=== PATIENT | female | born 1970 | race African-American/Black ===

== ENCOUNTER → 2020-07-01 10:50 | Outpatient (BNVA) | payer OTHER, SELFPAY | PROVIDERS: PCP Physician Assistant; Referring Provider Physician Assistant; Visit Provider Anesthesiology | DX: G89.4 Chronic pain syndrome (principal); M87.051 Idiopathic aseptic necrosis of right femur; Z79.891 Long term (current) use of opiate analgesic | CPT/HCPCS: 99214 ==

== ENCOUNTER → 2020-07-17 08:23 | Outpatient (BNVA) | payer OTHER, SELFPAY | PROVIDERS: PCP Physician Assistant; Visit Provider Anesthesiology | DX: M87.051 Idiopathic aseptic necrosis of right femur (principal); G89.4 Chronic pain syndrome; Z79.891 Long term (current) use of opiate analgesic | CPT/HCPCS: 99213 ==

== ENCOUNTER → 2020-08-14 08:17 | Outpatient (BNVA) | payer OTHER, SELFPAY | PROVIDERS: PCP Physician Assistant; Visit Provider Anesthesiology | DX: G89.4 Chronic pain syndrome (principal); M87.051 Idiopathic aseptic necrosis of right femur; Z79.891 Long term (current) use of opiate analgesic | CPT/HCPCS: 99212 ==

== ENCOUNTER 2020-08-14 09:24 | Outpatient (REF) | payer OTHER, SELFPAY ==
[2020-08-14 10:45] LABS: MANUAL DIFF FLAG NO
[2020-08-14 10:59] LABS: Basophils Percent Auto 0.6 % (0-2); Eosinophils Absolute Auto 0.3 X10*3/uL (0.0-0.4); Eosinophils Percent Auto 4.4 % (0-4); Hematocrit 34.6 % (37-47); Hemoglobin 10.4 g/dl (12.0-16.0); Imm Gran Abs Auto 0.02 X10*3/uL (0.00-0.03); Imm Gran Pct Auto 0.3 % (0.0-0.4); Mean Corpuscular HGB Conc 30.1 g/dl (31.0-35.0); Mean Corpuscular Hemoglobin 24.4 pg (27.0-33.0); Mean Platelet Volume 8.6 fL (9.4-12.3); Monocytes Absolute Auto 0.8 X10*3/uL (0.1-1.2); Monocytes Percent Auto 11.1 % (2-11); Neutrophils Absolute Auto 3.9 X10*3/uL (2.0-8.3); Neutrophils Percent Auto 55.6 % (45-73); Platelet Count 428 X10*3/uL (160-400); Red Blood Count 4.27 X10*6/uL (4.20-5.50); Red Cell Distribution Width 15.4 % (11.0-16.0)
[2020-08-14 11:27] LABS: Alanine Aminotransferase 11 U/L (0-31); Albumin Level 4.2 g/dL (3.5-5.0); Alkaline Phosphatase 131 U/L (39-117); Anion Gap 14 (12-20); Aspartate Amino Transferase 18 U/L (5-31); Bilirubin Total 0.6 mg/dL (0.0-1.0); Blood Urea Nitrogen 12 mg/dL (9-16); Calcium 9.5 mg/dL (8.4-10.2); Carbon Dioxide 24 mmol/L (22-29); Chloride 100 mmol/L (96-108); Estimated Glomerular Filt Rate 55; Glucose Fasting 89 mg/dL (60-99); Potassium 4.1 mmol/l (3.3-5.1); Sodium 134 mmol/L (135-145); Total Protein 6.9 g/dL (6.5-8.0)
[2020-08-14 11:36] LABS: Glucose Urine UA NEG (NEG); Leukocyte Esterase Urine 2+ (NEG); Nitrite Urine NEG (NEG); Urine Blood NEG (NEG); Urine Ketones NEG (NEG); Urine Protein NEG (NEG-TRACE)
[2020-08-14 11:39] LABS: Appearance Urine HAZY; Color Urine YELLOW
[2020-08-14 11:49] LABS: TSH reflex Free T4 4.98 mIU/mL (0.32-4.0)
[2020-08-14 12:04] LABS: Bacteria Urine 1+ /LPF; Mucus Urine 1+ /LPF; RBC Urine 0-2 /HPF (0); Squamous Epithelial Cell Urine 3+ /LPF
[2020-08-14 12:05] LABS: Estimated Average Glucose 128 mg/dL; Hemoglobin A1c % 6.1 %
[2020-08-14 12:35] LABS: Free T4 (Free Thyroxine) 0.94 ng/dL (0.71-1.85)
[2020-08-14 12:39] LABS: Creatinine Urine 109.46 mg/dL; Microalbum/Creatinine Ratio Ur 11.8 ug/mg cr
== END 2020-08-14 09:25 | disposition home or self-care (01) ==
LOC: HO.10HDL 09:24
PROVIDERS: Visit Provider Physician Assistant
DX: E11.29 Type 2 diabetes mellitus with other diabetic kidney complication (principal); R80.9 Proteinuria, unspecified; R30.0 Dysuria; N30.01 Acute cystitis with hematuria
CPT/HCPCS: 36415; 80053; 81001; 81003; 82043; 83036; 84439; 84443; 85025; 87086; 87147

== ENCOUNTER → 2020-09-11 10:27 | Outpatient (BNVA) | payer OTHER, SELFPAY | PROVIDERS: PCP Physician Assistant; Visit Provider Anesthesiology | DX: M87.051 Idiopathic aseptic necrosis of right femur (principal); G89.4 Chronic pain syndrome; F11.90 Opioid use, unspecified, uncomplicated | CPT/HCPCS: 99212 ==

== ENCOUNTER → 2020-10-09 09:03 | Outpatient (BNVA) | payer OTHER, SELFPAY | PROVIDERS: PCP Physician Assistant; Visit Provider Anesthesiology | DX: M87.051 Idiopathic aseptic necrosis of right femur (principal); G89.4 Chronic pain syndrome; F11.90 Opioid use, unspecified, uncomplicated | CPT/HCPCS: 99212 ==

== ENCOUNTER → 2020-11-06 10:05 | Outpatient (BNVA) | payer OTHER, SELFPAY | PROVIDERS: PCP Physician Assistant; Visit Provider Anesthesiology | DX: M87.051 Idiopathic aseptic necrosis of right femur (principal); G89.4 Chronic pain syndrome; F11.90 Opioid use, unspecified, uncomplicated ==

== ENCOUNTER 2020-11-20 17:39 | Outpatient (REF) | payer OTHER, SELFPAY ==
[2020-11-20 18:35] LABS: Glucose Urine UA NEG (NEG); Leukocyte Esterase Urine 1+ (NEG); Nitrite Urine NEG (NEG); UACC Culture Trigger YES; Urine Blood NEG (NEG); Urine Ketones NEG (NEG); Urine Protein NEG (NEG-TRACE)
[2020-11-20 18:36] LABS: Appearance Urine HAZY; Color Urine YELLOW
[2020-11-20 18:43] LABS: Bacteria Urine 3+ /LPF; Calcium Oxalate Crystals Urine 2+ /LPF; RBC Urine 0-2 /HPF (0); Squamous Epithelial Cell Urine 3+ /LPF; WBC Urine 50-75 /HPF (0-4)
== END 2020-11-20 17:40 | disposition home or self-care (01) ==
LOC: HO.LAB 17:39
PROVIDERS: PCP Physician Assistant; Visit Provider Physician Assistant
DX: R30.0 Dysuria (principal)
CPT/HCPCS: 81001; 81003; 87086; 87088; 87186

== ENCOUNTER 2020-11-23 13:21 | Outpatient (REF) | payer OTHER, SELFPAY ==
--- NOTE | ~2020-11-23 | MM_ITS ---
EXAMINATION: MM SCREENING DIGITAL BREAST TOMOSYNTHESIS, BILATERAL CLINICAL INFORMATION: Screening. Asymptomatic. The lifetime risk of breast cancer based on the Tyrer-Cuzick Model is 6%. COMPARISON: Mammography: 06/20/2019, 06/21/2018, 06/05/2017 TECHNIQUE: Digital breast tomosynthesis is performed in both the craniocaudal and mediolateral oblique views along with computer-aided detection (CAD). Synthesized 2D images are generated from the tomosynthesis. FINDINGS: There are scattered areas of fibroglandular density (ACR BI-RADS breast composition Category b). There are no significant masses, abnormal calcifications, or other abnormalities. Parenchymal pattern is similar to prior exams. No developing density. No abnormal calcifications. MM/MM tomosynthesis screening BI IMPRESSION: No mammographic evidence of malignancy. ASSESSMENT: BI-RADS 2: Benign RECOMMENDATION: Routine annual mammography screening. This patient's information was entered into a reminder system with a target due date for their next mammogram.
== END 2020-11-23 13:22 | disposition home or self-care (01) ==
LOC: HO.MAMMO 13:21
PROVIDERS: PCP Physician Assistant; Visit Provider Physician Assistant
DX: Z12.31 Encounter for screening mammogram for malignant neoplasm of breast (principal)
CPT/HCPCS: 77063; 77067

== ENCOUNTER 2020-12-02 10:02 | Outpatient (REF) | payer OTHER, SELFPAY ==
[2020-12-02 10:40] LABS: MANUAL DIFF FLAG NO
[2020-12-02 10:45] LABS: Glucose Urine UA NEG (NEG); Leukocyte Esterase Urine NEG (NEG); Nitrite Urine NEG (NEG); Urine Blood NEG (NEG); Urine Ketones NEG (NEG); Urine Protein NEG (NEG-TRACE)
[2020-12-02 10:49] LABS: Appearance Urine CLEAR; Color Urine YELLOW
[2020-12-02 10:56] LABS: Basophils Percent Auto 0.4 % (0-2); Eosinophils Absolute Auto 0.2 X10*3/uL (0.0-0.4); Eosinophils Percent Auto 2.1 % (0-4); Hematocrit 35.8 % (37-47); Hemoglobin 11.4 g/dl (12.0-16.0); Imm Gran Abs Auto 0.03 X10*3/uL (0.00-0.03); Imm Gran Pct Auto 0.4 % (0.0-0.4); Lymphocytes Percent Auto 34.9 % (20-40); Mean Corpuscular HGB Conc 31.8 g/dl (31.0-35.0); Mean Corpuscular Hemoglobin 26.5 pg (27.0-33.0); Mean Corpuscular Volume 83.3 fL (80-98); Mean Platelet Volume 8.6 fL (9.4-12.3); Monocytes Absolute Auto 0.6 X10*3/uL (0.1-1.2); Monocytes Percent Auto 6.5 % (2-11); Neutrophils Absolute Auto 4.8 X10*3/uL (2.0-8.3); Neutrophils Percent Auto 55.7 % (45-73); Platelet Count 340 X10*3/uL (160-400); Red Cell Distribution Width 15.8 % (11.0-16.0); White Blood Count 8.6 X10*3/uL (4.8-10.8)
[2020-12-02 11:21] LABS: Estimated Average Glucose 128 mg/dL; Hemoglobin A1c % 6.1 %
[2020-12-02 11:21] LABS: Creatinine Urine 119.62 mg/dL; Microalbum/Creatinine Ratio Ur 9.1 ug/mg cr
[2020-12-02 12:20] LABS: Alanine Aminotransferase 11 U/L (0-31); Albumin Level 4.4 g/dL (3.5-5.0); Alkaline Phosphatase 61 U/L (39-117); Anion Gap 14 (12-20); Aspartate Amino Transferase 14 U/L (5-31); Bilirubin Total 0.3 mg/dL (0.0-1.0); Blood Urea Nitrogen 12 mg/dL (9-16); Carbon Dioxide 24 mmol/L (22-29); Chloride 104 mmol/L (96-108); Cholesterol 201 mg/dL; Estimated Glomerular Filt Rate 52; Glucose Fasting 87 mg/dL (60-99); HDL Cholesterol 62 mg/dL; Iron 43 mcg/dL (30-160); LDL Cholesterol Calculated 103 mg/dl; Percent Iron Saturation 11 % (15-50); Potassium 4.4 mmol/L (3.3-5.1); Sodium 138 mmol/L (135-145); Total Iron Binding Capacity 388 mcg/dL (228-428); Total Protein 6.9 g/dL (6.5-8.0); Triglycerides 183 mg/dL; Unsaturated Iron Binding 345 ug/dL
== END 2020-12-02 10:03 | disposition home or self-care (01) ==
LOC: HO.LAB 10:02
PROVIDERS: PCP Physician Assistant; Visit Provider Physician Assistant
DX: E11.29 Type 2 diabetes mellitus with other diabetic kidney complication (principal); R80.9 Proteinuria, unspecified; D50.9 Iron deficiency anemia, unspecified; R30.0 Dysuria; N30.01 Acute cystitis with hematuria
CPT/HCPCS: 36415; 80053; 80061; 81003; 82043; 83036; 83540; 85025

== ENCOUNTER → 2020-12-04 08:46 | Outpatient (BNVA) | payer OTHER, SELFPAY | PROVIDERS: PCP Physician Assistant; Visit Provider Anesthesiology | DX: M87.051 Idiopathic aseptic necrosis of right femur (principal); G89.4 Chronic pain syndrome; F11.90 Opioid use, unspecified, uncomplicated; Z79.899 Other long term (current) drug therapy | CPT/HCPCS: 99212 ==

== ENCOUNTER → 2020-12-25 08:43 | Outpatient (BNVA) | payer OTHER, SELFPAY | PROVIDERS: PCP Physician Assistant; Visit Provider Anesthesiology | DX: M87.051 Idiopathic aseptic necrosis of right femur (principal); G89.4 Chronic pain syndrome; F11.90 Opioid use, unspecified, uncomplicated; Z79.899 Other long term (current) drug therapy | CPT/HCPCS: 99212 ==

== ENCOUNTER → 2021-01-22 09:17 | Outpatient (BNVA) | payer OTHER, SELFPAY | PROVIDERS: PCP Physician Assistant; Visit Provider Anesthesiology | DX: M87.051 Idiopathic aseptic necrosis of right femur (principal); G89.4 Chronic pain syndrome; F11.90 Opioid use, unspecified, uncomplicated; Z79.899 Other long term (current) drug therapy | CPT/HCPCS: 99212 ==

== ENCOUNTER 2021-08-02 09:59 | Outpatient (REF) | payer OTHER, SELFPAY ==
[2021-08-02 10:51] LABS: Hematocrit 35.7 % (37.0-47.0); Hemoglobin 11.2 g/dl (12.0-16.0); Mean Corpuscular HGB Conc 31.4 g/dl (31.0-35.0); Mean Corpuscular Hemoglobin 27.8 pg (27.0-33.0); Mean Corpuscular Volume 88.6 fL (80.0-98.0); Mean Platelet Volume 9.4 fL (9.4-12.3); Platelet Count 306 X10*3/uL (160-400); Red Blood Count 4.03 X10*6/uL (4.20-5.50); Red Cell Distribution Width 13.7 % (11.0-16.0); White Blood Count 8.9 X10*3/uL (4.8-10.8)
[2021-08-02 11:03] LABS: Alanine Aminotransferase 23 U/L (0-31); Albumin Level 4.3 g/dL (3.5-5.0); Alkaline Phosphatase 56 U/L (39-117); Anion Gap 14 (12-20); Aspartate Amino Transferase 24 U/L (5-31); Bilirubin Total 0.5 mg/dL (0.0-1.0); Blood Urea Nitrogen 16 mg/dL (9-16); Calcium 9.8 mg/dL (8.4-10.2); Carbon Dioxide 22 mmol/L (22-29); Chloride 107 mmol/L (96-108); Cholesterol 177 mg/dL; Estimated Glomerular Filt Rate 46; Glucose Fasting 120 mg/dL (60-99); HDL Cholesterol 50 mg/dL; LDL Cholesterol Calculated 82 mg/dl; Potassium 4.2 mmol/L (3.3-5.1); Sodium 139 mmol/L (135-145); Total Protein 6.9 g/dL (6.5-8.0); Triglycerides 225 mg/dL
[2021-08-02 11:14] LABS: TSH reflex Free T4 2.75 uIU/mL (0.32-4.0)
== END 2021-08-02 10:00 | disposition home or self-care (01) ==
LOC: HO.LAB 09:59
PROVIDERS: PCP Physician Assistant; Visit Provider Physician Assistant
DX: E11.29 Type 2 diabetes mellitus with other diabetic kidney complication (principal); R80.9 Proteinuria, unspecified; I10 Essential (primary) hypertension
CPT/HCPCS: 36415; 80053; 80061; 84443; 85027

== ENCOUNTER 2021-08-27 09:25 | Outpatient (REF) | payer OTHER, SELFPAY ==
[2021-08-27 10:28] LABS: Hemoglobin 11.6 g/dl (12.0-16.0); Mean Corpuscular HGB Conc 32.2 g/dl (31.0-35.0); Mean Corpuscular Hemoglobin 27.8 pg (27.0-33.0); Mean Corpuscular Volume 86.3 fL (80.0-98.0); Mean Platelet Volume 9.1 fL (9.4-12.3); Platelet Count 333 X10*3/uL (160-400); Red Blood Count 4.17 X10*6/uL (4.20-5.50); Red Cell Distribution Width 13.6 % (11.0-16.0)
[2021-08-27 10:36] LABS: Prothrombin Time 11.5 SEC (9.9-13.0)
[2021-08-27 10:51] LABS: Estimated Average Glucose 143 mg/dL; Hemoglobin A1c % 6.6 %
[2021-08-27 11:05] LABS: Alanine Aminotransferase 22 U/L (0-31); Albumin Level 4.3 g/dL (3.5-5.0); Alkaline Phosphatase 61 U/L (39-117); Anion Gap 18 (12-20); Aspartate Amino Transferase 21 U/L (5-31); Bilirubin Direct 0.2 mg/dL (0.0-0.5); Bilirubin Total 0.4 mg/dL (0.0-1.0); Blood Urea Nitrogen 20 mg/dL (9-16); Calcium 9.7 mg/dL (8.4-10.2); Carbon Dioxide 18 mmol/L (22-29); Chloride 108 mmol/L (96-108); Estimated Glomerular Filt Rate 48; Glucose Random 122 mg/dL (60-115); Potassium 4.4 mmol/L (3.3-5.1); Sodium 140 mmol/L (135-145)
[2021-08-27 11:08] LABS: Carbon Dioxide 18 mmol/L (22-29); Chloride 108 mmol/L (96-108); Cholesterol 178 mg/dL; HDL Cholesterol 46 mg/dL; Iron 63 mcg/dL (30-160); LDL Cholesterol Calculated 87 mg/dl; Lactate Dehydrogenase 137 U/L (122-220); Magnesium 1.9 mg/dL (1.6-2.6); Percent Iron Saturation 16 % (15-50); Phosphorus 3.1 mg/dL (2.7-4.5); Potassium 4.5 mmol/L (3.3-5.1); Sodium 140 mmol/L (135-145); Total Iron Binding Capacity 403 mcg/dL (228-428); Triglycerides 228 mg/dL; Unsaturated Iron Binding 340 ug/dL
[2021-08-27 11:33] LABS: Ferritin 71 ng/mL (10-250); Thyroid Stimulating Hormone 2.53 uIU/mL (0.32-4.0); Vitamin D 25-OH Total 53.1 ng/mL (>30)
[2021-08-27 11:39] LABS: Vitamin B12 434 pg/mL (200-900)
[2021-08-29 12:01] LABS: Calcium (PTHI) 9.3 mg/dL (8.6-10.2); PTHI 39 pg/mL (14-64)
[2021-08-30 11:47] LABS: Vitamin B1 10 nmol/L (8-30)
== END 2021-08-27 09:26 | disposition home or self-care (01) ==
LOC: HO.LAB 09:25
PROVIDERS: Absent Provider Physician Assistant; PCP Physician Assistant; Visit Provider Internal Medicine
DX: Z01.818 Encounter for other preprocedural examination (principal)
CPT/HCPCS: 36415; 80048; 80061; 80076; 82306; 82374; 82435; 82550; 82607; 82728; 82746; 83036; 83540; 83615; 83735; 83970; 84100; 84132; 84295; 84425; 84443; 84550; 85027; 85610

== ENCOUNTER 2021-09-01 11:54 | Outpatient (REF) | payer OTHER, SELFPAY ==
[2021-09-01 12:41] LABS: Influenza A PCR NEGATIVE (Negative); Influenza B PCR NEGATIVE (Negative); Resp Syncy Virus RNA Qual PCR NEGATIVE (Negative); SARS COV2 PCR INHOUSE NEGATIVE (Negative)
== END 2021-09-01 11:55 | disposition home or self-care (01) ==
LOC: HO.LNP 11:54
PROVIDERS: Visit Provider Physician Assistant
DX: Z20.822 Contact with and (suspected) exposure to COVID-19 (principal); R05.9 Cough, unspecified
CPT/HCPCS: 0241U

== ENCOUNTER 2021-09-04 14:19 | Outpatient (REF) | payer OTHER, SELFPAY ==
--- NOTE | ~2021-09-04 | XR_ITS ---
EXAMINATION: XR CHEST CLINICAL INFORMATION: Bronchitis COMPARISON: 09/29/2017 TECHNIQUE: 2 views of the chest were obtained. FINDINGS: The lungs are well expanded. There is no focal consolidation, edema, or effusion. No pneumothorax. The cardiomediastinal silhouette is within normal limits. No acute osseous abnormality. XR/XR chest 2V IMPRESSION: Clear lungs.
== END 2021-09-04 14:20 | disposition home or self-care (01) ==
LOC: HO.HMGCX 14:19
PROVIDERS: PCP Physician Assistant; Visit Provider Physician Assistant
DX: J40 Bronchitis, not specified as acute or chronic (principal)
CPT/HCPCS: 71046

== ENCOUNTER 2021-09-12 08:41 | Outpatient (REF) | payer OTHER, SELFPAY ==
--- NOTE | ~2021-09-12 | US_ITS ---
EXAMINATION: US ABDOMEN COMPLETE CLINICAL INFORMATION: Morbid (severe) obesity due to excess calories. COMPARISON: CTA chest 10/06/2018. Ultrasound abdomen 02/28/2016 and 03/02/2015. TECHNIQUE: Real-time imaging of the abdominal viscera. FINDINGS: PANCREAS: The visualized head and body of the pancreas appears unremarkable. Remainder of the pancreas is obscured by bowel gas. ABDOMINAL AORTA: The proximal, mid, and distal segments are normal in caliber. INFERIOR VENA CAVA: Unremarkable LIVER: Right lobe measures 15.3 cm. Left lobe measures 13.2 cm The liver contour is normal. Diffuse increased parenchymal echogenicity. No focal hepatic lesion. There is no intrahepatic biliary duct dilatation seen. Hepatopedal blood flow in the main portal vein. GALLBLADDER: Surgically absent. COMMON BILE DUCT: Normal in caliber measuring 0.3 cm in diameter. RIGHT KIDNEY: Normal. No hydronephrosis. No renal calculi or focal parenchymal lesions. The kidney measures 11.0 cm in maximum dimension. LEFT KIDNEY: Lower pole 2.6 cm anechoic cyst. Lower pole 1 x 0.6 x 0.7 cm calculus. No hydronephrosis. The kidney measures 9.6 cm in maximum dimension. SPLEEN: Normal. The spleen measures 9.4 cm in maximum dimension. FREE FLUID: None. US/US abdomen complete IMPRESSION: 1. There is generalized increase in hepatic echotexture, consistent with fatty infiltration or hepatocellular disease. Please correlate clinically. No focal hepatic mass or intrahepatic biliary duct dilatation is seen. 2. Status postcholecystectomy. 3. Left renal 2.6 cm anechoic cyst. Lower pole 1 cm nonobstructing calculus.
== END 2021-09-12 08:42 | disposition home or self-care (01) ==
LOC: HO.HMGCX 08:41
PROVIDERS: Absent Provider Internal Medicine; PCP Physician Assistant; Visit Provider Physician Assistant
DX: Z01.818 Encounter for other preprocedural examination (principal); E66.01 Morbid (severe) obesity due to excess calories; Z68.35 Body mass index [BMI] 35.0-35.9, adult
CPT/HCPCS: 76700

== ENCOUNTER 2021-10-24 09:22 | Day surgery (SDC) | payer OTHER, SELFPAY ==
[2021-10-20 14:27] VITALS: BMI 38.2
--- NOTE | 2021-10-23 10:12 | P.CONAN_ITS ---
Documented by User: Leonela Castle NP 10/23/21 10:23 HPI - Anesthesia Eval Consult details Narrative: 51yo F for Upper Endoscopy and Colonoscopy preop abx per GI d/t h/o total joints PMFSH Active Problems Active Problems: All Active Problems (Updated 10/20/21 @ 14:27 by Sophia Moody, RN) Avascular necrosis of bone of right hip (Acute) Chronic pain syndrome (Acute) Chronic, continuous use of opioids (Acute) Type 2 diabetes mellitus (Acute) Hospital discharge follow-up (Acute) Bacteremia due to Escherichia coli (Acute) UTI (urinary tract infection) (Acute) Acute kidney injury (Acute) Iron deficiency anemia (Acute) Dental implant pain (Acute) Annual physical exam (Acute) Plantar fasciitis (Acute) Obese (Acute) Family history of colon cancer (Acute) Sinusitis (Acute) Pre-op evaluation (Acute) Neuropathy (Acute) IBS (irritable bowel syndrome) (Acute) Bronchitis (Acute) S/P total hip arthroplasty (Acute) Past Medical History Medical History (Updated 10/23/21 @ 10:22 by Leonela Castle NP) Chronic pain syndrome Chronic, continuous use of opioids COVID-19 vaccine series completed IBS (irritable bowel syndrome) Neuropathy Personal history of COVID-19 Snores Type 2 diabetes mellitus Family History Family History Father High cholesterol Mother Colon cancer Cancer Mental problem Maternal Grandmother Diabetes Maternal Grandfather Diabetes Paternal Grandmother No problems noted. Paternal Grandfather No problems noted. Other Substance abuse Surgical History Surgical History (Updated 10/20/21 @ 14:25 by Sophia Moody RN) Fibroids H/O abdominoplasty H/O removal of cyst History of bilateral tubal ligation History of knee replacement, total History of reversal of tubal ligation Hx of cystoscopy Hx of tonsillectomy Kidney stones S/P total hip arthroplasty Social History Social History Housing: House Are you a primary direct care counselor to a significant other at home: No Do you presently have visiting nurse or other home services: No Alcohol intake: current Alcohol intake frequency: holidays/special occasions only Patient Tobacco Use Status: Never used Tobacco e-Cigarette/Vaping Use: Never Used Second Hand Smoke Exposure: Yes Use of substances other than those prescribed or required for medical reasons: No Are you DNR?: No Advance Directives: No Advance Directives Information Provided: Yes Advance Directives on File: No Patient : No FDLMP: 10/13/2021 : No Poor oral hygiene: No service: No Current occupational status: 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 Allergies Allergy/AdvReac Type Severity Reaction Status Date / Time sumatriptan [From Allergy Unknown Throat Verified 10/20/21 14:22 Imitrex] tightness Home Medications Medication Instructions Recorded Confirmed Last Taken Type albuterol sulfate 1 puff 06/27/20 08/04/21 Unknown History 90 mcg/actuation INHALATION QID aerosol inhaler meclizine 25 mg 25 mg PO BID 06/27/20 08/04/21 Unknown History tablet omeprazole 20 mg PO DAILY 06/27/20 10/20/21 Unknown History magnesium 20 mg tablet,delayed release (Prilosec OTC) zolpidem 10 mg 10 mg PO BEDTIME 06/27/20 08/04/21 Unknown History tablet PRN dicyclomine 20 mg 20 mg PO QID 08/05/20 10/20/21 Unknown History tablet blood sugar #10 ea 09/26/20 08/04/21 Unknown History diagnostic (FreeStyle Lite Strips) fluticasone 2 spray 10/20/21 10/20/21 Unknown History propionate 50 INTRANASAL DAILY mcg/actuation nasal spray,suspension lorazepam 1 mg 1 tab PO DAILY 10/20/21 10/20/21 Unknown History tablet PRN Exam Exam Date and Time: October 23, 2021 1012 Height,Weight and Vital Signs: Height 5 ft 1.5 in Weight 93.44 kg Pertinent Lab Results Pertinent Lab Results: Laboratory Tests 08/27/21 08/27/21 08/27/21 10:05 10:05 10:05 WBC 10.0 Hgb 11.6 L Hct 36.0 L Plt Count 333 Sodium 140 Potassium 4.5 Chloride 108 Carbon Dioxide 18 L BUN 20 H Creatinine 1.19 Assessment and Plan Assessment Anesthesia Assessment: Chart Reviewed Documented by User: John Gonzalez 10/24/21 11:37 PMF Past Medical History Medical History (Updated 10/23/21 @ 10:22 by Leonela Castle NP) Chronic pain syndrome Chronic, continuous use of opioids COVID-19 vaccine series completed IBS (irritable bowel syndrome) Neuropathy Personal history of COVID-19 Snores Type 2 diabetes mellitus Functional capacity: independent ambulation Family History Family History Father High cholesterol Mother Colon cancer Cancer Mental problem Maternal Grandmother Diabetes Maternal Grandfather Diabetes Paternal Grandmother No problems noted. Paternal Grandfather No problems noted. Other Substance abuse Family history of problems with anesthesia: Yes (Mother delayed emergence ) Surgical History Surgical History (Updated 10/20/21 @ 14:25 by Sophia Moody RN) Fibroids H/O abdominoplasty H/O removal of cyst History of bilateral tubal ligation History of knee replacement, total History of reversal of tubal ligation Hx of cystoscopy Hx of tonsillectomy Kidney stones S/P total hip arthroplasty History of Problems with Anesthesia: No Social History Social History Housing: House Are you a primary direct care counselor to a significant other at home: No Do you presently have visiting nurse or other home services: No Alcohol intake: current Alcohol intake frequency: holidays/special occasions only Patient Tobacco Use Status: Never used Tobacco e-Cigarette/Vaping Use: Never Used Second Hand Smoke Exposure: Yes Use of substances other than those prescribed or required for medical reasons: No Are you DNR?: No Advance Directives: No Advance Directives Information Provided: Yes Advance Directives on File: No Patient : No FDLMP: 10/13/2021 : No Poor oral hygiene: No service: No Current occupational status: 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 Allergies Allergy/AdvReac Type Severity Reaction Status Date / Time sumatriptan [From Allergy Unknown Throat Verified 10/20/21 14:22 Imitrex] tightness Home Medications Medication Instructions Recorded Confirmed Last Taken Type albuterol sulfate 1 puff 06/27/20 08/04/21 Unknown History 90 mcg/actuation INHALATION QID aerosol inhaler meclizine 25 mg 25 mg PO BID 06/27/20 08/04/21 Unknown History tablet omeprazole 20 mg PO DAILY 06/27/20 10/20/21 Unknown History magnesium 20 mg tablet,delayed release (Prilosec OTC) zolpidem 10 mg 10 mg PO BEDTIME 06/27/20 08/04/21 Unknown History tablet PRN dicyclomine 20 mg 20 mg PO QID 08/05/20 10/20/21 Unknown History tablet blood sugar #10 ea 09/26/20 08/04/21 Unknown History diagnostic (FreeStyle Lite Strips) fluticasone 2 spray 10/20/21 10/20/21 Unknown History propionate 50 INTRANASAL DAILY mcg/actuation nasal spray,suspension lorazepam 1 mg 1 tab PO DAILY 10/20/21 10/20/21 Unknown History tablet PRN Exam Airway Mallampati Class: II TM Dist: >3cm Neck ROM: Full Loose/Missing/Broken Teeth: Yes Heart: rrr Lungs: bl breath sounds Assessment and Plan Assessment Anesthesia Assessment: Anesthesia Plan Discussed Final Anesthetic Review Family History of Problems with Anesthesia: Yes (Mother delayed emergence ) History of Problems with Anesthesia: No NPO: Yes ASA Class: III Final Preanesthetic Review: Meds/Allgs Chart Reviewed and Anes Risks/Benef Reviewed Patient Risk: Intermediate Procedure Risk: Intermediate Anesthetic Plan Anesthetic Plan: MAC: Disposition: Standard PACU
[2021-10-24 09:43] VITALS: BP 130/76; PULSE 86; RESP 17; TEMP 36.6; O2SAT 96
[2021-10-24 09:44] LABS: Glucose, Whole Blood 146 mg/dL (60-115)
[2021-10-24] MEDS: Gentamicin Sulfate/NaCl 80 MG/100 ML PIGGYBACK 100 MG IV (09:45)
[2021-10-24] MEDS: Lactated Ringers 1,000 ML 100 ML IVCONT (10:01)
[2021-10-24 10:03] LABS: UPreg QC Valid YES
[2021-10-24 10:05] LABS: Urine Pregnancy NEGATIVE (NEGATIVE)
[2021-10-24] MEDS: Ampicillin Sodium 2 GM in 0.9 % Sodium Chloride 100 ML IV (10:10)
[2021-10-24 12:36] VITALS: BP 99/64; PULSE 85; RESP 17; TEMP 36.4; O2SAT 100
--- NOTE | 2021-10-24 12:37 | PM.OP ---
Brief Operative Note Date of Service: 10/24/21 Pre-op diagnosis: GERD, Screening Post-op diagnosis: other (Hiatal hernia, Colon polyps) Procedure: EGD with biopsies, Colonoscopy to the cecum with bx/removal of polyps Surgeon: Quan Kilpatrick Anesthesia: MAC Was an Dairy Nutritionist used for this Procedure?: No Estimated blood loss (mL): 3.0 Pathology: other (A. EG Junction at 35cm B. Colon polyps at 20cm) Condition: stable Disposition: PACU
[2021-10-24 12:54] VITALS: BP 105/65; PULSE 78; RESP 16; TEMP 36.4; O2SAT 97
--- NOTE | 2021-10-24 15:11 | OP_ITS ---
SURGEON: Quan Kilpatrick MD INDICATIONS: The patient presents for evaluation of gastroesophageal reflux, personal history of tubular adenoma of the colon, family history of colon cancer, and colorectal cancer screening. Full consent was obtained from her for both procedures, including risks of bleeding and perforation. PREOPERATIVE DIAGNOSIS: POSTOPERATIVE DIAGNOSIS: PROCEDURE PERFORMED: Esophagogastroduodenoscopy with biopsies and colonoscopy to the cecum with biopsy and removal of polyps. ESTIMATED BLOOD LOSS: COMPLICATIONS: ANESTHESIA: Monitored anesthesia care. ASSISTANTS: SPECIMENS: PREOPERATIVE DIAGNOSES: Gastroesophageal reflux, colorectal cancer screening, family history of colon cancer, personal history of tubular adenoma of the colon. POSTOPERATIVE DIAGNOSES: Gastroesophageal reflux, colorectal cancer screening, family history of colon cancer, personal history of tubular adenoma of the colon, hiatal hernia, colon polyps, diverticulosis, and internal hemorrhoids. DESCRIPTION OF PROCEDURE: The patient was placed in the left lateral decubitus position. The Olympus video gastroscope was passed in the posterior oropharynx and upper esophagus under direct vision. The scope was passed slowly into the distal esophagus. The gastroesophageal junction appeared at 35 cm. There was some slight irregularity consistent with reflux, but no evidence of esophagitis nor any definitive evidence of Gregory's mucosa. There was a small hiatal hernia. The scope was advanced to pylorus and the duodenum was cannulated in the descending portion. The duodenum including the bulb appeared normal without mass or ulceration. The scope withdrawn back in the stomach. The gastric antrum and body appeared normal with good peristalsis. The scope was retroflexed visualizing the proximal stomach carefully, which appeared normal, without any sign of mass or ulceration. Scope was straightened and withdrawn back to the esophagus. Biopsies were obtained at the EG junction at 35 cm. Proximal to this, the esophageal mucosa appeared normal. The scope was withdrawn from the patient. She was turned around for colonoscopy. The digital rectal exam revealed no abnormalities. The Olympus video pediatric colonoscope was entered into the rectum and advanced easily to the cecum. Once in the cecum, I did identify cecal pouch with appendiceal orifice and a normal-appearing ileocecal valve. There was transillumination of light deep in the right lower quadrant. Portions of the cecum were not visualized due to retained stool, which could not be irrigated and suctioned away. The scope was slowly withdrawn assessing all mucosal surfaces carefully. For the most part, preparation was good, but in the left colon and in different areas of the colon were some residual solid stool. At 20 cm, were 2 hyperplastic appearing polyps, which were biopsied and completely removed. Each of these were approximately 5 mm in diameter. I did not visualize any other polyps, colitis, nor angiodysplasia. There was a mild amount of sigmoid diverticulosis. In the rectum, the scope was retroflexed visualizing internal hemorrhoids, but no other pathology. The rectal mucosa appeared normal. The scope was straightened and withdrawn from the patient. She tolerated the procedures well and was returned to recovery area in stable condition. IMPRESSION: 1. Hiatal hernia, gastroesophageal reflux. 2. Colon polyps. 3. Diverticulosis. 4. Internal hemorrhoids. PLAN: The results of the biopsies will be checked. She was advised to continue her current regimen of Prilosec for her reflux. I did recommend a followup colonoscopy in 3 years for further screening and surveillance given her previous history of tubular adenomas, her family history of colon cancer in her mother in her 50s, and today's somewhat limited exam because of the prep. She will otherwise see me again on a p.r.n. basis. MD MRACO A Martinez/CHRISTINE / [id number] MTDD
== END 2021-10-24 13:45 | disposition home or self-care (01) ==
PROVIDERS: Nurse Practitioner; PCP Physician Assistant; Visit Provider Internal Medicine
PROC: (CPT 45380; principal; 2021-10-24 10:50)
DX: Z12.11 Encounter for screening for malignant neoplasm of colon (principal); Z86.010 Personal history of colon polyps; Z80.0 Family history of malignant neoplasm of digestive organs; K63.5 Polyp of colon; K57.30 Diverticulosis of large intestine without perforation or abscess without bleeding; K64.8 Other hemorrhoids; K58.0 Irritable bowel syndrome with diarrhea; K21.9 Gastro-esophageal reflux disease without esophagitis; K44.9 Diaphragmatic hernia without obstruction or gangrene; I10 Essential (primary) hypertension; F32.9 Major depressive disorder, single episode, unspecified; E66.9 Obesity, unspecified; Z68.39 Body mass index [BMI] 39.0-39.9, adult; J45.909 Unspecified asthma, uncomplicated; E11.9 Type 2 diabetes mellitus without complications; Z79.84 Long term (current) use of oral hypoglycemic drugs; Z79.899 Other long term (current) drug therapy; Z79.51 Long term (current) use of inhaled steroids; Z88.8 Allergy status to other drugs, medicaments and biological substances; Z90.49 Acquired absence of other specified parts of digestive tract; Z96.641 Presence of right artificial hip joint; Z96.651 Presence of right artificial knee joint
CPT/HCPCS: 45380; 43239; 81025; 82947; 88305; J0290; J1580; J2370

== ENCOUNTER 2021-11-24 11:35 | Outpatient (REF) | payer OTHER, SELFPAY ==
[2021-11-24 12:39] LABS: Hematocrit 40.1 % (37.0-47.0); Hemoglobin 12.7 g/dl (12.0-16.0); Mean Corpuscular HGB Conc 31.7 g/dl (31.0-35.0); Mean Corpuscular Hemoglobin 27.3 pg (27.0-33.0); Mean Corpuscular Volume 86.2 fL (80.0-98.0); Mean Platelet Volume 9.5 fL (9.4-12.3); Platelet Count 296 X10*3/uL (160-400); Red Blood Count 4.65 X10*6/uL (4.20-5.50); Red Cell Distribution Width 13.7 % (11.0-16.0); White Blood Count 6.5 X10*3/uL (4.8-10.8)
[2021-11-24 12:41] LABS: Estimated Average Glucose 186 mg/dL; Hemoglobin A1c % 8.1 %
[2021-11-24 13:08] LABS: Alanine Aminotransferase 65 U/L (0-31); Albumin Level 4.7 g/dL (3.5-5.0); Alkaline Phosphatase 57 U/L (39-117); Anion Gap 15 (12-20); Aspartate Amino Transferase 63 U/L (5-31); Bilirubin Total 0.6 mg/dL (0.0-1.0); Blood Urea Nitrogen 18 mg/dL (9-16); Calcium 10.5 mg/dL (8.4-10.2); Carbon Dioxide 25 mmol/L (22-29); Chloride 102 mmol/L (96-108); Cholesterol 225 mg/dL; Estimated Glomerular Filt Rate 46; Glucose Fasting 172 mg/dL (60-99); HDL Cholesterol 40 mg/dL; Potassium 4.5 mmol/L (3.3-5.1); Sodium 137 mmol/L (135-145); Total Protein 7.5 g/dL (6.5-8.0); Triglycerides 414 mg/dL
[2021-11-24 13:19] LABS: TSH reflex Free T4 2.76 uIU/mL (0.32-4.0)
[2021-11-24 14:28] LABS: Creatinine Urine 163.98 mg/dL; Microalbum/Creatinine Ratio Ur 25.6 ug/mg cr
== END 2021-11-24 11:36 | disposition home or self-care (01) ==
LOC: HO.LAB 11:35
PROVIDERS: PCP Physician Assistant; Visit Provider Physician Assistant
DX: G89.29 Other chronic pain (principal); R51.9 Headache, unspecified; U09.9 Post COVID-19 condition, unspecified
CPT/HCPCS: 36415; 80053; 80061; 82043; 83036; 84443; 85027

== ENCOUNTER 2021-12-03 09:13 | Outpatient (REF) | payer OTHER, SELFPAY ==
--- NOTE | 2021-12-03 09:16 | EMG_ITS ---
This is a 51-year-old woman with a history of diabetes type 2 for few years, on metformin and Januvia with 6-month history of bilateral lower extremity paresthesia intermittently in the lower extremities. Neurological examination is normal with normal sensation and reflexes. IMPRESSION: Rule out peripheral neuropathy. Nerve conduction EMG study: Normal electrodiagnostic study of both lower extremities with no evidence of nerve entrapment or generalized neuropathy. Normal EMG of the left L4-S1 innervated muscles. MD MALINA Reyna/CHRISTINE / [id number]
== END 2021-12-03 09:14 | disposition home or self-care (01) ==
LOC: HO.NEURO 09:13
PROVIDERS: Internal Medicine; PCP Physician Assistant; Visit Provider Physician Assistant
DX: E11.42 Type 2 diabetes mellitus with diabetic polyneuropathy (principal); Z11.0 Encounter for screening for intestinal infectious diseases
CPT/HCPCS: 87338; 95885; 95911

== ENCOUNTER 2022-01-29 12:08 | Outpatient (REF) | payer OTHER, SELFPAY ==
--- NOTE | ~2022-01-29 | MM_ITS ---
EXAMINATION: MM SCREENING DIGITAL BREAST TOMOSYNTHESIS, BILATERAL CLINICAL INFORMATION: Screening. Asymptomatic. The lifetime risk of breast cancer based on the Tyrer-Cuzick Model is 6.1%. COMPARISON: Mammography: 11/23/2020 and studies dating back to 10/30/2011. TECHNIQUE: Digital breast tomosynthesis is performed in both the craniocaudal and mediolateral oblique views along with computer-aided detection (CAD). Synthesized 2D images are generated from the tomosynthesis. FINDINGS: There are scattered areas of fibroglandular density (ACR BI-RADS breast composition Category b). There are no new significant masses, abnormal calcifications, or other abnormalities. About the deep upper outer aspect of the right breast there are some stable calcifications associated with what appears to be a lobular density which may represent a lymph node and has been present previously. MM/MM tomosynthesis screening BI IMPRESSION: There are no significant changes from prior study. ASSESSMENT: BI-RADS 2: Benign RECOMMENDATION: Routine annual mammography screening. This patient's information was entered into a reminder system with a target due date for their next mammogram.
== END 2022-01-29 12:09 | disposition home or self-care (01) ==
LOC: HO.MAMMO 12:08
PROVIDERS: PCP Physician Assistant; Visit Provider Physician Assistant
DX: Z12.31 Encounter for screening mammogram for malignant neoplasm of breast (principal)
CPT/HCPCS: 77063; 77067

== ENCOUNTER 2022-05-15 10:49 | Outpatient (REF) | payer OTHER, SELFPAY ==
--- NOTE | ~2022-05-15 | XR_ITS ---
EXAMINATION: XR ABDOMEN KUB CLINICAL INDICATION: Unspecified abdominal pain. COMPARISON: None TECHNIQUE: AP view of the abdomen. FINDINGS: Postsurgical changes of cholecystectomy and total right hip arthroplasty showing intact hardware. Significant fecal residual is noted within the large bowel. No evidence of any abnormal bowel dilatation. Multiple phleboliths are seen in the pelvis. No definite radiopaque density to suspect urinary tract calculus. XR/XR KUB IMPRESSION: 1. Significant fecal residual within the large bowel without any abnormal bowel dilatation. 2. Postsurgical changes of prior cholecystectomy and total right hip arthroplasty.
[2022-05-15 12:04] LABS: Hematocrit 35.6 % (37.0-47.0); Hemoglobin 11.5 g/dl (12.0-16.0); Mean Corpuscular HGB Conc 32.3 g/dl (31.0-35.0); Mean Corpuscular Hemoglobin 27.4 pg (27.0-33.0); Mean Platelet Volume 9.1 fL (9.4-12.3); Platelet Count 339 X10*3/uL (160-400); Red Blood Count 4.19 X10*6/uL (4.20-5.50); Red Cell Distribution Width 13.5 % (11.0-16.0); White Blood Count 7.5 X10*3/uL (4.8-10.8)
[2022-05-15 12:20] LABS: Alanine Aminotransferase 26 U/L (0-31); Albumin Level 4.3 g/dL (3.5-5.0); Alkaline Phosphatase 57 U/L (39-117); Anion Gap 17 (12-20); Aspartate Amino Transferase 28 U/L (5-31); Bilirubin Total 0.4 mg/dL (0.0-1.0); Blood Urea Nitrogen 19 mg/dL (9-16); Calcium 9.7 mg/dL (8.4-10.2); Carbon Dioxide 22 mmol/L (22-29); Chloride 104 mmol/L (96-108); Cholesterol 223 mg/dL; Estimated Glomerular Filt Rate 50; Glucose Fasting 108 mg/dL (60-99); HDL Cholesterol 53 mg/dL; LDL Cholesterol Calculated 132 mg/dl; Potassium 4.6 mmol/L (3.3-5.1); Sodium 138 mmol/L (135-145); Triglycerides 193 mg/dL
[2022-05-15 12:30] LABS: TSH reflex Free T4 1.88 uIU/mL (0.32-4.0)
[2022-05-15 13:05] LABS: Appearance Urine Clear; Color Urine Straw; Glucose Urine UA Negative (Negative); Leukocyte Esterase Urine Negative (Negative); Nitrite Urine Negative (Negative); Specific Gravity - Urine 1.025 (1.005-1.025); Urine Blood Negative (Negative); Urine Ketones Negative (Negative); Urine Protein Negative (Neg-Trace)
== END 2022-05-15 10:50 | disposition home or self-care (01) ==
LOC: HO.LAB 10:49
PROVIDERS: PCP Physician Assistant; Visit Provider Physician Assistant
DX: E11.42 Type 2 diabetes mellitus with diabetic polyneuropathy (principal); R10.9 Unspecified abdominal pain; R30.0 Dysuria
CPT/HCPCS: 36415; 74018; 80053; 80061; 81003; 84443; 85027

== ENCOUNTER 2022-07-14 10:02 | Outpatient (REF) | payer OTHER, SELFPAY ==
--- NOTE | ~2022-07-14 | FL_ITS ---
EXAMINATION: XR GI SERIES CLINICAL INFORMATION: Morbid to severe obesity due to excess calories COMPARISON: None TECHNIQUE: Routine upper GI air-contrast study was performed in upright and lying position. FINDINGS: Following oral administration of thick barium and effervescent granules there is normal propagation of bolus from the oral cavity through the pharynx, esophagus into stomach without any evidence of obstruction, narrowing or stricture. On placing patient supine and prone lying the course, caliber and peristalsis of the stomach, duodenal bulb and the sweep is normal. The mucosal pattern of the stomach, duodenum and the sweep is normal. There is no gastroesophageal reflux or hiatal area. FLUOROSCOPY TIME: 1.9 minutes DOSE AREA PRODUCT: 37.603 uGy-m2 (microgray-meter squared) FL/FL upper GI series IMPRESSION: Unremarkable upper GI air-contrast study.
== END 2022-07-14 10:03 | disposition home or self-care (01) ==
LOC: HO.XRAY 10:02
PROVIDERS: Visit Provider Physician Assistant
DX: E66.01 Morbid (severe) obesity due to excess calories (principal); Z68.35 Body mass index [BMI] 35.0-35.9, adult
CPT/HCPCS: 74240

== ENCOUNTER 2022-08-25 11:12 | Outpatient (REF) | payer OTHER, SELFPAY ==
--- NOTE | ~2022-08-25 | XR_ITS ---
EXAMINATION: XR CHEST CLINICAL INFORMATION: Bronchitis COMPARISON: 09/04/2021 TECHNIQUE: 2 views of the chest were obtained. FINDINGS: Normal symmetric lung volumes. No parenchymal consolidation. No pleural effusion. No pneumothorax. Cardiomediastinal silhouette and pulmonary vascularity are within normal limits. No acute osseous abnormalities. XR/XR chest 2V IMPRESSION: Clear lungs
--- NOTE | 2022-08-25 11:22 | ECG_ITS ---
Test Reason : BRONCHITIS Blood Pressure : / mmHG Vent. Rate : 080 BPM Atrial Rate : 080 BPM P-R Int : 132 ms QRS Dur : 080 ms QT Int : 364 ms P-R-T Axes : 033 012 016 degrees QTc Int : 419 ms Normal sinus rhythm Normal ECG Heart rate has decreased Referred By: Jovanni Fine Electronically Signed By:OSMIN RIDDLE MD
[2022-08-25 12:02] LABS: Hematocrit 37.2 % (37.0-47.0); Hemoglobin 11.8 g/dl (12.0-16.0); Mean Corpuscular HGB Conc 31.7 g/dl (31.0-35.0); Mean Corpuscular Hemoglobin 27.3 pg (27.0-33.0); Mean Corpuscular Volume 86.1 fL (80.0-98.0); Platelet Count 290 X10*3/uL (160-400); Red Blood Count 4.32 X10*6/uL (4.20-5.50); Red Cell Distribution Width 14.7 % (11.0-16.0); White Blood Count 10.5 X10*3/uL (4.8-10.8)
[2022-08-25 12:08] LABS: Prothrombin Time 10.9 SEC (10.0-13.1)
[2022-08-25 12:12] LABS: Appearance Urine Clear; Color Urine Yellow; Glucose Urine UA Negative (Negative); Leukocyte Esterase Urine Negative (Negative); Nitrite Urine Negative (Negative); PH 6.5 (5.0-9.0); Urine Blood Negative (Negative); Urine Ketones Negative (Negative); Urine Protein Trace mg/dL (Neg-Trace)
[2022-08-25 12:59] LABS: Anion Gap 15 (12-20); Blood Urea Nitrogen 20 mg/dL (9-16); Calcium 9.5 mg/dL (8.4-10.2); Carbon Dioxide 27 mmol/L (22-29); Chloride 102 mmol/L (96-108); Estimated Glomerular Filt Rate 53; Glucose Random 149 mg/dL (60-115); Potassium 4.5 mmol/L (3.3-5.1); Sodium 139 mmol/L (135-145)
== END 2022-08-25 11:13 | disposition home or self-care (01) ==
LOC: HO.LAB 11:12
PROVIDERS: PCP Physician Assistant; Visit Provider Physician Assistant
DX: J40 Bronchitis, not specified as acute or chronic (principal); R30.0 Dysuria
CPT/HCPCS: 36415; 71046; 80048; 81003; 85027; 85610; 93005

== ENCOUNTER 2022-09-17 10:00 | Outpatient (REF) | payer OTHER, SELFPAY ==
[2022-09-17 11:32] LABS: Estimated Average Glucose 186 mg/dL; Hemoglobin A1c % 8.1 %
== END 2022-09-17 10:01 | disposition home or self-care (01) ==
LOC: HO.LAB 10:00
PROVIDERS: PCP Physician Assistant; Visit Provider Physician Assistant
DX: Z13.89 Encounter for screening for other disorder (principal)
CPT/HCPCS: 36415; 83036

== ENCOUNTER 2022-12-18 09:05 | Outpatient (REF) | payer OTHER, SELFPAY ==
[2022-12-18 09:41] LABS: MANUAL DIFF FLAG NO
[2022-12-18 10:59] LABS: Basophils Percent Auto 0.5 % (0-2); Eosinophils Absolute Auto 0.1 X10*3/uL (0.0-0.4); Eosinophils Percent Auto 1.8 % (0-4); Hematocrit 39.2 % (37.0-47.0); Hemoglobin 12.3 g/dl (12.0-16.0); Imm Gran Abs Auto 0.02 X10*3/uL (0.00-0.03); Imm Gran Pct Auto 0.3 % (0.0-0.4); Lymphocytes Absolute Auto 2.4 X10*3/uL (1.2-4.9); Lymphocytes Percent Auto 38.2 % (20-40); Mean Corpuscular HGB Conc 31.4 g/dl (31.0-35.0); Mean Corpuscular Hemoglobin 26.1 pg (27.0-33.0); Mean Corpuscular Volume 83.2 fL (80.0-98.0); Mean Platelet Volume 10.6 fL (9.4-12.3); Monocytes Absolute Auto 0.5 X10*3/uL (0.1-1.2); Monocytes Percent Auto 7.7 % (2-11); Neutrophils Absolute Auto 3.2 x10*3/uL (2.0-8.3); Neutrophils Percent Auto 51.5 % (45-73); Platelet Count 253 X10*3/uL (160-400); Red Blood Count 4.71 X10*6/uL (4.20-5.50); Red Cell Distribution Width 13.7 % (11.0-16.0); White Blood Count 6.3 X10*3/uL (4.8-10.8)
[2022-12-18 11:21] LABS: Alanine Aminotransferase 26 U/L (0-31); Albumin Level 4.5 g/dL (3.5-5.0); Alkaline Phosphatase 65 U/L (39-117); Anion Gap 13 (12-20); Aspartate Amino Transferase 22 U/L (5-31); Bilirubin Total 0.6 mg/dL (0.0-1.0); Blood Urea Nitrogen 22 mg/dL (9-16); Calcium 9.8 mg/dL (8.4-10.2); Carbon Dioxide 27 mmol/L (22-29); Chloride 106 mmol/L (96-108); Cholesterol 175 mg/dL; Estimated Glomerular Filt Rate 55; Glucose Random 122 mg/dL (60-115); HDL Cholesterol 50 mg/dL; LDL Cholesterol Calculated 109 mg/dl; Potassium 4.4 mmol/L (3.3-5.1); Sodium 142 mmol/L (135-145); Total Protein 6.9 g/dL (6.5-8.0); Triglycerides 84 mg/dL
[2022-12-18 11:35] LABS: Estimated Average Glucose 146 mg/dL; Hemoglobin A1c % 6.7 %
[2022-12-18 11:39] LABS: TSH reflex Free T4 2.37 uIU/mL (0.32-4.0)
== END 2022-12-18 09:06 | disposition home or self-care (01) ==
LOC: HO.LAB 09:05
PROVIDERS: PCP Physician Assistant; Visit Provider Nurse Practitioner Family
DX: Z13.29 Encounter for screening for other suspected endocrine disorder (principal); Z13.0 Encounter for screening for diseases of the blood and blood-forming organs and certain disorders involving the immune mechanism; Z13.220 Encounter for screening for lipoid disorders; E11.42 Type 2 diabetes mellitus with diabetic polyneuropathy
CPT/HCPCS: 36415; 80053; 80061; 83036; 84443; 85025

== ENCOUNTER 2023-02-19 08:36 | Outpatient (REF) | payer OTHER, SELFPAY ==
--- NOTE | ~2023-02-19 | MM_ITS ---
EXAMINATION: MM SCREENING DIGITAL BREAST TOMOSYNTHESIS, BILATERAL CLINICAL INFORMATION: Screening. Asymptomatic. The lifetime risk of breast cancer based on the Tyrer-Cuzick Model is 6%. COMPARISON: Mammography: 01/29/2022, 11/23/2020, 06/20/2019 (diagnostic). TECHNIQUE: Digital breast tomosynthesis is performed in both the craniocaudal and mediolateral oblique views along with computer-aided detection (CAD). Synthesized 2D images are generated from the tomosynthesis. FINDINGS: There are scattered areas of fibroglandular density (ACR BI-RADS breast composition Category b). Parenchymal pattern is similar to prior exams and there is no developing density or architectural abnormality or significant mass. The axilla and skin contours are unremarkable. No abnormal calcifications on the left. Right breast has grouped punctate calcifications posterior upper outer quadrant, questionably increased versus superimposed digital processing artifact on the synthesized images. Patient will be recalled to further characterize with magnification views. MM/MM tomosynthesis screening BI IMPRESSION: Right: -Grouped calcifications posterior upper outer quadrant, questionably increased versus superimposed digital processing artifact on synthesized images. Left: -No mammographic evidence of malignancy. ASSESSMENT: BI-RADS 0: Incomplete - Need Additional Imaging Evaluation RECOMMENDATION: 1. Additional views right breast (magnification CC, magnification ML). 2. Radiology department staff will contact the patient for additional imaging. This patient's information was entered into a reminder system with a target due date for their next mammogram.
== END 2023-02-19 08:37 | disposition home or self-care (01) ==
LOC: HO.MAMMO 08:36
PROVIDERS: PCP Physician Assistant; Visit Provider Physician Assistant
DX: Z12.31 Encounter for screening mammogram for malignant neoplasm of breast (principal)
CPT/HCPCS: 77063; 77067

== ENCOUNTER 2023-03-11 13:55 | Outpatient (REF) | payer OTHER, SELFPAY ==
--- NOTE | ~2023-03-11 | MM_ITS ---
EXAMINATION: MM DIAGNOSTIC DIGITAL MAMMOGRAPHY, RIGHT CLINICAL INFORMATION: Recall from screening for calcifications posterior outer right breast questionably increased. COMPARISON: Prior mammography exams including most recent 02/19/2023 and prior diagnostic mammography 2019. TECHNIQUE: Digital mammography is performed in the following views: Magnification CC, magnification ML x2, magnification MLO. FINDINGS: There are scattered areas of fibroglandular density (ACR BI-RADS breast composition Category b). The additional magnification views show some grouped calcifications posterior upper outer breast which appear slightly increased and heterogeneous on the MLO view when compared with prior diagnostic exam. Suspect possible fibroadenomatous calcifications. However, stereotactic tissue sampling is recommended to confirm. Results are discussed with the patient at time of visit. Patient is in agreement for stereotactic sampling. Results called to medical office assistant (Diane) for RACHANA Burdick on 03/11/2023. MM/MM added views RT IMPRESSION: Heterogeneous calcifications posterior outer right breast, possibly fibroadenomatous change. ASSESSMENT: BI-RADS 4: Suspicious (subcategory 4A: Low suspicion for malignancy) RECOMMENDATION: Stereotactic sampling right breast calcifications. This patient's information was entered into a reminder system with a target due date for their next mammogram.
== END 2023-03-11 13:56 | disposition home or self-care (01) ==
LOC: HO.MAMMO 13:55
PROVIDERS: PCP Physician Assistant; Visit Provider Physician Assistant
DX: R92.1 Mammographic calcification found on diagnostic imaging of breast (principal)
CPT/HCPCS: 77065

== ENCOUNTER 2023-03-15 09:52 | Outpatient (REF) | payer OTHER, SELFPAY ==
--- NOTE | ~2023-03-15 | MM_ITS ---
EXAMINATION: STEREOTACTIC TOMOSYNTHESIS-GUIDED VACUUM-ASSISTED BREAST BIOPSY, RIGHT SPECIMEN RADIOGRAPH, RIGHT POST PROCEDURE DIGITAL MAMMOGRAM, RIGHT CLINICAL INFORMATION: Heterogeneous calcifications posterior outer right breast, possibly fibroadenomatous change. COMPARISON: Mammography 03/11/2023, 02/19/2023, 01/29/2022 TECHNIQUE/PROCEDURE: Informed consent was obtained from the patient after discussion of the benefits, risks, and alternatives to biopsy today. Patient appeared to understand. Gave opportunity for questions. Patient signed consent form. BIOPSY TABLE: [employer] Affirm Prone Biopsy System. LESION: Grouped heterogeneous calcifications posterior outer right breast. LOCAL ANESTHESIA: 10 mL carbonated 1% lidocaine; 10 mL 1% lidocaine with epinephrine. DERMATOTOMY: Single skin brenda dermatotomy performed. NEEDLE: [employer]Syn[employer]iva 9-gauge vacuum assisted core biopsy device. APPROACH: Lateral medial. TARGETING: Combination of digital breast tomosynthesis and stereotactic digital mammography used for targeting. CORES: 6. CLIP: GoIP [employer] T-shaped marker. SPECIMEN RADIOGRAPH: Specimen radiograph is taken in separate room using digital mammography. The index calcifications are in the excised cores. There are over 8 calcifications in the cores. POST PROCEDURE UNILATERAL DIGITAL MAMMOGRAM: The post biopsy mammogram is performed in separate room using separate digital mammography equipment from the biopsy procedure. CC and LM views are obtained. There are scattered areas of fibroglandular density (breast composition category: b). The clip marker is in position. The calcifications are markedly decreased at the biopsy site. No gross hematoma. The patient tolerated the procedure well. No immediate complications. Home instructions reviewed with the patient. Final pathology results are pending. MM/MM stereotactic biopsy RT IMPRESSION: 1. Digital tomosynthesis-guided core biopsy right breast with clip placement. 2. Specimen radiograph taken and post procedure mammogram. There is satisfactory positioning of the biopsy clip. 3. Final pathology results pending. An addendum report will be issued.
[2023-03-15] MEDS: Sodium Bicarbonate 8.4% 50 MEQ/50 ML VIAL SUBCUT (12:04)
[2023-03-15] MEDS: Lidocaine HCl 1%/Epi 1:100,000 10 ML VIAL SUBCUT (12:07)
== END 2023-03-15 09:53 | disposition home or self-care (01) ==
LOC: HO.MAMMO 09:52
PROVIDERS: PCP Physician Assistant; Visit Provider Surgery
DX: R92.1 Mammographic calcification found on diagnostic imaging of breast (principal)
CPT/HCPCS: 19081; 88305; 99202; A4648

== ENCOUNTER → 2023-03-29 10:59 | Outpatient (BNVA) | payer OTHER, SELFPAY | PROVIDERS: PCP Physician Assistant; Visit Provider Surgery | DX: R92.1 Mammographic calcification found on diagnostic imaging of breast (principal) | CPT/HCPCS: 99212 ==

== ENCOUNTER 2023-08-05 06:39 | Day surgery (SDC) | payer OTHER, SELFPAY ==
--- NOTE | 2023-08-04 13:00 | HO.ANESPROP2 ---
HPI - Anesthesia Eval Consult details Narrative: 53yo F for Upper Endoscopy s/p tubal PMFSH Active Problems Active Problems: All Active Problems (Updated 08/03/23 @ 07:36 by Eden Valdez, MERISSA) Constipation (Acute) Asthma (Acute) Bilateral foot pain (Acute) GERD (gastroesophageal reflux disease) (Acute) DMII (diabetes mellitus, type 2) (Acute) Obese (Acute) Plantar fasciitis (Acute) Annual physical exam (Acute) Dental implant pain (Acute) Iron deficiency anemia (Acute) Avascular necrosis of bone of right hip (Acute) Breast calcification, right (Acute) S/P gastric sleeve procedure (Acute) Hypercholesteremia (Acute) S/P total hip arthroplasty (Acute) Past Medical History Medical History Urinary incontinence HTN (hypertension) Hiatal hernia Depression Breast calcification, right Hypercholesteremia Snores COVID-19 vaccine series completed Personal history of COVID-19 IBS (irritable bowel syndrome) Neuropathy Family history of colon cancer Bacteremia due to Escherichia coli Type 2 diabetes mellitus Chronic, continuous use of opioids Chronic pain syndrome Family History Family History Father High cholesterol Mother Colon cancer Cancer Mental problem Maternal Grandmother Diabetes Maternal Grandfather Diabetes Paternal Grandmother No problems noted. Paternal Grandfather No problems noted. Other Substance abuse Family history of problems with anesthesia: Yes (Mother delayed emergence ) Surgical History Surgical History History of esophagogastroduodenoscopy (EGD) H/O colonoscopy History of cholecystectomy S/P gastric sleeve procedure Hx of cystoscopy History of knee replacement, total S/P total hip arthroplasty H/O abdominoplasty Kidney stones H/O removal of cyst History of reversal of tubal ligation History of bilateral tubal ligation Hx of tonsillectomy Fibroids History of Problems with Anesthesia: No Social History Social History Housing: House Are you a primary primary care physician to a significant other at home: No Do you presently have visiting nurse or other home services: No Alcohol intake: never Patient Tobacco Use Status: Never used Tobacco e-Cigarette/Vaping Use: Never Used Second Hand Smoke Exposure: Yes Use of substances other than those prescribed or required for medical reasons: No Are you DNR?: No Advance Directives: No Advance Directives Information Provided: Yes Patient : No service: No Current occupational status: employed 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 Cognitive needs: No Hearing needs: No Vision needs: No Meds Allergies Allergy/AdvReac Type Severity Reaction Status Date / Time sumatriptan [From Imitrex] Allergy Unknown Throat Verified 08/05/23 06:48 tightness Home Medications Medication Instructions Recorded Confirmed Last Taken Type zolpidem 10 mg tablet 10 mg PO BEDTIME PRN Insomnia 06/27/20 08/03/23 Unknown History fluticasone propionate 50 2 spray intranasal DAILY 10/20/21 08/03/23 Unknown History mcg/actuation nasal spray,suspension lorazepam 1 mg tablet 1 tab PO DAILY PRN Anxiety 10/20/21 08/03/23 Unknown History omeprazole magnesium 20 mg 20 mg PO DAILY 11/19/22 08/03/23 Unknown History tablet,delayed release (Prilosec OTC) loratadine 10 mg tablet 10 mg PO DAILY PRN Allergy Symptoms 08/03/23 08/03/23 Unknown History ondansetron 4 mg disintegrating 4 mg PO TID PRN nausea 08/03/23 08/03/23 Unknown History tablet Exam Exam Date and Time: August 04, 2023 1300 Assessment and Plan Assessment Anesthesia Assessment: Chart Reviewed Final Anesthetic Review Family History of Problems with Anesthesia: Yes (Mother delayed emergence ) History of Problems with Anesthesia: No
[2023-08-05 06:41] VITALS: BMI 31.2
[2023-08-05 07:04] VITALS: BP 129/65; PULSE 76; RESP 16; TEMP 35.8; O2SAT 96
[2023-08-05] MEDS: Lactated Ringers 1,000 ML 100 ML IVCONT (07:05)
--- NOTE | 2023-08-05 07:33 | P.CONAN_ITS ---
[facility] Active Problems Active Problems: All Active Problems (Updated 08/03/23 @ 07:36 by Eden Valdez RN) Constipation (Acute) Asthma (Acute) Bilateral foot pain (Acute) GERD (gastroesophageal reflux disease) (Acute) DMII (diabetes mellitus, type 2) (Acute) Obese (Acute) Plantar fasciitis (Acute) Annual physical exam (Acute) Dental implant pain (Acute) Iron deficiency anemia (Acute) Avascular necrosis of bone of right hip (Acute) Breast calcification, right (Acute) S/P gastric sleeve procedure (Acute) Hypercholesteremia (Acute) S/P total hip arthroplasty (Acute) Past Medical History Medical History Urinary incontinence HTN (hypertension) Hiatal hernia Depression Breast calcification, right Hypercholesteremia Snores COVID-19 vaccine series completed Personal history of COVID-19 IBS (irritable bowel syndrome) Neuropathy Family history of colon cancer Bacteremia due to Escherichia coli Type 2 diabetes mellitus Chronic, continuous use of opioids Chronic pain syndrome Functional capacity: independent ambulation Patient : No Family History Family History Father High cholesterol Mother Colon cancer Cancer Mental problem Maternal Grandmother Diabetes Maternal Grandfather Diabetes Paternal Grandmother No problems noted. Paternal Grandfather No problems noted. Other Substance abuse Family history of problems with anesthesia: Yes (Mother delayed emergence ) Surgical History Surgical History History of esophagogastroduodenoscopy (EGD) H/O colonoscopy History of cholecystectomy S/P gastric sleeve procedure Hx of cystoscopy History of knee replacement, total S/P total hip arthroplasty H/O abdominoplasty Kidney stones H/O removal of cyst History of reversal of tubal ligation History of bilateral tubal ligation Hx of tonsillectomy Fibroids History of Problems with Anesthesia: No Social History Social History Housing: House Are you a primary cattle care worker to a significant other at home: No Do you presently have visiting nurse or other home services: No Alcohol intake: never Patient Tobacco Use Status: Never used Tobacco e-Cigarette/Vaping Use: Never Used Second Hand Smoke Exposure: Yes Use of substances other than those prescribed or required for medical reasons: No Are you DNR?: No Advance Directives: No Advance Directives Information Provided: Yes service: No Current occupational status: employed 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 Cognitive needs: No Hearing needs: No Vision needs: No Meds Allergies Allergy/AdvReac Type Severity Reaction Status Date / Time sumatriptan [From Imitrex] Allergy Unknown Throat Verified 08/05/23 06:48 tightness Active Medications: Current Medications Albuterol Sulfate (Albuterol Sulfate (0.083%) 2.5 Mg/3 Ml Vial.Neb) 2.5 mg INHALE ONCE PRN PRN Reason: Shortness of Breath/Wheezing Lactated Ringer's (Lr) 1,000 mls @ 100 mls/hr IVCONT .Q10H JOE Last Admin: 08/05/23 07:05 Dose: 100 mls/hr Home Medications Medication Instructions Recorded Confirmed Last Taken Type zolpidem 10 mg tablet 10 mg PO BEDTIME PRN Insomnia 06/27/20 08/03/23 Unknown History fluticasone propionate 50 2 spray intranasal DAILY 10/20/21 08/03/23 Unknown History mcg/actuation nasal spray,suspension lorazepam 1 mg tablet 1 tab PO DAILY PRN Anxiety 10/20/21 08/03/23 Unknown History omeprazole magnesium 20 mg 20 mg PO DAILY 11/19/22 08/03/23 Unknown History tablet,delayed release (Prilosec OTC) loratadine 10 mg tablet 10 mg PO DAILY PRN Allergy Symptoms 08/03/23 08/03/23 Unknown History ondansetron 4 mg disintegrating 4 mg PO TID PRN nausea 08/03/23 08/03/23 Unknown History tablet Exam Exam Date and Time: August 05, 2023 0733 Height,Weight and Vital Signs: Height 5 ft 1 in Weight 74.843 kg Last Vital Signs Temp 96.5 F L 08/05/23 07:04 Pulse 76 08/05/23 07:04 Resp 16 08/05/23 07:04 BP 129/65 08/05/23 07:04 Pulse Ox 96 08/05/23 07:04 O2 Del Method Room Air 08/05/23 07:04 Airway Mallampati Class: III TM Dist: >3cm Heart: RRR Lungs: CTA Assessment and Plan Assessment Anesthesia Assessment: Anesthesia Plan Discussed Final Anesthetic Review Family History of Problems with Anesthesia: Yes (Mother delayed emergence ) History of Problems with Anesthesia: No ASA Class: III Final Preanesthetic Review: Meds/Allgs Chart Reviewed, Consent Obtained/Reviewed and Anes Risks/Benef Reviewed Patient Risk: Low Procedure Risk: Low Anesthetic Plan Anesthetic Plan: GA Disposition: Standard PACU
[2023-08-05 07:35] LABS: Glucose, Whole Blood 98 mg/dL (60-115)
[2023-08-05 08:03] VITALS: BP 103/78; PULSE 72; RESP 16; TEMP 36.3; O2SAT 95
--- NOTE | 2023-08-05 08:12 | PM.OP ---
Brief Operative Note Date of Service: 08/05/23 Pre-op diagnosis: Gerd Post-op diagnosis: other (Same) Procedure: EGD with biopsies Surgeon: Quan Kilpatrick MD Anesthesia: MAC Was an Payroll And Benefits Specialist used for this Procedure?: No Estimated blood loss (mL): 2.0 Pathology: other (A. Gastric antrum B. EG Junction at 33cm) Condition: stable Disposition: PACU
[2023-08-05 08:18] VITALS: BP 106/76; PULSE 72; RESP 18; TEMP 36.1; O2SAT 96
--- NOTE | 2023-08-05 08:22 | OP_ITS ---
DATE OF SERVICE: 08/05/2023 SURGEON: Quan Kilpatrick MD INDICATIONS: The patient presents for evaluation of gastroesophageal reflux and nausea. Full consent has been obtained from her for this, including risks of bleeding and perforation. PREOPERATIVE DIAGNOSIS: Gastroesophageal reflux and nausea. POSTOPERATIVE DIAGNOSIS: PROCEDURE PERFORMED: Esophagogastroduodenoscopy with biopsy. ESTIMATED BLOOD LOSS: COMPLICATIONS: ANESTHESIA: Monitored anesthesia care. ASSISTANTS: SPECIMENS: POSTOPERATIVE DIAGNOSES: Gastroesophageal reflux and nausea, rule out gastritis and H. pylori, normal gastric sleeve anastomosis, gastroesophageal reflux. DESCRIPTION OF PROCEDURE: The patient was placed in the left lateral decubitus position. The Olympus video gastroscope was passed in the posterior oropharynx and upper esophagus under direct vision. The scope was passed slowly into the distal esophagus. The gastroesophageal junction appeared at 33 cm. There was some very minimal irregularity, but no evidence of any esophagitis nor definitive Gregory mucosa. The scope easily entered into the stomach. There was no evidence of any esophageal stricture nor esophageal ring. There was a relatively small hiatal hernia. The proximal stomach was notable for a normal-appearing anastomosis from her previous gastric sleeve surgery. Therewas no sign of any ulceration, stricture, nor mass. The scope was advanced to the pylorus, and the duodenum was cannulated to the descending portion. The duodenum including the bulb appeared normal without mass or ulceration. The scope was withdrawn back in the stomach. The gastric antrum had some mild areas of erythema, but no erosions or ulceration. There was good peristalsis. Biopsies were obtained from the gastric antrum. The scope was retroflexed visualizing the proximal stomach carefully, which appeared normal, without any sign of mass or ulceration. The scope was straightened and withdrawn back to the esophagus. Biopsies were obtained at 33 cm. Proximal to this, the esophageal mucosa appeared normal. The scope was withdrawn from the patient. She tolerated the procedure well and was returned to recovery area in stable condition. IMPRESSION: 1. Normal appearing gastric sleeve anastomosis. 2. Minimal changes of gastritis. 3. Minimal changes of reflux. PLAN: The results of the biopsy will be checked. At this point, she does report that she is basically doing well on her daily Prilosec, although she does take an occasional second dose for some break through reflux as needed. Other than that, she seems to be doing well and will see me on a p.r.n. basis. She does have an appointment to follow up with her bariatric surgeon in [place] in August. She will be given copies of these records and a photo to bring with her at that time. She will see me on a p.r.n. basis. MD MARCO A Martinez/CHRISTINE / [phone] JANE
== END 2023-08-05 09:00 | disposition home or self-care (01) ==
PROVIDERS: PCP Physician Assistant; Visit Provider Internal Medicine
PROC: 0DJ08ZZ Inspection of Upper Intestinal Tract, Via Natural or Artificial Opening Endoscopic (ICD-10-PCS; CPT 43235; principal; 2023-08-05 07:30)
DX: K21.9 Gastro-esophageal reflux disease without esophagitis (principal); K29.50 Unspecified chronic gastritis without bleeding; K44.9 Diaphragmatic hernia without obstruction or gangrene; K58.0 Irritable bowel syndrome with diarrhea; Z98.84 Bariatric surgery status; Z98.0 Intestinal bypass and anastomosis status; I10 Essential (primary) hypertension; E11.9 Type 2 diabetes mellitus without complications; J45.909 Unspecified asthma, uncomplicated; Z79.84 Long term (current) use of oral hypoglycemic drugs; Z79.51 Long term (current) use of inhaled steroids; Z79.899 Other long term (current) drug therapy; Z90.49 Acquired absence of other specified parts of digestive tract; Z87.442 Personal history of urinary calculi; Z98.890 Other specified postprocedural states
CPT/HCPCS: 43239; 82947; 88305; 88342

== ENCOUNTER 2023-09-30 10:24 | Outpatient (AMB) | payer OTHER, SELFPAY ==
--- NOTE | 2023-09-30 10:36 | MHC.PC.OV ---
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 Accompanied by: Self / Same As Patient Allergies sumatriptan [From Imitrex] Allergy (Unknown, Verified 09/30/23 10:55) Throat tightness Medication List - Last Reconciled 09/30/23 by Jovanni Fine PA-C acetaminophen-caffeine 500-65 mg (Excedrin Tension Headache) 1 tab PO Q12H 7 days albuterol sulfate 90 mcg/actuation (Ventolin HFA) 2 puffs inhalation Q4-6H PRN albuterol sulfate 2.5 mg (3 mL) inhalation Q6H 30 days alcohol swabs (Alcohol Pads) 1 pad topical .once per day azithromycin For 250 mg dose pack: take 500 mg today (day 1), then 250 mg for 4 days (days 2-5) PO blood sugar diagnostic (FreeStyle Lite Strips) 1 strip miscellaneous DAILY 30 days blood-glucose meter (FreeStyle Emmett kit) As directed fluticasone propionate 50 mcg/actuation 2 sprays intranasal DAILY lactulose 20 grams (30 mL) PO BID PRN 15 days lancets (FreeStyle Lancets) As directed loratadine 10 mg PO DAILY PRN lorazepam 1 tab PO DAILY PRN metformin 1,000 mg PO DAILY omeprazole magnesium (Prilosec OTC) 20 mg PO DAILY ondansetron 4 mg PO TID PRN zolpidem 10 mg PO BEDTIME PRN Tobacco use date assessed: 09/30/23 Dental Screening Dental Screen Date: 09/30/23 Did you have a dental visit in the last 12 months?: Yes Did you have a dental problem in the last 6 months where you did not have access to dental care?: No Was dental information given to patient?: Patient has dentist HPI follow up HPI Details Patient is a 53-year-old female here today for? a follow-up visit. Patient has a past medical history of type 2 diabetes, obesity (status post bariatric surgery) ,avascular necrosis of bilateral hips. Concern--> reports having more frequent migraine headaches as of lately. 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 Has been using Excedrin without any significant long-lasting relief. .. Status post bariatric sleeve has lost significant amount of weight, did have some complications with nausea and up a gastric pain. She continues to follow bariatric program at [facility], continues to follow bariatric diet and is physically active at the gym several days a week. Her weight loss has not been as expected and she is interested in new G LP 1 for added benefit of further weight loss. . Type 2 diabetes:? Most recent A1c at goal, continues on metformin a 1000 daily. A1c today at 5.3. PLAN: Will plan to discontinue metformin and start G LP 1. .. ?Obesity: Has lost significant amount of weight, BMI still 31.2.has gotten surgery (gastric sleeve) at [facility] in [place]. Laboratory Tests 12/18/22 12/18/22 09/30/23 09:39 09:39 10:49 Hgb 12.3 Hgb A1c (Clinic) 5.9 Hemoglobin A1c % 6.7 Cholesterol 175 LDL Cholesterol, C alc 109 [facility] Medical History (Updated 10/04/23 @ 07:17 by Jovanni Fine PA-C) Urinary incontinence HTN (hypertension) Hiatal hernia Depression Breast calcification, right Hypercholesteremia Snores COVID-19 vaccine series completed Personal history of COVID-19 IBS (irritable bowel syndrome) Neuropathy Family history of colon cancer Bacteremia due to Escherichia coli Type 2 diabetes mellitus Chronic, continuous use of opioids Chronic pain syndrome Surgical History History of esophagogastroduodenoscopy (EGD) H/O colonoscopy History of cholecystectomy S/P gastric sleeve procedure Hx of cystoscopy History of knee replacement, total S/P total hip arthroplasty H/O abdominoplasty Kidney stones H/O removal of cyst History of reversal of tubal ligation History of bilateral tubal ligation Hx of tonsillectomy Fibroids Family History Father High cholesterol Mother Colon cancer Cancer Mental problem Maternal Grandmother Diabetes Maternal Grandfather Diabetes Paternal Grandmother No problems noted. Paternal Grandfather No problems noted. 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 Cognitive needs: No Hearing needs: No Vision needs: No Female Reproductive History Menstrual Age of Menarche: 13 Questionnaire PHQ-9 Over the last 2 weeks, how often have you been bothered by any of the following problems? 1. Little interest or pleasure in doing things: not at all 2. Feeling down, depressed, or hopeless: not at all 3. Trouble falling or staying asleep, or sleeping too much: not at all 4. Feeling tired or having little energy: not at all 5. Poor appetite or overeating: not at all 6. Feeling bad about yourself - or that you are a failure or have let yourself or your family down: not at all 7. Trouble concentrating on things, such as reading the newspaper or watching television: not at all 8. Moving or speaking so slowly that other people could have noticed. Or the opposite - being so fidgety or restless that you have been moving around a lot more than usual: not at all 9. Thoughts that you would be better off or of hurting yourself in some way: not at all Total score: 0 Depression Screening Interpretation: Negative Depression Screening Done: Yes 62277 - PHQ-9 Billing: Yes Source: Developed by Drs. Quan Cagle, Jessica Rios, Aristeo Fraga and colleagues, with an educational faye from [employer]. Thrive Questionnaire Date Thrive assessed: 09/30/23 I am a: Patient What is your living situation today?: I have a steady place to live Within the past 12 months, did the food you bought not last and you didn't have the money to get more?: Never true Within the past 12 months, did you worry whether your food would run out before you got money to buy more?: Never true Do you have trouble paying for medicines?: No Do you have trouble getting transportation to medical appointments?: No Do you have trouble paying your heating and electricity bill?: No Do you have trouble taking care of your child, family member or friend?: No Do you have trouble with day-to-day activities such as bathing, preparing meals, shopping, managing finances, etc.?: No Are you currently unemployed and looking for a job?: No Are you interested in more education?: No Please select the resources that you would like help with: None Currently or been in a relationship where the following occur: no concerns reported AUDIT C Alcohol Use Questionnaire (AUDIT-C) 1. How often do you have a drink containing alcohol?: Never 3. How often do you have six or more drinks on one occasion?: Never Total Score: 0 ANUM-7 AMB Questionnaire ANUM-7 Date ANUM - 7 assessed: 09/30/23 Feeling nervous, anxious, or on edge: 2 = More than half the days Not being able to stop or control worryin = Nearly every day Worrying too much about different things: 3 = Nearly every day Trouble relaxin = Nearly every day Being so restless that it is hard to sit still: 2 = More than half the days Becoming easily annoyed or irritable: 1 = Several days Feeling afraid as if something awful might happen: 2 = More than half the days Total ANUM-7 score (0-4 normal; 5-9 mild; 10-14 moderate; 15-21 severe): 16 Source: Developed by Drs. Quan Cagle, Jessica Rios, Aristeo Fraga and colleagues, with an educational faye from [employer]. ANUM-7 Assessment Billing ANUM-7 Assessment Tool: ANUM-7 Assessment 54307 ACT Questionnaire In the past 4 weeks, how much of the time did your asthma keep you from getting as much done at work, school or at home?: None of the time During the past 4 weeks, how often have you had shortness of breath?: Not at all During the past 4 weeks, how often did your asthma symptoms wake you up at night or earlier than usual in the morning?: Not at all During the past 4 weeks, how often have you had to use your rescue inhaler or nebulizer medication?: Not at all How would you rate your asthma control during the past 4 weeks?: Completely controlled ACT Interpretation: Negative Score: 25 Review of Systems Const Reports headache(s) Eyes Denies loss of vision ENT Denies vertigo, Denies dizziness, Reports headache(s) and Denies sore throat Card Denies chest pain, Denies leg edema and Denies lightheadedness Resp Denies cough, Denies hemoptysis and Denies wheezing GI Denies abdominal pain, Denies melena, Denies constipation, Denies diarrhea and Denies vomiting Denies urinary frequency, Denies dysuria and Denies urinary urgency Musc Denies arthralgias, Denies joint swelling, Denies numbness and Denies tingling Neuro Denies Abnormal speech present, Denies behavioral changes, Denies vertigo, Denies dizziness, Reports headache(s), Denies loss of vision, Denies memory loss, Denies numbness and Denies tingling Psych Denies anxiety, Denies behavioral changes, Denies depression, Denies memory loss and Denies panic attacks Reddy/Lymph Denies easy bleeding and Denies easy bruising Aller/Immun Denies wheezing Physical exam (Primary Care) Vital Signs: Last Vital Signs Pulse 70 09/30/23 10:40 Resp 17 09/30/23 10:40 BP 112/72 09/30/23 10:40 BMI result Body Mass Index 31.2 BMI Assessment/Plan discussion: High Tobacco/Smoking Status: Tobacco use Status Tobacco use date assessed 09/30/23 09/30/23 10:49 Patient Tobacco Use Status Never used Tobacco 09/30/23 10:36 e-Cigarette/Vaping Use Never Used 09/30/23 10:36 PHQ-9: PHQ-9 Score PHQ-9: Total score 0 09/30/23 10:58 Depression Screening Interpretation: Negative Thrive Assessment: Date of Thrive Assessment Date Thrive assessed 09/30/23 09/30/23 10:49 Currently or been in a relationship where the following occur: no concerns reported Const Other: Obese though weight loss noted General: healthy appearing, no acute distress, alert and awake Nutritional Appearance: well nourished Orientation/consciousness: oriented to person, oriented to place and oriented to time HENMT Ears: TM's normal bilaterally General nose exam: Normal nasal mucous membranes and turbinates present Eyes Conjunctivae: conjunctivae normal Sclerae: sclerae normal Pupils: Equal, round and reactive pupils present Neck Neck: Yes no lymphadenopathy and Yes no JVD Thyroid: Thyroid normal Carotids: no bruits Resp Effort & Inspection: normal respiratory effort and not tachypneic Auscultation: no crackles, no rales, no rhonchi and no wheezes Cardio Rate: regular rate Rhythm: regular rhythm Heart sounds: no murmurs and normal S1 and S2 GI Palpation (GI): Soft to palpation, nontender, no hepatomegaly and no splenomegaly Auscultation: normal bowel sounds Skin General skin exam: no rashes or lesions noted and dry skin Neuro General: oriented to person, oriented to place and oriented to time Cranial nerves: Yes Equal, round and reactive pupils present Speech: No Abnormal speech present Gait exam (Neuro): Normal gait present Motor exam (neuro): no tremor noted Extrem Right upper extremity: full ROM Left upper extremity: full ROM Right lower extremity: full ROM; no edema Left lower extremity: full ROM; no edema Psych Mental Status: mental status grossly normal Speech and movement: Normal speech and movement present Affect: normal affect Attitude: cooperative Thought process: Normal thought process present Results AMB Hemoglobin A1c AMB Hemoglobin A1c 5.9 % Last Edit by OMI Morfin on 09/30/23 10:50 Results Reviewed Results Reviewed: Laboratory Last Values Hgb A1c (Clinic) 5.9 % (4.0-6.0) 09/30/23 10:49 Assessment and Plan Assessment & Plan (1) DMII (diabetes mellitus, type 2): Code(s): E11.9 - Type 2 diabetes mellitus without complications Qualifiers: Diabetes mellitus complication detail: with polyneuropathy Diabetes mellitus complication status: with neurologic complications Diabetes mellitus alf insulin use: without alf use Qualified Code(s): E11.42 - Type 2 diabetes mellitus with diabetic polyneuropathy Plan: Patient's type 2 diabetes much better controlled since bariatric surgery. Will discontinue metformin. Will start G LP 1 for added benefit of continued weight loss. (2) Hypercholesteremia: Code(s): E78.00 - Pure hypercholesterolemia, unspecified Plan: Patient's most recent lipid panel showing appropriate total cholesterol and LDL. Patient currently diet controlled.. Goal LDL to remain below 100. (3) S/P gastric sleeve procedure: Comment: 10/01/22 [facility] Code(s): Z90.3 - Acquired absence of stomach [part of] Plan: Has lost nearly 50 lb since her bariatric sleeve procedure. She has been slow to progress on her weight loss and was advised to follow-up with her PCP about starting G LP 1 (4) Migraines: Code(s): G43.909 - Migraine, unspecified, not intractable, without status migrainosus Qualifiers: Intractability: not intractable Migraine type: unspecified Status migrainosus presence: without status migrainosus Qualified Code(s): G43.909 - Migraine, unspecified, not intractable, without status migrainosus Plan: Reports having more frequent migraines as of late. 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 She will like to try vitamin B2 and magnesium. If treatment does not work she is interested in Fioricet. (5) Asthma: Code(s): J45.909 - Unspecified asthma, uncomplicated Qualifiers: Asthma severity: mild Asthma persistence: intermittent Asthma complication type: uncomplicated Qualified Code(s): J45.20 - Mild intermittent asthma, uncomplicated Plan: Asthma well controlled with only some use of her albuterol inhaler. Otherwise denies any recent asthma exacerbations or nighttime awakenings with asthma symptoms. (6) Avascular necrosis of bone of right hip: Code(s): M87.051 - Idiopathic aseptic necrosis of right femur Plan: Pain has resolved since surgery and losing weight from bariatric surgery. (7) ANUM (generalized anxiety disorder): Code(s): F41.1 - Generalized anxiety disorder Plan: Patient's ANUM-7 score positive for moderate anxiety which has been existing condition for her. She does speak with a mental health therapist and a psychiatrist home provides her mental health medications. Orders: Orders AMB Hemoglobin A1c 09/30/23 E11.9 - Type 2 diabetes mellitus without complications Medications: New dulaglutide (Trulicity) 0.75 mg (0.5 mL) subcut QWEEK 4 weeks 2 mL 2RF E11.42 - Type 2 diabetes mellitus with diabetic polyneuropathy magnesium oxide 250 mg PO BID 30 days 60 tabs 0RF G43.909 - Migraine, unspecified, not intractable, without status migrainosus, R51.9 - Headache, unspecified riboflavin (vitamin B2) 50 mg PO DAILY 30 days 30 tabs 3RF G43.909 - Migraine, unspecified, not intractable, without status migrainosus, R51.9 - Headache, unspecified Changed From fluticasone propionate 50 mcg/actuation 2 sprays intranasal DAILY J32.9 - Chronic sinusitis, unspecified To fluticasone propionate 50 mcg/actuation 2 sprays intranasal DAILY 30 days 16 grams 2RF J32.9 - Chronic sinusitis, unspecified Discontinued lancets (FreeStyle Lancets) Discontinued Reason: Doctor's Order As directed 100 ea 3RF E11.9 - Type 2 diabetes mellitus without complications azithromycin Discontinued Reason: Doctor's Order For 250 mg dose pack: take 500 mg today (day 1), then 250 mg for 4 days (days 2-5) PO 6 tabs 0RF J32.9 - Chronic sinusitis, unspecified On Hold metformin Hold Comment: Doctor's Order 1,000 mg PO DAILY 90 tabs 0RF E11.42 - Type 2 diabetes mellitus with diabetic polyneuropathy Coding Level of Care Code Est Pt Level 4 (81124) Diagnoses Type 2 diabetes mellitus with diabetic polyneuropathy, without long-term current use of insulin E11.42 Diabetes mellitus complication detail: with polyneuropathy Diabetes mellitus complication status: with neurologic complications Diabetes mellitus alf insulin use: without continuous churn buttermaker use Hypercholesteremia E78.00 S/P gastric sleeve procedure Z90.3 Migraine without status migrainosus, not intractable, unspecified migraine type G43.909 Intractability: not intractable Migraine type: unspecified Status migrainosus presence: without status migrainosus Mild intermittent asthma without complication J45.20 Asthma severity: mild Asthma persistence: intermittent Asthma complication type: uncomplicated Avascular necrosis of bone of right hip M87.051 ANUM (generalized anxiety disorder) F41.1 Additional Codes ANUM-7 Assessment Billing - ANUM-7 Assessment Tool: ANUM-7 Assessment [id number] ([id number])
[2023-09-30 10:40] VITALS: BP 112/72; PULSE 70; RESP 17; BMI 31.2
== END 2023-09-30 11:23 | disposition home or self-care (01) ==
PROVIDERS: PCP Physician Assistant; Visit Provider Physician Assistant
DX: E11.9 Type 2 diabetes mellitus without complications (principal)
CPT/HCPCS: 83036; 99214

== ENCOUNTER 2023-11-24 09:07 | Outpatient (AMB) | payer OTHER, SELFPAY ==
[2023-11-24 09:12] VITALS: BP 110/72; PULSE 70; RESP 17; O2SAT 96; BMI 31.1
--- NOTE | 2023-11-24 09:12 | A.OFFPC_ITS ---
Vital Signs 11/24/23 09:12 Height 5 ft 1 in Weight 164 lb 6 oz BMI 31.1 BP 110/72 Blood Pressure Location Lt brachial Position Sitting Respiration 17 Pulse 70 Pulse Source Pulse Oximeter Pulse Oximetry (%) 96 Oxygen Delivery Method Room Air Intake Visit Reasons: f/u weight check Noodle Maker Required: No Accompanied by: Self / Same As Patient Allergies sumatriptan [From Imitrex] Allergy (Unknown, Verified 11/24/23 09:39) Throat tightness Medication List - Last Reconciled 11/24/23 by Jovanni Fine PA-C acetaminophen-caffeine 500-65 mg (Excedrin Tension Headache) 1 tab PO Q12H 7 days albuterol sulfate 90 mcg/actuation (Ventolin HFA) 2 puffs inhalation Q4-6H PRN albuterol sulfate 2.5 mg (3 mL) inhalation Q6H 30 days alcohol swabs (Alcohol Pads) 1 pad topical .once per day blood sugar diagnostic (FreeStyle Lite Strips) 1 strip miscellaneous DAILY 30 days blood-glucose meter (FreeStyle [place] kit) As directed dulaglutide (Trulicity) 0.75 mg (0.5 mL) subcut QWEEK 4 weeks fluticasone propionate 50 mcg/actuation 2 sprays intranasal DAILY 30 days lactulose 20 grams (30 mL) PO BID PRN 15 days loratadine 10 mg PO DAILY PRN lorazepam 1 tab PO DAILY PRN magnesium oxide 250 mg PO BID 30 days metformin 1,000 mg PO DAILY omeprazole magnesium (Prilosec OTC) 20 mg PO DAILY ondansetron 4 mg PO TID PRN riboflavin (vitamin B2) 50 mg PO DAILY 30 days zolpidem 10 mg PO BEDTIME PRN Tobacco use date assessed: 09/30/23 Dental Screening Dental Screen Date: 11/24/23 Did you have a dental visit in the last 12 months?: Yes Did you have a dental problem in the last 6 months where you did not have access to dental care?: No Was dental information given to patient?: Patient has dentist HPI f/u weight check HPI Details Patient is a 53-year-old female here today for? a follow-up visit. Patient has a past medical history of type 2 diabetes, obesity (status post bariatric surgery) ,avascular necrosis of bilateral hips. Concern--> plateauing weight. .. Status post bariatric sleeve has lost significant amount of weight, did have some complications with nausea and up a gastric pain. She continues to follow bariatric program at [facility], continues to follow bariatric diet and is physically active at the gym several days a week. Has started Trulicity though did not notice any weight loss. She is willing to increase dose for added weight loss. We did discuss trying to increase intensity of workouts . Type 2 diabetes:? Most recent A1c at goal, continues on metformin a 1000 daily. A1c today at 5.3. Advised to discontinue metformin for now PLAN: Will increase the dose of Trulicity .. ?Obesity: Has lost significant amount of weight, BMI still 31.2.has gotten surgery (gastric sleeve) at [facility] in [place]. [facility] Medical History (Updated 10/04/23 @ 07:17 by Jovanni Fine PA-C) Urinary incontinence HTN (hypertension) Hiatal hernia Depression Breast calcification, right Hypercholesteremia Snores COVID-19 vaccine series completed Personal history of COVID-19 IBS (irritable bowel syndrome) Neuropathy Family history of colon cancer Bacteremia due to Escherichia coli Type 2 diabetes mellitus Chronic, continuous use of opioids Chronic pain syndrome Surgical History History of esophagogastroduodenoscopy (EGD) H/O colonoscopy History of cholecystectomy S/P gastric sleeve procedure Hx of cystoscopy History of knee replacement, total S/P total hip arthroplasty H/O abdominoplasty Kidney stones H/O removal of cyst History of reversal of tubal ligation History of bilateral tubal ligation Hx of tonsillectomy Fibroids Family History Father High cholesterol Mother Colon cancer Cancer Mental problem Maternal Grandmother Diabetes Maternal Grandfather Diabetes Paternal Grandmother No problems noted. Paternal Grandfather No problems noted. 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 Cognitive needs: No Hearing needs: No Vision needs: No Female Reproductive History Menstrual Age of Menarche: 13 Questionnaire Thrive Questionnaire Date Thrive assessed: 09/30/23 ANUM-7 AMB Questionnaire ANUM-7 Date ANUM - 7 assessed: 09/30/23 Source: Developed by Drs. Quan Cagle, Jessica Rios, Aristeo Fraga and colleagues, with an educational faye from [employer]. Review of Systems Const Denies headache(s) Eyes Denies loss of vision ENT Denies vertigo, Denies dizziness, Denies headache(s) and Denies sore throat Card Denies chest pain, Denies leg edema and Denies lightheadedness Resp Denies cough, Denies hemoptysis and Denies wheezing GI Denies abdominal pain, Denies melena, Denies constipation, Denies diarrhea and Denies vomiting Denies urinary frequency, Denies dysuria and Denies urinary urgency Musc Denies arthralgias, Denies joint swelling, Denies numbness and Denies tingling Neuro Denies Abnormal speech present, Denies behavioral changes, Denies vertigo, Denies dizziness, Denies headache(s), Denies loss of vision, Denies memory loss, Denies numbness and Denies tingling Psych Denies anxiety, Denies behavioral changes, Denies depression, Denies memory loss and Denies panic attacks Reddy/Lymph Denies easy bleeding and Denies easy bruising Aller/Immun Denies wheezing Physical exam (Primary Care) Vital Signs: Last Vital Signs Pulse 70 11/24/23 09:12 Resp 17 11/24/23 09:12 BP 110/72 11/24/23 09:12 Pulse Ox 96 11/24/23 09:12 Oxygen Delivery Method Room Air 11/24/23 09:12 BMI result Body Mass Index 31.1 Tobacco/Smoking Status: Tobacco use Status Tobacco use date assessed 09/30/23 11/24/23 09:12 Patient Tobacco Use Status Never used Tobacco 11/24/23 09:12 e-Cigarette/Vaping Use Never Used 11/24/23 09:12 Thrive Assessment: Date of Thrive Assessment Date Thrive assessed 09/30/23 11/24/23 09:12 Const General: healthy appearing, no acute distress, alert and awake Nutritional Appearance: well nourished Orientation/consciousness: oriented to person, oriented to place and oriented to time HENMT Ears: TM's normal bilaterally General nose exam: Normal nasal mucous membranes and turbinates present Eyes Conjunctivae: conjunctivae normal Sclerae: sclerae normal Pupils: Equal, round and reactive pupils present Neck Neck: Yes no lymphadenopathy and Yes no JVD Thyroid: Thyroid normal Carotids: no bruits Resp Effort & Inspection: normal respiratory effort and not tachypneic Auscultation: no crackles, no rales, no rhonchi and no wheezes Cardio Rate: regular rate Rhythm: regular rhythm Heart sounds: no murmurs and normal S1 and S2 GI Palpation (GI): Soft to palpation, nontender, no hepatomegaly and no splenome hola Auscultation: normal bowel sounds Skin General skin exam: no rashes or lesions noted and dry skin Neuro General: oriented to person, oriented to place and oriented to time Cranial nerves: Yes Equal, round and reactive pupils present Speech: No Abnormal speech present Gait exam (Neuro): Normal gait present Motor exam (neuro): no tremor noted Extrem Right upper extremity: full ROM Left upper extremity: full ROM Right lower extremity: full ROM; no edema Left lower extremity: full ROM; no edema Psych Mental Status: mental status grossly normal Speech and movement: Normal speech and movement present Affect: normal affect Attitude: cooperative Thought process: Normal thought process present Assessment and Plan Assessment & Plan (1) DMII (diabetes mellitus, type 2): Code(s): E11.9 - Type 2 diabetes mellitus without complications Qualifiers: Diabetes mellitus senior living insulin use: without senior living use Diabetes mellitus complication status: with neurologic complications Diabetes mellitus complication detail: with polyneuropathy Qualified Code(s): E11.42 - Type 2 diabetes mellitus with diabetic polyneuropathy Plan: Patient's type 2 diabetes much better controlled since bariatric surgery. Advised discontinue metformin. She continues on Trulicity 0.75 with only minimal side effects. She has not noted much weight loss. Will increase dose of Trulicity to 3 mg weekly for added benefit weight loss. (2) Hypercholesteremia: Code(s): E78.00 - Pure hypercholesterolemia, unspecified Plan: Patient's most recent lipid panel showing appropriate total cholesterol and LDL. Patient currently diet controlled.. Goal LDL to remain below 100. (3) S/P gastric sleeve procedure: Comment: 10/01/22 [facility] Code(s): Z90.3 - Acquired absence of stomach [part of] Plan: Has lost nearly 50 lb since her bariatric sleeve procedure. She has been slow to progress on her weight loss and was advised to follow-up with her PCP about starting G LP 1. Thus we started initial dose of Trulicity though has not noted much weight loss. Will like to increase her dose of Trulicity (4) Migraines: Code(s): G43.909 - Migraine, unspecified, not intractable, without status migrainosus Qualifiers: Migraine type: unspecified Status migrainosus presence: without status migrainosus Intractability: not intractable Qualified Code(s): G43.909 - Migraine, unspecified, not intractable, without status migrainosus Plan: Reports having more frequent migraines as of late. 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 She will like to try vitamin B2 and magnesium. If treatment does not work she is interested in Fioricet. Orders: Orders IRON PROFILE Today D50.9 - Iron deficiency anemia, unspecified, E78.00 - Pure hypercholesterolemia, unspecified Lipid Panel Today E78.00 - Pure hypercholesterolemia, unspecified Comprehensive [address]. Panel Fast Today E11.42 - Type 2 diabetes mellitus with diabetic polyneuropathy Complete Blood Count no Diff Today E78.00 - Pure hypercholesterolemia, unspecified TSH reflex Free T4 Today Z90.3 - Acquired absence of stomach [part of] Medications: New dulaglutide (Trulicity) 3 mg (0.5 mL) subcut QWEEK 4 weeks 2 mL 3RF E11.42 - Type 2 diabetes mellitus with diabetic polyneuropathy Refilled riboflavin (vitamin B2) 50 mg PO DAILY 30 days 30 tabs 3RF G43.909 - Migraine, unspecified, not intractable, without status migrainosus, R51.9 - Headache, unspecified magnesium oxide 250 mg PO BID 30 days 60 tabs 3RF G43.909 - Migraine, unspecified, not intractable, without status migrainosus, R51.9 - Headache, unspecified Discontinued dulaglutide (Trulicity) Discontinued Reason: Doctor's Order 0.75 mg (0.5 mL) subcut QWEEK 4 weeks 2 mL 2RF E11.42 - Type 2 diabetes mellitus with diabetic polyneuropathy Coding Level of Care Code Est Pt Level 4 (07868) Diagnoses Type 2 diabetes mellitus with diabetic polyneuropathy, without long-term current use of insulin E11.42 Diabetes mellitus senior living insulin use: without senior living use Diabetes mellitus complication status: with neurologic complications Diabetes mellitus complication detail: with polyneuropathy Hypercholesteremia E78.00 S/P gastric sleeve procedure Z90.3 Migraine without status migrainosus, not intractable, unspecified migraine type G43.909 Migraine type: unspecified Status migrainosus presence: without status migrainosus Intractability: not intractable
== END 2023-11-24 09:59 | disposition home or self-care (01) ==
PROVIDERS: PCP Physician Assistant; Visit Provider Physician Assistant
DX: E11.42 Type 2 diabetes mellitus with diabetic polyneuropathy (principal); E78.00 Pure hypercholesterolemia, unspecified; Z90.3 Acquired absence of stomach [part of]; G43.909 Migraine, unspecified, not intractable, without status migrainosus
CPT/HCPCS: 99214

== ENCOUNTER 2023-11-24 10:07 | Outpatient (REF) | payer OTHER, SELFPAY ==
[2023-11-24 10:59] LABS: Hematocrit 39.3 % (37.0-47.0); Hemoglobin 12.9 g/dl (12.0-16.0); Mean Corpuscular HGB Conc 32.8 g/dl (31.0-35.0); Mean Corpuscular Hemoglobin 28.8 pg (27.0-33.0); Mean Corpuscular Volume 87.7 fL (80.0-98.0); Mean Platelet Volume 9.3 fL (9.4-12.3); Platelet Count 252 X10*3/uL (160-400); Red Blood Count 4.48 X10*6/uL (4.20-5.50); White Blood Count 5.9 X10*3/uL (4.8-10.8)
[2023-11-24 12:06] LABS: Alanine Aminotransferase 14 U/L (0-31); Albumin Level 4.4 g/dL (3.5-5.0); Alkaline Phosphatase 63 U/L (39-117); Anion Gap 9 (12-20); Aspartate Amino Transferase 18 U/L (5-31); Bilirubin Total 0.5 mg/dL (0.0-1.0); Blood Urea Nitrogen 25 mg/dL (9-16); Calcium 10.2 mg/dL (8.4-10.2); Carbon Dioxide 30 mmol/L (22-29); Chloride 105 mmol/L (96-108); Cholesterol 197 mg/dL (<200); Estimated Glomerular Filt Rate > 60; Glucose Fasting 78 mg/dL (60-99); HDL Cholesterol 64 mg/dL (>40); Iron 95 mcg/dL (30-160); LDL Cholesterol Calculated 106 mg/dL (<100); Percent Iron Saturation 27 % (15-50); Potassium 4.2 mmol/L (3.3-5.1); Sodium 140 mmol/L (135-145); TSH reflex Free T4 2.47 uIU/mL (0.32-4.0); Total Iron Binding Capacity 348 mcg/dL (228-428); Total Protein 7.5 g/dL (6.5-8.0); Triglycerides 137 mg/dL (<150); Unsaturated Iron Binding 253 ug/dL; Vitamin D 25-OH Total 40.3 ng/mL (>30)
[2023-11-24 15:30] LABS: Folate > 20.0 ng/mL (> or = 4.0); Vitamin B12 863 pg/mL (200-900)
== END 2023-11-24 10:08 | disposition home or self-care (01) ==
LOC: HO.LAB 10:07
PROVIDERS: PCP Physician Assistant; Visit Provider Physician Assistant
DX: E11.42 Type 2 diabetes mellitus with diabetic polyneuropathy (principal); D50.9 Iron deficiency anemia, unspecified; E78.00 Pure hypercholesterolemia, unspecified; E53.8 Deficiency of other specified B group vitamins; Z90.3 Acquired absence of stomach [part of]
CPT/HCPCS: 36415; 80053; 80061; 82306; 82607; 82746; 83540; 84443; 85027

== ENCOUNTER 2024-02-25 08:45 | Outpatient (REF) | payer OTHER, SELFPAY ==
--- NOTE | ~2024-02-25 | MM_ITS ---
EXAMINATION: MM SCREENING DIGITAL BREAST TOMOSYNTHESIS, BILATERAL CLINICAL INFORMATION: Screening. Asymptomatic. COMPARISON: Mammography: This study is compared with prior exams dating back to 2018. TECHNIQUE: Digital breast tomosynthesis is performed in both the craniocaudal and mediolateral oblique views along with computer-aided detection (CAD). Synthesized 2D images are generated from the tomosynthesis. FINDINGS: There are scattered areas of fibroglandular density (ACR BI-RADS breast composition Category b). There are no significant masses, abnormal calcifications, or other abnormalities. There is tissue marker present in the right breast from prior benign percutaneous biopsy. MM/MM tomosynthesis screening BI IMPRESSION: No mammographic evidence of malignancy. ASSESSMENT: BI-RADS BI-RADS 1 - Negative RECOMMENDATION: Routine annual mammography screening. 1 year F/U This examination should not preclude the clinical evaluation of a suspicious palpable abnormality. This patient's information was entered into a reminder system with a target due date for their next mammogram.
== END 2024-02-25 08:46 | disposition home or self-care (01) ==
LOC: HO.MAMMO 08:45
PROVIDERS: PCP Physician Assistant; Visit Provider Physician Assistant
DX: Z12.31 Encounter for screening mammogram for malignant neoplasm of breast (principal)
CPT/HCPCS: 77063; 77067

== ENCOUNTER → 2024-02-25 08:45 | Outpatient (BNV) | payer OTHER, SELFPAY | PROVIDERS: PCP Physician Assistant; Visit Provider Radiology Diagnostic Radiology | DX: Z12.31 Encounter for screening mammogram for malignant neoplasm of breast (principal) | CPT/HCPCS: 77063; 77067 ==

== ENCOUNTER 2024-02-28 10:24 | Outpatient (AMB) | payer OTHER, SELFPAY ==
[2024-02-28 10:44] VITALS: BP 114/72; PULSE 72; O2SAT 99; BMI 29.0
--- NOTE | 2024-02-28 10:44 | MHC.PC.OV ---
Vital Signs 02/28/24 10:44 Height 5 ft 1 in Weight 153 lb 8 oz BMI 29.0 BP 114/72 Blood Pressure Location Lt brachial Position Sitting Pulse 72 Pulse Source Pulse Oximeter Pulse Oximetry (%) 99 Oxygen Delivery Method Room Air Intake Visit Reasons: Annual Exam Intake Note: Patient is here today for a physical. 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 Accompanied by: Self / Same As Patient Allergies sumatriptan [From Imitrex] Allergy (Unknown, Verified 02/28/24 10:59) Throat tightness Medication List - Last Reconciled 02/28/24 by Jovanni Fine PA-C acetaminophen-caffeine 500-65 mg (Excedrin Tension Headache) 1 tab PO Q12H 7 days albuterol sulfate 90 mcg/actuation (Ventolin HFA) 2 puffs inhalation Q4-6H PRN albuterol sulfate 2.5 mg (3 mL) inhalation Q6H 30 days alcohol swabs (Alcohol Pads) 1 pad topical .once per day blood sugar diagnostic (FreeStyle Lite Strips) 1 strip miscellaneous DAILY 30 days blood-glucose meter (FreeStyle [place] kit) As directed fluticasone propionate 50 mcg/actuation 2 sprays intranasal DAILY 30 days lactulose 20 grams (30 mL) PO BID PRN 15 days loratadine 10 mg PO DAILY PRN lorazepam 1 tab PO DAILY PRN magnesium oxide 250 mg PO BID 30 days metformin 1,000 mg PO DAILY omeprazole magnesium (Prilosec OTC) 20 mg PO DAILY ondansetron 4 mg PO TID PRN riboflavin (vitamin B2) 50 mg PO DAILY 30 days tirzepatide (Mounjaro) 10 mg (0.5 mL) subcut QWEEK 4 weeks zolpidem 10 mg PO BEDTIME PRN Tobacco use date assessed: 09/30/23 Dental Screening Dental Screen Date: 11/24/23 HPI Annual Exam HPI Details Patient is a 53-year-old female here today for? a follow-up visit. Patient has a past medical history of type 2 diabetes, obesity (status post bariatric surgery) ,avascular necrosis of bilateral hips. Concern--> reports having polyarthralgia that has worsened over the last 2 months. She reports her joint pains worsened at night when she is still. She has been taking Tylenol without much relief. Of note does have a history of a left total knee replacement and left hip osteonecrosis. .. Status post bariatric sleeve has lost significant amount of weight, did have some complications with nausea and up a gastric pain. She continues to follow bariatric program at [facility], continues to follow bariatric diet and is physically active at the gym several days a week. Has started Trulicity though did not notice any weight loss. She has transitioned to a new GLP 1 (Mounjaro) and has low-dose another 10 lb weight loss. She has a goal weight of 140 lbas. . Type 2 diabetes:? Most recent A1c at goal, continues on metformin a 1000 daily. A1c today at 5.4. Advised to discontinue metformin for now .. ?Obesity: Has lost weight since last office visit, now on new GLP 1, BMI now 29. .has gotten surgery (gastric sleeve) at [facility] in [place]. Colonoscopy : Dr Kilpatrick - colonoscopy done 2021- repeat 5 years. Mammogram: Recently had mammogram, awaiting results. 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 [facility] Medical History (Updated 02/28/24 @ 11:12 by Jovanni Fine PA-C) Urinary incontinence HTN (hypertension) Hiatal hernia Depression Breast calcification, right Hypercholesteremia Snores COVID-19 vaccine series completed Personal history of COVID-19 IBS (irritable bowel syndrome) Neuropathy Family history of colon cancer Bacteremia due to Escherichia coli Type 2 diabetes mellitus Chronic, continuous use of opioids Chronic pain syndrome Surgical History History of esophagogastroduodenoscopy (EGD) H/O colonoscopy History of cholecystectomy S/P gastric sleeve procedure Hx of cystoscopy History of knee replacement, total S/P total hip arthroplasty H/O abdominoplasty Kidney stones H/O removal of cyst History of reversal of tubal ligation History of bilateral tubal ligation Hx of tonsillectomy Fibroids Family History Father High cholesterol Mother Colon cancer Cancer Mental problem Maternal Grandmother Diabetes Maternal Grandfather Diabetes Paternal Grandmother No problems noted. Paternal Grandfather No problems noted. 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 Cognitive needs: No Hearing needs: No Vision needs: No Female Reproductive History Menstrual Age of Menarche: 13 Questionnaire Thrive Questionnaire Date Thrive assessed: 09/30/23 ANUM-7 AMB Questionnaire ANUM-7 Date ANUM - 7 assessed: 09/30/23 Source: Developed by Drs. Quan Cagle, Jessica Rios, Aristeo Fraga and colleagues, with an educational faye from [employer]. Review of Systems Const Denies body aches, Denies chills, Denies excessive sweating, Denies fatigue, Denies fever(s) and Denies headache(s) Eyes Denies blurry vision ENT Denies dysphagia, Denies vertigo, Denies dizziness, Denies headache(s), Denies hearing loss and Denies tinnitus Card Denies chest pain, Denies chest pain with activity, Denies syncope, Denies irregular heart rhythm and Denies dyspnea Resp Denies chest congestion, Denies cough, Denies hemoptysis, Denies dyspnea and Denies wheezing GI Denies abdominal pain, Denies melena, Denies hematochezia, Denies coffee ground emesis, Denies dysphagia, Denies diarrhea, Denies nausea and Denies vomiting Denies urinary frequency, Denies dysuria, Denies urinary hesitancy and Denies urinary urgency Musc Reports back pain, Reports arthralgias, Denies limited range of motion, Denies muscle cramps and Denies muscle weakness Skin/Breast Denies rash and Denies skin ulcer Neuro Denies Abnormal speech present, Denies confusion, Denies vertigo, Denies dizziness, Denies syncope, Denies headache(s), Denies memory loss and Denies seizure-like activity Psych Denies anxiety, Denies confusion, Denies depression, Denies memory loss, Denies panic attacks and Denies paranoia Endo Denies excessive sweating, Denies fatigue, Denies flushing, Denies polydipsia and Denies polyuria Aller/Immun Denies wheezing Physical exam (Primary Care) Vital Signs: Last Vital Signs Pulse 72 02/28/24 10:44 BP 114/72 02/28/24 10:44 Pulse Ox 99 02/28/24 10:44 Oxygen Delivery Method Room Air 02/28/24 10:44 BMI result Body Mass Index 29.0 Tobacco/Smoking Status: Tobacco use Status Tobacco use date assessed 09/30/23 02/28/24 10:45 Patient Tobacco Use Status Never used Tobacco 02/28/24 10:45 e-Cigarette/Vaping Use Never Used 02/28/24 10:45 Thrive Assessment: Date of Thrive Assessment Date Thrive assessed 09/30/23 02/28/24 10:45 Const General: cooperative, comfortable, no acute distress, alert and awake; No confusion Orientation/consciousness: oriented to person, oriented to place, patient oriented x3 and No confusion HENMT Head: Yes normocephalic Ears: external ears normal and TM's normal bilaterally Face and sinus: No sinus tenderness Mouth: Normal oral and palatal mucosa present and tongue normal Teeth and gingiva: dentition normal and gingiva normal Throat: Yes posterior oropharynx normal, Yes tonsils normal and Yes uvula midline Eyes Conjunctivae: conjunctivae normal Sclerae: sclerae normal Pupils: Equal, round and reactive pupils present EOM: EOMs intact bilaterally Direct Ophthalmoscopy: No no photophobia Neck Neck: Yes no lymphadenopathy, No tender and Yes no JVD Thyroid: Thyroid normal Carotids: no bruits Chest Chest palpation & inspection: no tenderness Resp Effort & Inspection: normal respiratory effort, no audible wheezes, not labored and no stridor Auscultation: no crackles, no rales, no rhonchi and no wheezes Cardio Jugular venous distension: no JVD Rate: regular rate, not bradycardic and not tachycardic Rhythm: regular rhythm Bruits: no carotid bruits Peripheral pulses: Peripheral pulses 2+ throughout GI Inspection: Yes normal to inspection, No abdominal wall ecchymosis and No visible herniation Palpation (GI): Soft to palpation, nontender, no guarding, not rigid and No hepatosplenomegaly present Auscultation: normoactive bowel sounds General: Yes no CVA tenderness Back/Spine/Pelvis Back: no CVA tenderness and No back tenderness Cervical Spine: cervical ROM normal Thoracic/Lumbar Spine: thoracic and lumbar spine normal to inspection, straight leg raise negative bilaterally, No thoraco-lumbar ROM limited and No lumbar spinal tenderness Skin Lesions: no lesions Rashes: no rashes Wounds: no wounds Neuro General: oriented to person, oriented to place, patient oriented x3, CN's II-XI intact bilaterally and No confusion Cranial nerves: Yes Equal, round and reactive pupils present and Yes Normal accommodation reflex present Cognition (Neuro): normal cognition Speech: No Abnormal speech present Gait exam (Neuro): Normal gait present Motor exam (neuro): 5/5 motor strength present throughout Extrem Right upper extremity: full ROM; no cyanosis Left upper extremity: full ROM; no cyanosis Right lower extremity: no edema Left lower extremity: no edema Psych Appearance: grossly normal Mental Status: mental status grossly normal Affect: normal affect Attitude: cooperative Thought process: Normal thought process present Results AMB Hemoglobin A1c AMB Hemoglobin A1c 5.4 % Last Edit by OMI Morfin on 02/28/24 11:10 Assessment and Plan Assessment & Plan (1) DMII (diabetes mellitus, type 2): Code(s): E11.9 - Type 2 diabetes mellitus without complications Qualifiers: Diabetes mellitus technical support analyst insulin use: without custodial use Diabetes mellitus complication status: with neurologic complications Diabetes mellitus complication detail: with polyneuropathy Qualified Code(s): E11.42 - Type 2 diabetes mellitus with diabetic polyneuropathy Plan: Patient's type 2 diabetes much better controlled since bariatric surgery. Advised discontinue metformin. She continues now on Mounjaro. We have noted a 12 lb weight loss since last office visit (2) Hypercholesteremia: Code(s): E78.00 - Pure hypercholesterolemia, unspecified Plan: Patient's most recent lipid panel showing appropriate total cholesterol and LDL. Patient currently diet controlled.. Goal LDL to remain below 100. (3) S/P gastric sleeve procedure: Comment: 10/01/22 [facility] Code(s): Z90.3 - Acquired absence of stomach [part of] Plan: As per HPI (4) Polyarthralgia: Code(s): M25.50 - Pain in unspecified joint Plan: Reports worsening polyarthralgia over last few months. Will test for rheumatoid. Does have significant osteoarthritis and osteonecrosis of her knees and hips. Advised on nonweightbearing exercises. She will look into using topical NSAIDs as she does have history of gastric sleeve. Orders: Orders Rheumatoid Factor Today M25.50 - Pain in unspecified joint ESTEFANÍA Reflex Titer and Pattern Today M25.50 - Pain in unspecified joint Comprehensive [place]. Panel Fast Today E11.42 - Type 2 diabetes mellitus with diabetic polyneuropathy Lipid Panel Today E78.00 - Pure hypercholesterolemia, unspecified Complete Blood Count no Diff Today E78.00 - Pure hypercholesterolemia, unspecified AMB Hemoglobin A1c Today E11.42 - Type 2 diabetes mellitus with diabetic polyneuropathy Cyclic Citrullinated Peptide Today M25.50 - Pain in unspecified joint Medications: On Hold metformin Hold Comment: Doctor's Order 1,000 mg PO DAILY 90 tabs 0RF E11.42 - Type 2 diabetes mellitus with diabetic polyneuropathy Patient Instructions: Goal: A1c to remain below 6.5 Barriers: Adherence to physical activity and healthy eating habits. Coding Level of Care Code Est Pt Prev Care 40-64y(21954) Diagnoses Type 2 diabetes mellitus with diabetic polyneuropathy, without long-term current use of insulin E11.42 Diabetes mellitus technical support analyst insulin use: without custodial use Diabetes mellitus complication status: with neurologic complications Diabetes mellitus complication detail: with polyneuropathy Hypercholesteremia E78.00 S/P gastric sleeve procedure Z90.3 Polyarthralgia M25.50
== END 2024-02-28 11:28 | disposition home or self-care (01) ==
LOC: HO.HMGH 10:24
PROVIDERS: PCP Physician Assistant; Visit Provider Physician Assistant
DX: Z00.00 Encounter for general adult medical examination without abnormal findings (principal); E78.00 Pure hypercholesterolemia, unspecified; E11.42 Type 2 diabetes mellitus with diabetic polyneuropathy; Z90.3 Acquired absence of stomach [part of]; M25.50 Pain in unspecified joint
CPT/HCPCS: 83036; 99396

== ENCOUNTER 2024-02-28 11:43 | Outpatient (REF) | payer OTHER, SELFPAY ==
[2024-02-28 12:40] LABS: Hematocrit 37.5 % (37.0-47.0); Hemoglobin 12.4 g/dl (12.0-16.0); Mean Corpuscular HGB Conc 33.1 g/dl (31.0-35.0); Mean Corpuscular Hemoglobin 29.4 pg (27.0-33.0); Mean Corpuscular Volume 88.9 fL (80.0-98.0); Mean Platelet Volume 9.2 fL (9.4-12.3); Platelet Count 251 X10*3/uL (160-400); Red Blood Count 4.22 X10*6/uL (4.20-5.50); Red Cell Distribution Width 13.9 % (11.0-16.0); White Blood Count 7.6 X10*3/uL (4.8-10.8)
[2024-02-28 13:00] LABS: Rheumatoid Factor < 13.0 IU/mL (<15.0)
[2024-02-28 13:06] LABS: Alanine Aminotransferase 15 U/L (0-31); Albumin Level 4.5 g/dL (3.5-5.0); Alkaline Phosphatase 58 U/L (39-117); Anion Gap 11 (12-20); Aspartate Amino Transferase 18 U/L (5-31); Bilirubin Total 0.5 mg/dL (0.0-1.0); Blood Urea Nitrogen 20 mg/dL (9-16); Calcium 10.3 mg/dL (8.4-10.2); Carbon Dioxide 27 mmol/L (22-29); Chloride 109 mmol/L (96-108); Cholesterol 192 mg/dL (<200); Estimated Glomerular Filt Rate 50; Glucose Fasting 101 mg/dL (60-99); HDL Cholesterol 67 mg/dL (>40); Iron 75 mcg/dL (30-160); LDL Cholesterol Calculated 108 mg/dL (<100); Percent Iron Saturation 24 % (15-50); Potassium 4.2 mmol/L (3.3-5.1); Sodium 143 mmol/L (135-145); Total Iron Binding Capacity 307 mcg/dL (228-428); Total Protein 7.1 g/dL (6.5-8.0); Triglycerides 86 mg/dL (<150); Unsaturated Iron Binding 232 ug/dL
[2024-02-28 13:22] LABS: TSH reflex Free T4 1.11 uIU/mL (0.32-4.0)
[2024-03-02 15:03] LABS: Anti Nuclear Antibody Screen NEGATIVE (NEGATIVE)
[2024-03-02 20:03] LABS: Cyclic Citrullinated Peptide <16 UNITS
== END 2024-02-28 11:44 | disposition home or self-care (01) ==
LOC: HO.LAB 11:43
PROVIDERS: PCP Physician Assistant; Visit Provider Physician Assistant
DX: E11.42 Type 2 diabetes mellitus with diabetic polyneuropathy (principal); M25.50 Pain in unspecified joint; Z90.3 Acquired absence of stomach [part of]; E78.00 Pure hypercholesterolemia, unspecified; D50.9 Iron deficiency anemia, unspecified
CPT/HCPCS: 36415; 80053; 80061; 83540; 84443; 85027; 86038; 86200; 86431

== ENCOUNTER 2024-05-30 10:11 | Outpatient (AMB) | payer OTHER, SELFPAY ==
--- NOTE | 2024-05-30 10:19 | A.OFFPC_ITS ---
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 Accompanied by: Self / Same As Patient Allergies sumatriptan [From Imitrex] Allergy (Unknown, Verified 05/30/24 10:26) Throat tightness Medication List - Last Reconciled 05/30/24 by Jovanni Fine PA-C acetaminophen-caffeine 500-65 mg (Excedrin Tension Headache) 1 tab PO Q12H 7 days albuterol sulfate 90 mcg/actuation (Ventolin HFA) 2 puffs inhalation Q4-6H PRN albuterol sulfate 2.5 mg (3 mL) inhalation Q6H 30 days alcohol swabs (Alcohol Pads) 1 pad topical .once per day blood sugar diagnostic (FreeStyle Lite Strips) 1 strip miscellaneous DAILY 30 days blood-glucose meter (FreeStyle [place] kit) As directed fluticasone propionate 50 mcg/actuation 2 sprays intranasal DAILY 30 days lactulose 20 grams (30 mL) PO BID PRN 15 days loratadine 10 mg PO DAILY PRN lorazepam 1 tab PO DAILY PRN magnesium oxide 250 mg PO BID 30 days metformin 1,000 mg PO DAILY omeprazole magnesium (Prilosec OTC) 20 mg PO DAILY ondansetron 4 mg PO TID PRN riboflavin (vitamin B2) (Vitamin B-2) 50 mg PO DAILY tirzepatide (Mounjaro) 10 mg (0.5 mL) subcut QWEEK 4 weeks zolpidem 10 mg PO BEDTIME PRN Tobacco use date assessed: 09/30/23 Dental Screening Dental Screen Date: 11/24/23 HPI 3 Month F/U HPI Details Patient is a 53-year-old female here today for? a follow-up visit. Patient has a past medical history of type 2 diabetes, obesity (status post bariatric surgery) ,avascular necrosis of bilateral hips. Concern--> reports having polyarthralgia that has worsened over the last 3 months. She reports her joint pains worsened at night when she is still. She has been taking Tylenol without much relief. Of note does have a history of a left total knee replacement and left hip osteonecrosis. .. Status post bariatric sleeve has lost significant amount of weight, did have some complications with nausea and up a gastric pain. She continues to follow bariatric program at [facility], continues to follow bariatric diet and is physically active at the gym several days a week. Has started Trulicity though did not notice any weight loss. She has transitioned to a new GLP 1 (Mounjaro) and has low-dose another 10 lb weight loss. She has a goal weight of 140 lbas. . Type 2 diabetes: Has discontinued metformin and continues on GLP 1 for glycemic control and weight loss. .. ?Obesity: Has lost weight since last office visit, now on new GLP 1, BMI now 26. .has gotten surgery (gastric sleeve) at [facility] in [place]. [facility] Medical History (Updated 05/30/24 @ 10:35 by Jovanni Fine PA-C) Urinary incontinence HTN (hypertension) Hiatal hernia Depression Breast calcification, right Hypercholesteremia Snores COVID-19 vaccine series completed Personal history of COVID-19 IBS (irritable bowel syndrome) Neuropathy Family history of colon cancer Bacteremia due to Escherichia coli Type 2 diabetes mellitus Chronic, continuous use of opioids Chronic pain syndrome Surgical History History of esophagogastroduodenoscopy (EGD) H/O colonoscopy History of cholecystectomy S/P gastric sleeve procedure Hx of cystoscopy History of knee replacement, total S/P total hip arthroplasty H/O abdominoplasty Kidney stones H/O removal of cyst History of reversal of tubal ligation History of bilateral tubal ligation Hx of tonsillectomy Fibroids Family History Father High cholesterol Mother Colon cancer Cancer Mental problem Maternal Grandmother Diabetes Maternal Grandfather Diabetes Paternal Grandmother No problems noted. Paternal Grandfather No problems noted. 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 Cognitive needs: No Hearing needs: No Vision needs: No Female Reproductive History Menstrual Age of Menarche: 13 Questionnaire Thrive Questionnaire Date Thrive assessed: 09/30/23 ANUM-7 AMB Questionnaire ANUM-7 Date ANUM - 7 assessed: 09/30/23 Source: Developed by Drs. Quan Cagle, Jessica Rios, Aristeo Fraga and colleagues, with an educational faye from [employer]. Review of Systems Const Reports fatigue, Denies headache(s) and Reports malaise Eyes Denies loss of vision ENT Denies vertigo, Denies dizziness, Denies headache(s) and Denies sore throat Card Denies chest pain, Denies leg edema and Denies lightheadedness Resp Denies cough, Denies hemoptysis and Denies wheezing GI Denies abdominal pain, Denies melena, Denies constipation, Denies diarrhea and Denies vomiting Denies urinary frequency, Denies dysuria and Denies urinary urgency Musc Reports arthralgias, Denies joint swelling, Denies numbness and Denies tingling Neuro Denies Abnormal speech present, Denies behavioral changes, Denies vertigo, Denies dizziness, Denies headache(s), Denies loss of vision, Denies memory loss, Denies numbness and Denies tingling Psych Denies anxiety, Denies behavioral changes, Denies depression, Denies memory loss and Denies panic attacks Endo Reports fatigue Reddy/Lymph Denies easy bleeding and Denies easy bruising Aller/Immun Denies wheezing Physical exam (Primary Care) Vital Signs: Last Vital Signs Pulse 67 05/30/24 10:24 BP 100/70 05/30/24 10:24 Pulse Ox 97 05/30/24 10:24 Oxygen Delivery Method Room Air 05/30/24 10:24 BMI result Body Mass Index 26.7 Tobacco/Smoking Status: Tobacco use Status Tobacco use date assessed 09/30/23 05/30/24 10:19 Patient Tobacco Use Status Never used Tobacco 05/30/24 10:19 e-Cigarette/Vaping Use Never Used 05/30/24 10:19 Thrive Assessment: Date of Thrive Assessment Date Thrive assessed 09/30/23 05/30/24 10:19 Const General: healthy appearing, no acute distress, alert and awake Nutritional Appearance: well nourished Orientation/consciousness: oriented to person, oriented to place and oriented to time HENMT Ears: TM's normal bilaterally General nose exam: Normal nasal mucous membranes and turbinates present Eyes Conjunctivae: conjunctivae normal Sclerae: sclerae normal Pupils: Equal, round and reactive pupils present Neck Neck: Yes no lymphadenopathy and Yes no JVD Thyroid: Thyroid normal Carotids: no bruits Resp Effort & Inspection: normal respiratory effort and not tachypneic Auscultation: no crackles, no rales, no rhonchi and no wheezes Cardio Rate: regular rate Rhythm: regular rhythm Heart sounds: no murmurs and normal S1 and S2 GI Palpation (GI): Soft to palpation, nontender, no hepatomegaly and no splenomegaly Auscultation: normal bowel sounds Skin General skin exam: no rashes or lesions noted and dry skin Neuro General: oriented to person, oriented to place and oriented to time Cranial nerves: Yes Equal, round and reactive pupils present Speech: No Abnormal speech present Gait exam (Neuro): Normal gait present Motor exam (neuro): no tremor noted Extrem Right upper extremity: full ROM Left upper extremity: full ROM Right lower extremity: full ROM; no edema Left lower extremity: full ROM; no edema Psych Mental Status: mental status grossly normal Speech and movement: Normal speech and movement present Affect: normal affect Attitude: cooperative Thought process: Normal thought process present Assessment and Plan Assessment & Plan (1) DMII (diabetes mellitus, type 2): Code(s): E11.9 - Type 2 diabetes mellitus without complications Qualifiers: Diabetes mellitus detention insulin use: without jewelry sales coordinator use Diabetes mellitus complication status: with neurologic complications Diabetes mellitus complication detail: with polyneuropathy Qualified Code(s): E11.42 - Type 2 diabetes mellitus with diabetic polyneuropathy Plan: Patient's type 2 diabetes much better controlled since bariatric surgery. Has discontinue metformin,. She continues now on Mounjaro 10 mg. She does report some side effect constipation and some fatigue which is likely secondary to the GLP 1. Has lost more weight since last office visit and now BMI 26. She is noted to be now at her goal weight of 140. Will consider reducing dose of Mounjaro to try to reduce side effect (2) Hypercholesteremia: Code(s): E78.00 - Pure hypercholesterolemia, unspecified Plan: Patient's most recent lipid panel showing appropriate total cholesterol and LDL. Patient currently diet controlled.. Goal LDL to remain below 100. (3) S/P gastric sleeve procedure: Comment: 10/01/22 [facility] Code(s): Z90.3 - Acquired absence of stomach [part of] Plan: As per HPI (4) Polyarthralgia: Code(s): M25.50 - Pain in unspecified joint Plan: Reports worsening polyarthralgia over last few months. Does have significant osteoarthritis and osteonecrosis of her knees and hips. She will be following up with her orthopedic surgeon about her continued left hip pain, Advised on nonweightbearing exercises. She will look into using topical NSAIDs as she does have history of gastric sleeve. Orders: Orders Complete Blood Count no Diff Today K21.00 - Gastro-esophageal reflux disease with esophagitis, without bleeding Lipid Panel Today E78.00 - Pure hypercholesterolemia, unspecified Hemoglobin A1c Today E11.42 - Type 2 diabetes mellitus with diabetic polyneuropathy Comprehensive [place]. Panel Fast Today E11.42 - Type 2 diabetes mellitus with diabetic polyneuropathy Microalbumin, Random (w Creat) Today E11.42 - Type 2 diabetes mellitus with diabetic polyneuropathy TSH reflex Free T4 Today E03.9 - Hypothyroidism, unspecified Medications: New omeprazole 40 mg PO DAILY 30 caps 3RF 30 days K21.00 - Gastro-esophageal reflux disease with esophagitis, without bleeding Patient Instructions: Goal: A1c to remain below 6.5, maintain her weight loss Barriers: Adherence to physical activity and healthy eating habits Coding Level of Care Code Est Pt Level 4 (72904) Diagnoses Type 2 diabetes mellitus with diabetic polyneuropathy, without long-term current use of insulin E11.42 Diabetes mellitus jewelry sales coordinator insulin use: without detention use Diabetes mellitus complication status: with neurologic complications Diabetes mellitus complication detail: with polyneuropathy Hypercholesteremia E78.00 S/P gastric sleeve procedure Z90.3 Polyarthralgia M25.50
[2024-05-30 10:24] VITALS: BP 100/70; PULSE 67; O2SAT 97; BMI 26.7
== END 2024-05-30 10:46 | disposition home or self-care (01) ==
PROVIDERS: PCP Physician Assistant; Visit Provider Physician Assistant
DX: E11.42 Type 2 diabetes mellitus with diabetic polyneuropathy (principal); E78.00 Pure hypercholesterolemia, unspecified; Z90.3 Acquired absence of stomach [part of]; M25.50 Pain in unspecified joint
CPT/HCPCS: 99214

== ENCOUNTER 2024-05-30 11:10 | Outpatient (REF) | payer OTHER, SELFPAY ==
[2024-05-30 12:16] LABS: Hematocrit 39.8 % (37.0-47.0); Hemoglobin 12.8 g/dl (12.0-16.0); Mean Corpuscular HGB Conc 32.2 g/dl (31.0-35.0); Mean Corpuscular Hemoglobin 28.7 pg (27.0-33.0); Mean Corpuscular Volume 89.2 fL (80.0-98.0); Mean Platelet Volume 9.4 fL (9.4-12.3); Platelet Count 236 X10*3/uL (160-400); Red Blood Count 4.46 X10*6/uL (4.20-5.50); White Blood Count 5.4 X10*3/uL (4.8-10.8)
[2024-05-30 12:24] LABS: Estimated Average Glucose 94 mg/dL; Hemoglobin A1c % 4.9 % (<6.0)
[2024-05-30 12:45] LABS: Creatinine Urine 149.48 mg/dL
[2024-05-30 12:47] LABS: Alanine Aminotransferase 18 U/L (0-31); Albumin Level 4.3 g/dL (3.5-5.0); Alkaline Phosphatase 50 U/L (39-117); Anion Gap 12 (12-20); Aspartate Amino Transferase 20 U/L (5-31); Bilirubin Total 0.6 mg/dL (0.0-1.0); Blood Urea Nitrogen 12 mg/dL (9-16); Calcium 9.8 mg/dL (8.4-10.2); Carbon Dioxide 26 mmol/L (22-29); Chloride 107 mmol/L (96-108); Cholesterol 222 mg/dL (<200); Estimated Glomerular Filt Rate 56; Glucose Fasting 79 mg/dL (60-99); HDL Cholesterol 58 mg/dL (>40); LDL Cholesterol Calculated 137 mg/dL (<100); Potassium 3.9 mmol/L (3.3-5.1); Sodium 141 mmol/L (135-145); Triglycerides 138 mg/dL (<150)
[2024-05-30 13:05] LABS: TSH reflex Free T4 2.83 uIU/mL (0.32-4.0)
== END 2024-05-30 11:11 | disposition home or self-care (01) ==
LOC: HO.LAB 11:10
PROVIDERS: PCP Physician Assistant; Visit Provider Physician Assistant
DX: K21.00 Gastro-esophageal reflux disease with esophagitis, without bleeding (principal); E78.00 Pure hypercholesterolemia, unspecified; E11.42 Type 2 diabetes mellitus with diabetic polyneuropathy; E03.9 Hypothyroidism, unspecified
CPT/HCPCS: 36415; 80053; 80061; 82043; 82570; 83036; 84443; 85027

== ENCOUNTER 2024-08-30 10:19 | Outpatient (AMB) | payer OTHER, SELFPAY ==
[2024-08-30 10:33] VITALS: BP 110/60; PULSE 72; O2SAT 97; BMI 25.6
--- NOTE | 2024-08-30 10:33 | A.OFFPC_ITS ---
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 Arbitrator Required: No Accompanied by: Self / Same As Patient Allergies sumatriptan [From Imitrex] Allergy (Unknown, Verified 08/30/24 10:42) Throat tightness Medication List - Last Reconciled 08/30/24 by Jovanni Fine PA-C acetaminophen-caffeine 500-65 mg (Excedrin Tension Headache) 1 tab PO Q12H 7 days albuterol sulfate 2.5 mg (3 mL) inhalation Q6H 30 days albuterol sulfate 90 mcg/actuation (Ventolin HFA) 2 puffs inhalation Q4-6H PRN alcohol swabs (Alcohol Pads) 1 pad topical .once per day blood sugar diagnostic (FreeStyle Lite Strips) 1 strip miscellaneous DAILY 30 days blood-glucose meter (FreeStyle Grayling kit) As directed fluticasone propionate 50 mcg/actuation 2 sprays intranasal DAILY 30 days hydroxyzine HCl 25 - 50 mg PO DAILY PRN lactulose 20 grams (30 mL) PO BID PRN 15 days loratadine 10 mg PO DAILY PRN lorazepam 1 tab PO DAILY PRN magnesium oxide 250 mg PO BID 30 days metformin 1,000 mg PO DAILY omeprazole 40 mg PO DAILY ondansetron 4 mg PO TID PRN riboflavin (vitamin B2) (Vitamin B-2) 50 mg PO DAILY tirzepatide (Mounjaro) 10 mg (0.5 mL) subcut QWEEK 4 weeks zolpidem 10 mg PO BEDTIME PRN Tobacco use date assessed: 09/30/23 Dental Screening Dental Screen Date: 11/24/23 HPI f/u diabetes, weight check HPI Details Patient is a 54-year-old female here today for? a follow-up visit. Patient has a past medical history of type 2 diabetes, obesity (status post bariatric surgery) ,avascular necrosis of bilateral hips. Concern--> she reports over the last few weeks having left shoulder pain and left-sided upper trapezius pain. She can not recall any injury to her left shoulder. She is interested in getting x-ray and will consider physical therapy. She also reports having hot flashes at night to which she contributes to negro pause. She would like to establish care with a new tyre retreader in the area. We did discuss trying natural black cohosh supplement to help her with vasomotor symptoms of menopause. .. Status post bariatric sleeve has lost significant amount of weight, did have some complications with nausea and up a gastric pain. She continues to follow bariatric program at [facility], continues to follow bariatric diet and is physically active at the gym several days a week. Has started Trulicity though did not notice any weight loss. She has transitioned to a alternative GLP 1 (Mounjaro) and has low-dose another 10 lb weight loss. She has been her past her goal weight of 140 and now was 135 lb . She reports she feels great and would like to maintain her weight at his is. She is concerned about losing too much weight and will like to real back on GLP 1 dose. . Type 2 diabetes: Has discontinued metformin and continues on GLP 1 for glycemic control and weight loss. Today's A1c of 4.8 .. ?Obesity: Has lost weight since last office visit, now on new GLP 1, BMI now 25. .has gotten surgery (gastric sleeve) at [facility] in [place]. Laboratory Tests 09/30/23 11/24/23 02/28/24 10:49 10:16 10:45 RBC 4.48 Creatinine 0.94 Fasting Glucose Hgb A1c (Clinic) 5.9 5.4 Hemoglobin A1c % Cholesterol LDL Cholesterol, C alc 106 H TSH 02/28/24 05/30/24 12:11 11:45 RBC 4.22 Creatinine Fasting Glucose 101 H Hgb A1c (Clinic) Hemoglobin A1c % 4.9 Cholesterol 192 LDL Cholesterol, C alc 108 H 137 H TSH 1.11 [facility] Medical History (Updated 08/30/24 @ 12:15 by Jovanni Fine PA-C) Urinary incontinence HTN (hypertension) Hiatal hernia Depression Breast calcification, right Hypercholesteremia Snores COVID-19 vaccine series completed Personal history of COVID-19 IBS (irritable bowel syndrome) Neuropathy Family history of colon cancer Bacteremia due to Escherichia coli Type 2 diabetes mellitus Chronic, continuous use of opioids Chronic pain syndrome Surgical History History of esophagogastroduodenoscopy (EGD) H/O colonoscopy History of cholecystectomy S/P gastric sleeve procedure Hx of cystoscopy History of knee replacement, total S/P total hip arthroplasty H/O abdominoplasty Kidney stones H/O removal of cyst History of reversal of tubal ligation History of bilateral tubal ligation Hx of tonsillectomy Fibroids Family History Father High cholesterol Mother Colon cancer Cancer Mental problem Maternal Grandmother Diabetes Maternal Grandfather Diabetes Paternal Grandmother No problems noted. Paternal Grandfather No problems noted. 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 Cognitive needs: No Hearing needs: No Vision needs: No Female Reproductive History Menstrual Age of Menarche: 13 Questionnaire Thrive Questionnaire Date Thrive assessed: 09/30/23 ANUM-7 AMB Questionnaire ANUM-7 Date ANUM - 7 assessed: 09/30/23 Source: Developed by Drs. Quan Cagle, Jessica Rios, Aristeo Fraga and colleagues, with an educational faye from [employer]. Review of Systems Const Denies headache(s) Eyes Denies loss of vision ENT Denies vertigo, Denies dizziness, Denies headache(s) and Denies sore throat Card Denies chest pain, Denies leg edema and Denies lightheadedness Resp Denies cough, Denies hemoptysis and Denies wheezing GI Denies abdominal pain, Denies melena, Denies constipation, Denies diarrhea and Denies vomiting Denies urinary frequency, Denies dysuria and Denies urinary urgency Musc Denies arthralgias, Denies joint swelling, Denies numbness and Denies tingling Neuro Denies Abnormal speech present, Denies behavioral changes, Denies vertigo, Denies dizziness, Denies headache(s), Denies loss of vision, Denies memory loss, Denies numbness and Denies tingling Psych Denies anxiety, Denies behavioral changes, Denies depression, Denies memory loss and Denies panic attacks Reddy/Lymph Denies easy bleeding and Denies easy bruising Aller/Immun Denies wheezing Physical exam (Primary Care) Vital Signs: Last Vital Signs Pulse 72 08/30/24 10:33 BP 110/60 08/30/24 10:33 Pulse Ox 97 08/30/24 10:33 Oxygen Delivery Method Room Air 08/30/24 10:33 BMI result Body Mass Index 25.6 Tobacco/Smoking Status: Tobacco use Status Tobacco use date assessed 09/30/23 08/30/24 10:37 Patient Tobacco Use Status Never used Tobacco 08/30/24 10:37 e-Cigarette/Vaping Use Never Used 08/30/24 10:37 Thrive Assessment: Date of Thrive Assessment Date Thrive assessed 09/30/23 08/30/24 10:37 Const General: healthy appearing, no acute distress, alert and awake Nutritional Appearance: well nourished Orientation/consciousness: oriented to person, oriented to place and oriented to time HENMT Ears: TM's normal bilaterally General nose exam: Normal nasal mucous membranes and turbinates present Eyes Conjunctivae: conjunctivae normal Sclerae: sclerae normal Pupils: Equal, round and reactive pupils present Neck Neck: Yes no lymphadenopathy and Yes no JVD Thyroid: Thyroid normal Carotids: no bruits Resp Effort & Inspection: normal respiratory effort and not tachypneic Auscultation: no crackles, no rales, no rhonchi and no wheezes Cardio Rate: regular rate Rhythm: regular rhythm Heart sounds: no murmurs and normal S1 and S2 GI Palpation (GI): Soft to palpation, nontender, no hepatomegaly and no splenomegaly Auscultation: normal bowel sounds Skin General skin exam: no rashes or lesions noted and dry skin Neuro General: oriented to person, oriented to place and oriented to time Cranial nerves: Yes Equal, round and reactive pupils present Speech: No Abnormal speech present Gait exam (Neuro): Normal gait present Motor exam (neuro): no tremor noted Extrem Right upper extremity: full ROM Left upper extremity: full ROM Right lower extremity: full ROM; no edema Left lower extremity: full ROM; no edema Psych Mental Status: mental status grossly normal Speech and movement: Normal speech and movement present Affect: normal affect Attitude: cooperative Thought process: Normal thought process present Office Procedures Flu Questionnaire Does the patient have a severe egg allergy?: No Does the patient have severe life threatening allergies?: No Does the patient have a fever or illness today?: No Has the patient ever had Guillain-Centre Syndrome?: No Has the patient ever had any past reaction to a flu shot?: No Results AMB Hemoglobin A1c AMB Hemoglobin A1c 4.8 % Last Edit by OMI Morfin on 08/30/24 10:45 Immunizations Fluarix Triv [id number] (PF) 45 mcg (15 mcg x 3)/0.5 mL IM syringe Performing Provider: Jovanni Fine PA-C [facility] Administered by: OMI Morfin on 08/30/24 10:46 Dose Route Admin Location Dispensed Lot Number Expiration Date NDC Sales Support Manager 0.5 mL IM Right Deltoid 0.5 mL [id number] 03/26/25 [id number] [employer] VIS Given Date VIS Provided VIS Publication Date 08/30/24 Single Vaccine 21 Eligibility Eligibility Date Funding Source Not [facility] Eligible 08/30/24 Private Results Reviewed Results Reviewed: Laboratory Last Values Hgb A1c (Clinic) 4.8 % (4.0-6.0) 08/30/24 10:24 Coding Level of Care Code Est Pt Level 4 (93203) Diagnoses Type 2 diabetes mellitus with diabetic polyneuropathy, without long-term current use of insulin E11.42 Diabetes mellitus complication detail: with polyneuropathy Diabetes mellitus complication status: with neurologic complications Diabetes mellitus computer terminal operator insulin use: without computer terminal operator use Subacute frontal sinusitis J01.10 Sinusitis location: frontal Chronicity: subacute Left shoulder tendinitis M77.8 Menopausal hot flushes N95.1 Assessment & Plan Assessment & Plan (1) DMII (diabetes mellitus, type 2): Code(s): E11.9 - Type 2 diabetes mellitus without complications Category: Medical Qualifiers: Diabetes mellitus complication detail: with polyneuropathy Diabetes mellitus complication status: with neurologic complications Diabetes mellitus computer terminal operator insulin use: without prison use Qualified Code(s): E11.42 - Type 2 diabetes mellitus with diabetic polyneuropathy Plan: Patient's type 2 diabetes well controlled. Continues on GLP 1 with good effect. She has lost significant amount of weight since using GL P1. Her goal weight was to be 140 now at 135lbs. Will decrease her dose of GLP 1 and see if she will maintain weight loss with new eating habits and her physical activity. (2) Sinusitis: Code(s): J32.9 - Chronic sinusitis, unspecified Category: Medical Qualifiers: Sinusitis location: frontal Chronicity: subacute Qualified Code(s): J01.10 - Acute frontal sinusitis, unspecified Plan: Patient reports some nasal and sinus congestion as of late. She reports this happens to her every year in his treated with an antibiotic. (3) Left shoulder tendinitis: Code(s): M77.8 - Other enthesopathies, not elsewhere classified Category: Medical Plan: Patient reports she has been suffering with left upper trapezius and shoulder pain over last several weeks. Has not been able to take any NSAIDs due to her history of bariatric surgery. She is interested in getting x-ray. Advised on using Tylenol for pain. (4) Menopausal hot flushes: Code(s): N95.1 - Menopausal and female climacteric states Category: Medical Plan: Has been experiencing hot flash menopausal symptoms recently. She would like to establish with a local tyre retreader. We did discuss trying black cohosh natural supplement for vasomotor symptoms of menopause. Orders: Orders Influenza [id number] Immunization Today Z23 - Encounter for immunization AMB Hemoglobin A1c Today E11.42 - Type 2 diabetes mellitus with diabetic polyneuropathy XR shoulder LT min 2V Today M77.8 - Other enthesopathies, not elsewhere classified Referrals DIV[employer] SUPERVISOR Referral N95.1 - Menopausal and female climacteric states Medications: New azithromycin For 250 mg dose pack: take 500 mg today (day 1), then 250 mg for 4 days (days 2-5) PO 6 tabs 0RF J01.10 - Acute frontal sinusitis, unspecified tirzepatide (Mounjaro) 7.5 mg (0.5 mL) subcut QWEEK 4 weeks 2 mL 2RF E11.42 - Type 2 diabetes mellitus with diabetic polyneuropathy Refilled albuterol sulfate 90 mcg/actuation (Ventolin HFA) 2 puffs inhalation Q4-6H PRN 8.5 grams 1RF shortness of breath or wheezing J45.909 - Unspecified asthma, uncomplicated On Hold tirzepatide (Mounjaro) Hold Comment: Doctor's Order 10 mg (0.5 mL) subcut QWEEK 4 weeks 2 mL 3RF E11.42 - Type 2 diabetes mellitus with diabetic polyneuropathy
== END 2024-08-30 11:06 | disposition home or self-care (01) ==
PROVIDERS: PCP Physician Assistant; Visit Provider Physician Assistant
DX: E11.42 Type 2 diabetes mellitus with diabetic polyneuropathy (principal); J01.10 Acute frontal sinusitis, unspecified; M77.8 Other enthesopathies, not elsewhere classified; N95.1 Menopausal and female climacteric states; Z23 Encounter for immunization

== ENCOUNTER → 2024-08-30 10:19 | Outpatient (BNVA) | payer OTHER, SELFPAY | PROVIDERS: PCP Physician Assistant; Visit Provider Physician Assistant | DX: E11.42 Type 2 diabetes mellitus with diabetic polyneuropathy (principal); J01.10 Acute frontal sinusitis, unspecified; M77.8 Other enthesopathies, not elsewhere classified; N95.1 Menopausal and female climacteric states; Z23 Encounter for immunization | CPT/HCPCS: 83036; 90471; 90656 ==

== ENCOUNTER 2024-12-13 09:58 | Outpatient (REF) | payer OTHER, SELFPAY ==
--- NOTE | ~2024-12-13 | XR_ITS ---
EXAMINATION: XR HIP 2 OR MORE VIEWS RIGHT HISTORY: M87.051 - Idiopathic aseptic necrosis of right femur COMPARISON: Comparison is made with the prior examination dated 10/05/2019. FINDINGS: Two views of the right hip are submitted. The patient is status post interval total hip arthroplasty. The orthopedic elements are in anatomic alignment. There is no radiographic evidence of loosening. There is no fracture or dislocation. The soft tissues are unremarkable. XR/XR hip RT min 2V IMPRESSION: Status post right total hip arthroplasty. Electronically signed by: Quan Uribe MD 12/14/2024 08:16 AM EDT
[2024-12-13 12:21] LABS: MANUAL DIFF FLAG NO
[2024-12-13 12:52] LABS: Basophils Percent Auto 0.5 % (0-2); Eosinophils Absolute Auto 0.1 X10*3/uL (0.0-0.4); Eosinophils Percent Auto 2.1 % (0-4); Hematocrit 38.1 % (37.0-47.0); Hemoglobin 12.8 g/dl (12.0-16.0); Imm Gran Abs Auto 0.02 X10*3/uL (0.00-0.03); Imm Gran Pct Auto 0.3 % (0.0-0.4); Lymphocytes Absolute Auto 2.2 X10*3/uL (1.2-4.9); Lymphocytes Percent Auto 38.3 % (20-40); Mean Corpuscular HGB Conc 33.6 g/dl (31.0-35.0); Mean Corpuscular Hemoglobin 29.2 pg (27.0-33.0); Mean Corpuscular Volume 86.8 fL (80.0-98.0); Mean Platelet Volume 9.1 fL (9.4-12.3); Monocytes Absolute Auto 0.5 X10*3/uL (0.1-1.2); Monocytes Percent Auto 8.7 % (2-11); Neutrophils Absolute Auto 2.9 x10*3/uL (2.0-8.3); Neutrophils Percent Auto 50.1 % (45-73); Platelet Count 243 X10*3/uL (160-400); Red Blood Count 4.39 X10*6/uL (4.20-5.50); Red Cell Distribution Width 13.5 % (11.0-16.0); White Blood Count 5.8 X10*3/uL (4.8-10.8)
[2024-12-13 12:59] LABS: Estimated Average Glucose 97 mg/dL; Total Hemoglobin (HGBA1C) 3326.7299 umol/L
[2024-12-13 13:32] LABS: Iron 72 mcg/dL (30-160); Magnesium 2.2 mg/dL (1.6-2.6); Percent Iron Saturation 23 % (15-50); Phosphorus 3.3 mg/dL (2.7-4.5); Total Iron Binding Capacity 312 mcg/dL (228-428); Unsaturated Iron Binding 240 ug/dL
[2024-12-13 13:35] LABS: Alanine Aminotransferase 19 U/L (0-31); Albumin Level 4.7 g/dL (3.5-5.0); Alkaline Phosphatase 60 U/L (39-117); Anion Gap 10 (12-20); Aspartate Amino Transferase 21 U/L (5-31); Bilirubin Total 0.5 mg/dL (0.0-1.0); Blood Urea Nitrogen 16 mg/dL (9-16); Calcium 10.3 mg/dL (8.4-10.2); Carbon Dioxide 28 mmol/L (22-29); Chloride 107 mmol/L (96-108); Cholesterol 233 mg/dL (<200); Estimated Glomerular Filt Rate 58; Glucose Random 81 mg/dL (60-115); HDL Cholesterol 83 mg/dL (>40); Iron 72 mcg/dL (30-160); LDL Cholesterol Calculated 133 mg/dL (<100); Magnesium 2.2 mg/dL (1.6-2.6); Percent Iron Saturation 23 % (15-50); Phosphorus 3.4 mg/dL (2.7-4.5); Potassium 4.3 mmol/L (3.3-5.1); Sodium 141 mmol/L (135-145); Total Iron Binding Capacity 314 mcg/dL (228-428); Triglycerides 88 mg/dL (<150); Unsaturated Iron Binding 242 ug/dL
[2024-12-13 13:36] LABS: Parathyroid Hormone Intact 31.4 pg/mL (8.7-77.1)
[2024-12-13 13:49] LABS: Thyroid Stimulating Hormone 1.36 uIU/mL (0.32-4.0); Vitamin D 25-OH Total 33.5 ng/mL (>30)
[2024-12-13 13:50] LABS: Vitamin D 25-OH Total 35.5 ng/mL (>30)
[2024-12-13 14:01] LABS: Folate 9.9 ng/mL (> or = 4.0); Vitamin B12 1054 pg/mL (200-900)
[2024-12-13 14:03] LABS: Folate 9.3 ng/mL (> or = 4.0); Vitamin B12 1030 pg/mL (200-900)
[2024-12-16 01:08] LABS: Zinc 77 mcg/dL (60-130)
[2024-12-16 01:29] LABS: Copper, serum 135 mcg/dL (70-175); Zinc 86 mcg/dL (60-130)
[2024-12-16 13:29] LABS: Vitamin A 45 mcg/dL (38-98)
[2024-12-24 01:03] LABS: Vitamin B1 11 nmol/L (8-30)
== END 2024-12-13 09:59 | disposition home or self-care (01) ==
LOC: HO.XRAY 09:58
PROVIDERS: PCP Physician Assistant; Visit Provider Physician Assistant
DX: E11.42 Type 2 diabetes mellitus with diabetic polyneuropathy (principal); M87.051 Idiopathic aseptic necrosis of right femur; F41.1 Generalized anxiety disorder; E03.9 Hypothyroidism, unspecified; D50.9 Iron deficiency anemia, unspecified; E53.8 Deficiency of other specified B group vitamins; Z90.3 Acquired absence of stomach [part of]
CPT/HCPCS: 36415; 73502; 80053; 80061; 82306; 82525; 82607; 82746; 83036; 83540; 83735; 83970; 84100; 84207; 84425; 84443; 84590; 84630; 85025; 96127

== ENCOUNTER 2024-12-13 09:58 | Outpatient (AMB) | payer OTHER, SELFPAY ==
[2024-12-13 10:34] VITALS: BP 90/68; PULSE 62; TEMP 36.2; O2SAT 99; BMI 24.9
--- NOTE | 2024-12-13 10:34 | MHC.PC.OV ---
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: No Accompanied by: Self / Same As Patient Allergies sumatriptan [From Imitrex] Allergy (Unknown, Verified 12/13/24 10:35) Throat tightness Medication List - Last Reconciled 12/13/24 by Jovanni Fine PA-C acetaminophen-caffeine 500-65 mg (Excedrin Tension Headache) 1 tab PO Q12H 7 days albuterol sulfate 2.5 mg (3 mL) inhalation Q6H 30 days albuterol sulfate 90 mcg/actuation (Ventolin HFA) 2 puffs inhalation Q4-6H PRN alcohol swabs (Alcohol Pads) 1 pad topical .once per day blood sugar diagnostic (FreeStyle Lite Strips) 1 strip miscellaneous DAILY 30 days blood-glucose meter (FreeStyle Lester kit) As directed fluticasone propionate 50 mcg/actuation 2 sprays intranasal DAILY 30 days hydroxyzine HCl 25 - 50 mg PO DAILY PRN lactulose 20 grams (30 mL) PO BID PRN 15 days lancets (FreeStyle Lancets) As directed loratadine 10 mg PO DAILY PRN lorazepam 1 tab PO DAILY PRN magnesium oxide 250 mg PO BID 30 days metformin 1,000 mg PO DAILY omeprazole 40 mg PO DAILY ondansetron 4 mg PO TID PRN 14 days riboflavin (vitamin B2) (Vitamin B-2) 50 mg PO DAILY tirzepatide (Mounjaro) 10 mg (0.5 mL) subcut QWEEK 4 weeks tirzepatide (Mounjaro) 7.5 mg (0.5 mL) subcut QWEEK 4 weeks zolpidem 10 mg PO BEDTIME PRN Tobacco use date assessed: 09/30/23 Dental Screening Dental Screen Date: 11/24/23 HPI discuss labs/ bird HPI Details Patient is a 54-year-old female here today for? a follow-up visit. Patient has a past medical history of type 2 diabetes, obesity (status post bariatric surgery) ,avascular necrosis of bilateral hips. Concern--> she reports her anxiety has been elevated as of late due to personal issues in an anniversary of her daughter's major car accident. She also reports suffering a fall 2 weeks ago landing on her left shoulder and hand. She still has some moderate pain when using the left upper extremity. Menopause/ vasomotor symptoms: She also reports having hot flashes at night to which she contributes to menopause. She would like to establish care with a new adjunct professor of voice in the area. She has been trying the black cohosh though does not seem to be helpful for her menopause. We did discuss trying fluoxetine .. Status post bariatric sleeve has lost significant amount of weight, did have some complications with nausea and up a gastric pain. She continues to follow bariatric program at [facility], continues to follow bariatric diet and is physically active at the gym several days a week. She has followed up with her bariatric surgeon whom will be sending her for labs to check vitamin levels ect.. We continue obesity management combined with diabetes care. There is an active discussion regarding her current weight management using Mounjaro, with concerns over the balance between excessive weight loss and regain. She has maintained her current weight through medication but noticed increased hunger when the dose was reduced. The goal remains to maintain her weight without medication gradually. . Type 2 diabetes: Has discontinued metformin and continues on GLP 1 for glycemic control and weight loss. Most recent A1c at 4.8 PFSH Medical History Urinary incontinence HTN (hypertension) Hiatal hernia Depression Breast calcification, right Hypercholesteremia Snores COVID-19 vaccine series completed Personal history of COVID-19 IBS (irritable bowel syndrome) Neuropathy Family history of colon cancer Bacteremia due to Escherichia coli Type 2 diabetes mellitus Chronic, continuous use of opioids Chronic pain syndrome Surgical History History of esophagogastroduodenoscopy (EGD) H/O colonoscopy History of cholecystectomy S/P gastric sleeve procedure Hx of cystoscopy History of knee replacement, total S/P total hip arthroplasty H/O abdominoplasty Kidney stones H/O removal of cyst History of reversal of tubal ligation History of bilateral tubal ligation Hx of tonsillectomy Fibroids Family History Father High cholesterol Mother Colon cancer Cancer Mental problem Maternal Grandmother Diabetes Maternal Grandfather Diabetes Paternal Grandmother No problems noted. Paternal Grandfather No problems noted. 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 Cognitive needs: No Hearing needs: No Vision needs: No Female Reproductive History Menstrual Age of Menarche: 13 Questionnaire PHQ-9 Over the last 2 weeks, how often have you been bothered by any of the following problems? 1. Little interest or pleasure in doing things: not at all 2. Feeling down, depressed, or hopeless: not at all 3. Trouble falling or staying asleep, or sleeping too much: not at all 4. Feeling tired or having little energy: not at all 5. Poor appetite or overeating: not at all 6. Feeling bad about yourself - or that you are a failure or have let yourself or your family down: not at all 7. Trouble concentrating on things, such as reading the newspaper or watching television: not at all 8. Moving or speaking so slowly that other people could have noticed. Or the opposite - being so fidgety or restless that you have been moving around a lot more than usual: not at all 9. Thoughts that you would be better off or of hurting yourself in some way: not at all Total score: 0 Depression Screening Interpretation: Negative Depression Screening Done: Yes 94836 - PHQ-9 Billing: Yes Source: Developed by Drs. Quan Cagle, Jessica Rios, Aristeo Fraga and colleagues, with an educational faye from [employer]. Thrive Questionnaire Date Thrive assessed: 12/13/24 I am a: Patient What is your living situation today?: I have a steady place to live Within the past 12 months, did the food you bought not last and you didn't have the money to get more?: Never true Within the past 12 months, did you worry whether your food would run out before you got money to buy more?: Never true Do you have trouble paying for medicines?: No Do you have trouble getting transportation to medical appointments?: No Do you have trouble paying your heating and electricity bill?: No Do you have trouble taking care of your child, family member or friend?: No Do you have trouble with day-to-day activities such as bathing, preparing meals, shopping, managing finances, etc.?: No Are you currently unemployed and looking for a job?: No Are you interested in more education?: No Please select the resources that you would like help with: None Currently or been in a relationship where the following occur: No concerns reported THRIVE Score: 0 AUDIT C Alcohol Use Questionnaire (AUDIT-C) 1. How often do you have a drink containing alcohol?: Never 3. How often do you have six or more drinks on one occasion?: Never Total Score: 0 ANUM-7 AMB Questionnaire ANUM-7 Date ANUM - 7 assessed: 12/13/24 Feeling nervous, anxious, or on edge: 0 = Not at all Not being able to stop or control worryin = Not at all Worrying too much about different things: 0 = Not at all Trouble relaxin = Not at all Being so restless that it is hard to sit still: 0 = Not at all Becoming easily annoyed or irritable: 0 = Not at all Feeling afraid as if something awful might happen: 0 = Not at all Total ANUM-7 score (0-4 normal; 5-9 mild; 10-14 moderate; 15-21 severe): 0 Source: Developed by Drs. Quan Cagle, Jessica Rios, Aristeo Fraga and colleagues, with an educational faye from [employer]. ANUM-7 Assessment Billing ANUM-7 Assessment Tool: ANUM-7 Assessment 88469 Review of Systems Const Denies headache(s) Eyes Denies loss of vision ENT Denies vertigo, Denies dizziness, Denies headache(s) and Denies sore throat Card Denies chest pain, Denies leg edema and Denies lightheadedness Resp Denies cough, Denies hemoptysis and Denies wheezing GI Denies abdominal pain, Denies melena, Denies constipation, Denies diarrhea and Denies vomiting Denies urinary frequency, Denies dysuria and Denies urinary urgency Musc Denies arthralgias, Denies joint swelling, Denies numbness and Denies tingling Neuro Denies Abnormal speech present, Denies behavioral changes, Denies vertigo, Denies dizziness, Denies headache(s), Denies loss of vision, Denies memory loss, Denies numbness and Denies tingling Psych Denies anxiety, Denies behavioral changes, Denies depression, Denies memory loss and Denies panic attacks Reddy/Lymph Denies easy bleeding and Denies easy bruising Aller/Immun Denies wheezing Physical exam (Primary Care) Vital Signs: Last Vital Signs Temp 97.1 F 12/13/24 10:34 Pulse 62 12/13/24 10:34 BP 90/68 12/13/24 10:34 Pulse Ox 99 12/13/24 10:34 Oxygen Delivery Method Room Air 12/13/24 10:34 BMI result Body Mass Index 24.9 Tobacco/Smoking Status: Tobacco use Status Tobacco use date assessed 09/30/23 12/13/24 10:35 Patient Tobacco Use Status Never used Tobacco 12/13/24 10:35 e-Cigarette/Vaping Use Never Used 12/13/24 10:35 Depression Screening Interpretation: Negative Thrive Assessment: Date of Thrive Assessment Date Thrive assessed 09/30/23 12/13/24 10:35 Currently or been in a relationship where the following occur: No concerns reported Const General: healthy appearing, no acute distress, alert and awake Nutritional Appearance: well nourished Orientation/consciousness: oriented to person, oriented to place and oriented to time [facility] Ears: TM's normal bilaterally General nose exam: Normal nasal mucous membranes and turbinates present Eyes Conjunctivae: conjunctivae normal Sclerae: sclerae normal Pupils: Equal, round and reactive pupils present Neck Neck: Yes no lymphadenopathy and Yes no JVD Thyroid: Thyroid normal Carotids: no bruits Resp Effort & Inspection: normal respiratory effort and not tachypneic Auscultation: no crackles, no rales, no rhonchi and no wheezes Cardio Rate: regular rate Rhythm: regular rhythm Heart sounds: no murmurs and normal S1 and S2 GI Palpation (GI): Soft to palpation, nontender, no hepatomegaly and no splenomegaly Auscultation: normal bowel sounds Skin General skin exam: no rashes or lesions noted and dry skin Neuro General: oriented to person, oriented to place and oriented to time Cranial nerves: Yes Equal, round and reactive pupils present Speech: No Abnormal speech present Gait exam (Neuro): Normal gait present Motor exam (neuro): no tremor noted Extrem Right upper extremity: full ROM Left upper extremity: full ROM Right lower extremity: full ROM; no edema Left lower extremity: full ROM; no edema Psych Mental Status: mental status grossly normal Speech and movement: Normal speech and movement present Affect: normal affect Attitude: cooperative Thought process: Normal thought process present Coding Level of Care Code Est Pt Level 4 (00936) Diagnoses Type 2 diabetes mellitus with diabetic polyneuropathy, without long-term current use of insulin E11.42 Diabetes mellitus senior care insulin use: without senior care use Diabetes mellitus complication status: with neurologic complications Diabetes mellitus complication detail: with polyneuropathy Avascular necrosis of bone of right hip M87.051 ANUM (generalized anxiety disorder) F41.1 Hypothyroidism, unspecified type E03.9 Hypothyroidism type: unspecified Additional Codes ANUM-7 Assessment Billing - ANUM-7 Assessment Tool: ANUM-7 Assessment 51854 ([id number]) PHQ-9 - 15856 - PHQ-9 Billing: Yes ([id number]) Assessment & Plan Assessment & Plan (1) DMII (diabetes mellitus, type 2): Code(s): E11.9 - Type 2 diabetes mellitus without complications Category: Medical Qualifiers: Diabetes mellitus supervisor intermediates insulin use: without senior care use Diabetes mellitus complication status: with neurologic complications Diabetes mellitus complication detail: with polyneuropathy Qualified Code(s): E11.42 - Type 2 diabetes mellitus with diabetic polyneuropathy Plan: Patient's type 2 diabetes well controlled. Continues on GLP 1 with good effect. She has lost significant amount of weight since using GL P1. . Mounjaro 5 mg will continue bi-weekly with plans to reduce dosage incrementally to assess medication independence. Patient is encouraged to maintain a balanced diet and regular exercise. Ongoing glucose monitoring and emphasis on dietary management is prioritized. Upcoming fasting bloodwork, including A1c, will guide any future changes in management. Goal A1c is to remain below 6.5 (2) Avascular necrosis of bone of right hip: Code(s): M87.051 - Idiopathic aseptic necrosis of right femur Category: Medical Plan: Patient has a history of a right hip replacement due to avascular necrosis of bone. She does report having some pain in her right hip as of recently to which she attributes to long periods of sitting at work. We did discuss possibly changing her ergonomics at work. Will send for x-ray of the right hip to evaluate the hardware. (3) ANUM (generalized anxiety disorder): Code(s): F41.1 - Generalized anxiety disorder Category: Medical Plan: Patient has been having increased anxiety as of late. She does speak with a mental therapist and psychiatrist who manages her mental health medication. She does use hydroxyzine from time to time for anxiety (4) Hypothyroid: Code(s): E03.9 - Hypothyroidism, unspecified Category: Medical Qualifiers: Hypothyroidism type: unspecified Qualified Code(s): E03.9 - Hypothyroidism, unspecified Plan: Patient has a history hypothyroidism. Most recent TSH has been stable not on medication. Will continue to follow TSH Orders: Orders Copper, serum Today Z90.3 - Acquired absence of stomach [part of] Vitamin A Today Z90.3 - Acquired absence of stomach [part of] Parathyroid Hormone Intact Today Z90.3 - Acquired absence of stomach [part of] Vitamin D 25-OH Total Today Z90.3 - Acquired absence of stomach [part of] IRON PROFILE Today D50.9 - Iron deficiency anemia, unspecified, Z90.3 - Acquired absence of stomach [part of] Vitamin B12 and Folate Today D50.9 - Iron deficiency anemia, unspecified, E53.8 - Deficiency of other specified B group vitamins Zinc Today Z90.3 - Acquired absence of stomach [part of] Vitamin B6 Today Z90.3 - Acquired absence of stomach [part of] Vitamin B1 Today Z90.3 - Acquired absence of stomach [part of] Phosphorus Today Z90.3 - Acquired absence of stomach [part of] Magnesium Today Z90.3 - Acquired absence of stomach [part of] XR hip RT min 2V Today M87.051 - Idiopathic aseptic necrosis of right femur Referrals BUSINESS UNIT LEADER Referral N95.1 - Menopausal and female climacteric states Medications: New tirzepatide (Mounjaro) 5 mg (0.5 mL) subcut QWEEK 4 weeks 2 mL 0RF E11.42 - Type 2 diabetes mellitus with diabetic polyneuropathy On Hold tirzepatide (Mounjaro) Hold Comment: Doctor's Order 7.5 mg (0.5 mL) subcut QWEEK 4 weeks 2 mL 2RF E11.42 - Type 2 diabetes mellitus with diabetic polyneuropathy
--- OUTSIDE RECORDS SUMMARY | 2024-12-13 11:24 | XMS_ITS | Patient Health Record ---
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 Name Role Phone Jovanni Fine Primary Care Provider Quan Aquino Unavailable [phone] Allergies Allergen (clinical drug ingredient) Drug/Non Drug Allergy documented on EMR Reaction Allergy Type Onset Date Status Non-steroidal anti-inflammatory agent (FN) NSAIDs Unknown Drug Allergy Active sumatriptan Imitrex trouble swallowing Drug Allergy Active Reason For Referral No Information Medications Medication SIG (Take, Route, Frequency, Duration) Notes Start Date End Date Status Fluticasone Propionate HFA as needed Active Ventolin HFA 108 (90 Base) MCG/ACT Inhalation for 30 as needed Active metFORMIN HCl ER Act khadra Omeprazole 20 MG 1 capsule Orally Onc e a day Not-Taking Colestipol HCl 1 GM TAKE 1 TABLET BY MOUTH TWICE A DAY FOR 30 DAYS for 90 as needed Not-Taking LORazepam 1 MG Oral for 10 Act khadra Ondansetron 4 MG Oral for 30 A ctive PriLOSEC OTC 20 MG 1 once or twice a day Active Escitalopram Oxalate Not-Taking Zolpidem Tartrate Ac tive Minoxidil Not-Taking Loratadine as needed Active Meclizine HCl Not-Ta antonio Immunizations Vaccine Route Administration Date Status Comme nts Influenza Unknown 09/18/2021 Refused Influenza Unknown 07/23/2023 Refused Social History Tobacco Use: Social History Observation Description Date Details (start date - stop date) Never Smoker NA - NA Tobacco Use/Smoking Question Answer Notes Patient is a nonsmoker Section Notes: Nonsmoker and no sig. alcoho l Nonsmoker and no sig. alcoho l Nonsmoker and no sig. alcoho l Nonsmoker and no sig. alcoho l Nonsmoker and no sig. alcoho l Nonsmoker and no sig. alcoho l Problems Problem Type SNOMED Code ICD Code Onset Dates Problem Status W/U Status Risk Notes Problem Esophageal reflux (127482380) Esophageal reflux (K21.9) Active confirmed Problem 066116469 Encounter for screening for malignant neoplasm of colon (Z12.11) Active confirmed Problem 740121026 History of adenomatous polyp of colon (Z86.010) Active confirmed Problem 02842637 Diarrhea (R19.7) Active confirmed Problem 229348028 Irritable bowel syndrome with diarrhea (K58.0) Active confirmed Problem 275038595 Nausea (R11.0) Active confirmed Problem History of gastrointestinal tract bypass (674116825) Intestinal bypass and anastomosis status (Z98.0) Active confirmed Problem 999175967 Gastroesophageal reflux disease without esophagitis (K21.9) Active confirmed Problem 012936684 Gastroesophageal reflux disease, esophagitis presence not specified (K21.9) Active confirmed Problem 430288148 Family history o f colon cancer (Z80.0) Active confirmed Problem Gastritis (7910876) Gastritis (K29.70) Active c onfirmed Problem Gastroesophageal reflux disease (283733747) Esophageal reflux disease (K21.9) Active confirmed Problem Diverticular disease of colon (359493564) Colon, diverticulosis (K57.30) Active confirmed Plan Of Treatment Future Test Test Name Order Date COLONOSCOPY 02/06/2016 UPPER GI ENDOSCOPY 09/18/2021 COLONOSCOPY 09/18/2021 UPPER GI ENDOSCOPY 07/23/2023 Insurance Providers Payer Name Payer Address Payer Phone Subscriber Number Group Number Insured Name Patient Relationship to Insured Coverage Start Date Coverage End Date Amina [facility] [address] [facility] [phone] [id number] JAVID AVILA Self - patient is the insured Medical (General) History Medical History History ICD Code Depression Avascular necrosis of hips Denies CA,CVA,renal disease Colonoscopy in 06/2012-1 tub ular adenoma removed; colonoscopy 03/2016--no polyps, no IBD, biopsies of colon were normal--no microscopic colitis GERD--EGD in November of 2015 r evealed a small hiatal hernia and erosive esophagitis--biopsies were negative for celiac disease, H. pylori, and Gregory's esophagus IBS--she had previously had constipation, but ever since a cholecystectomy in 2014 she has had predominantly diarrhea Kidney stones Obesity--she is currently be ing seen at the [facility] weight loss center in [place] NIDDM improved after her bar iatric surgery in September of 2022--she lost over 50 pounds Asthma Hypertension Urinary incontinence Urosepsis 07/2020 at [facility] Upper endoscopy in September with the finding of a small hiatal hernia and mild reflux. There was no significant esophagitis. Biopsies were negative for Gregory's esophagus. Colonoscopy in September revealed only a hyperplastic polyp that was removed but the prep was somewhat suboptimal and she was advised to repeat a colonoscopy in 2024 rather than 2026 Surgical History Surgery Date(Month/Year) BTL, with subsequent reversal 2009 Uterine Fibroid Tummy tuck Cholecystectomy with Dr. Erwin 02/2015 Precancerous lesion removed from vulva Right knee replacement in 09/[address] Radha Vincent 09/2018 Right hip replacement 06/2020 Tonsillectomy Gastric sleeve 09/2022 at [facility] in [place]. She lost over 50 pounds as of the June, office visit. The pathology from the gastric resection showed only benign fundic-type gastric mucosa with some focal metaplasia but no dysplasia nor H. pylori.
--- OUTSIDE RECORDS SUMMARY | 2024-12-13 11:24 | XMS_ITS | Clinical Summary ---
Author Organization [facility] Address [address] [place] [address] Phone Care Team Providers Care Monkey Keeper Name Role Phone Jovanni Fine Primary Care Provider [phone] Allergies Active Allergy Reactions Criticality Noted Date Comments Nsaids (Non-Steroidal Anti-I nflammatory Drug) Angioedema High 09/28/2021 Sumatriptan Rash High 09/21/2024 Medications metFORMIN (GLUCOPHAGE) 1,000 mg tablet Take 1 tablet (1,000 mg total) by mouth 1 (one) time each day with breakfast. 02/16/2022 Active Encounters Date Type Department Care Team Description 09/21/2024 3:27 PM EST - 09/21/2024 8:25 PM EST Emergency [facility] Emergency [address] [place] [address] Silvio Crabtree DO Dizziness (Primary Dx); Acute nonintractable headache, unspecified headache type Discharge Disposition: Home or Self Care from Last 3 Months Surgical History Surgery Date Site/Laterality Comments OTHER SURGICAL HISTORY 2009 PROCEDURE: [place] MYOMECTOMY 1-4 MYOMAS W/250 GM/< ABDOMINAL APPR CHOLECYSTECTOMY 02/2015 PROCEDURE: HISTORICAL CHOLECYSTECTOMY BELT ABDOMINOPLASTY PROCEDURE: HISTORICAL TUMMY TUCK OTHER SURGICAL HISTORY 10/2017 PROCEDURE: [place] VULVECTOMY SIMPLE PARTIAL; COMMENT: carcinoma in situ, done at [facility] TOTAL KNEE ARTHROPLASTY 10/04/2018 Right PROCEDURE: [place] ARTHRP KNE CONDYLE&PLATU MEDIAL&LAT COMPARTMENTS COLONOSCOPY 04/24/2016 PROCEDURE: OUTSIDE COLONOSCOPY; COMMENT: Diverticulosis,Normal, Repeat 5 yrs COLONOSCOPY 07/18/2012 PROCEDURE: OUTSIDE COLONOSCOPY; COMMENT: tubular adenoma, diverticulosis, repeat 5 yrs OTHER SURGICAL HISTORY 12/13/2015 PROCEDURE: OUTSIDE ENDOSCOPY; COMMENT: mild chronic esophagitis TUBAL LIGATION PROCEDURE: HISTORICAL TUBAL LIGATION OTHER SURGICAL HISTORY PROCEDURE: [place] UNLISTED LAPAROSCOPY PROCEDURE OVIDUCT OVARY; COMMENT: Tubal Reversal Medical History Medical History Date Comments 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 DX:Bi le salt-induced diarrhea Obesity (BMI 35.0-39.9 witho ut comorbidity) DX:Obesity (BMI 35.0-39.9 wi thout comorbidity) Anxiety DX:Anxiety Depression DX:Depression Allergic rhinitis DX:Allergic rh initis Alopecia DX:Alopecia ADD (attention deficit disorder) DX:ADD (attention deficit disorder) GERD (gastroesophageal reflux disease) DX:GERD (gastroesophageal reflux disease) Migraine DX:Migraine Hypothyroidism DX:Hypothyroidis m RLS (restless legs syndrome) DX: RLS (restless legs syndrome) Vitamin D deficiency DX:Vitamin D deficiency Kidney stones DX:Kidney stones Stable asthma, mild intermittent DX:Stable asthma, mild intermittent Osteoarthritis of knees, bilateral DX:Osteoarthritis of knees, bilateral Insomnia DX:Insomnia Fibromyalgia DX:Fibromyalgia IBS (irritable bowel syndrome) 03/01/2019 D X:IBS (irritable bowel syndrome) Total knee replacement status 03/29/2019 DX :Total knee replacement status; COMMENT: 09/2018 Right Tubular adenoma of colon 03/21/2019 DX:Tubu lar adenoma of colon; COMMENT: 2015 CN normal, Repeat 5 yrs Family History Medical History Relation Name Comments Other cancer Father Hypercholestero lemia Colon cancer Mother Diabetes, Hyper tension, Cholelithiasis, Nephrolithiasis Celiac disease Other Cousin Relation Name Status Comments Father Alive Mother Alive Other Social History Tobacco Use Types Packs/Day Years Used Date Smoking Tobacco: Former Smokeless Tobacco: Never Alcohol Use Standard Drinks/Week Comments Yes 0 (1 standard drink = 0.6 oz pur e alcohol) Comments Unknown Sex and Gender Information Value Date Recorded Sex Assigned at Not on file Legal Sex Female 2:34 AM EST Gender Identity Not on file Sexual Orientation Not on file Obstetrics History Last Filed Vital Signs Vital Sign Reading Time Taken Comments Blood Pressure 124/80 09/21/2024 8:02 PM EST Pulse 66 09/21/2024 8:02 PM EST Temperature 36.7 ??C (98.1 ??F) 09/21/2024 8:02 PM ES T Respiratory Rate 16 09/21/2024 8:02 PM EST Oxygen Saturation 99% 09/21/2024 8:02 PM EST Inhaled Oxygen Concentration - - Weight 58.1 kg (128 lb) 09/21/2024 3:53 PM EST Height 154.9 cm (5' 1 ) 09/21/2024 3:53 PM EST Body Mass Index 24.19 09/21/2024 3:53 PM EST Plan of Treatment Health Maintenance Due Date Last Done Comments Breast Cancer Screening 1972 Hepatitis B Vaccines (1 of 3 - 19+ 3-dose series) 1991 Pneumococcal Vaccine: 50+ Years (2 of 2 - PCV) 04/03/2022 04/03/2021 Pneumococcal Vaccine: Pediatrics (0 to 5 Years) and At-Risk Patients (6 to 64 Years) (2 of 2 - PCV) 04/03/2022 04/03/2021 COVID-19 Vaccine (2023-2 5 season) 2024 02/21/2021, 01/31/2021 Cervical Cancer Screening: P ap Smear 08/27/2024 08/27/2021 Cholesterol Screening (Lipid Panel) 09/21/2024 Colorectal Cancer Screening: Colonoscopy 09/21/2024 Depression Screening 09/21/2024 HIV Screening 09/21/2024 Hepatitis C Screening 09/21/2024 Social Influencers of Health Screening 09/21/2024 Zoster Vaccines (2 of 2) 10/25/2024 08/30/2024 DTaP,Tdap,and Td Vaccines (2 - Td or Tdap) 11/05/2031 11/05/2021 Influenza Vaccine Completed 08/30/2024, 10/01/2022, 06/24/2017 HIB Vaccines Aged Out No longer eligi ble based on patient's age to complete this topic HPV Vaccines Aged Out No longer eligi ble based on patient's age to complete this topic Hepatitis A Vaccines Aged Out No long er eligible based on patient's age to complete this topic IPV Vaccines Aged Out No longer eligi ble based on patient's age to complete this topic MMR Vaccines Aged Out No longer eligi ble based on patient's age to complete this topic Meningococcal ACWY Vaccine Aged Out N o longer eligible based on patient's age to complete this topic Meningococcal B Vacine Aged Out No lo nger eligible based on patient's age to complete this topic RSV Immunization Patients Under 20 months Aged Out No longer eligible b ased on patient's age to complete this topic Varicella Vaccines Aged Out No longer eligible based on patient's age to complete this topic Procedures Procedure Name Priority Date/Time Associated Diagnosis Comments POCT GLUCOSE BLOOD Routine 09/21/2024 7: 43 PM EST RESPIRATORY VIRUS PANEL MOLECULAR STUDY STAT 09/21/2024 5:54 PM EST CBC WITH AUTO DIFFERENTIAL STAT 09/21/2024 4:49 PM EST BASIC METABOLIC PANEL STAT 09/21/2024 4:49 PM EST CBC AND DIFFERENTIAL STAT 09/21/2024 4:49 PM EST POCT GLUCOSE BLOOD Routine 09/21/2024 3: 47 PM EST from Last 3 Months Results * POCT Glucose, blood (09/21/2024 7:43 PM EST) Only the most recent of2 resultswithin the time period is included. [facility] Glucose POCT 77 70 - 100 mg/dL 09/21/2024 7:44 PM EST [facility] Blood Capillary blood specimen / Unknown 09/21/2024 7:43 PM EST 09/21/2024 7:45 PM EST us Silvio Crabtree DO LAB POINT OF CARE TE ST DOCKED DEVICE UNSOLICITED RESULTS Final Result [facility] [address] [place] [address], [place] [phone] * Respiratory virus panel molecular study (09/21/2024 5:54 PM EST) Adenovirus Detection by PCR Not Detected Not Detected LAB MICROBIOLOGY METHOD 09/21/2024 7:53 PM [facility] Influenza A PCR Not Detected Not Detected LAB MICROBIOLOGY METHOD 09/21/2024 7:53 PM [facility] Influenza B PCR Not Detected Not Detected LAB MICROBIOLOGY METHOD 09/21/2024 7:53 PM [facility] Coronavirus 229E Not Detected Not Detected LAB MICROBIOLOGY METHOD 09/21/2024 7:53 PM [facility] Coronavirus HKU1 Not Detected Not Detected LAB MICROBIOLOGY METHOD 09/21/2024 7:53 PM [facility] Coronavirus OC43 Not Detected Not Detected LAB MICROBIOLOGY METHOD 09/21/2024 7:53 PM [facility] Coronavirus NL63 Not Detected Not Detected LAB MICROBIOLOGY METHOD 09/21/2024 7:53 PM [facility] Parainfluenza Virus 1 Not Detected Not Detected LAB MICROBIOLOGY METHOD 09/21/2024 7:53 PM [facility] Parainfluenza Virus 2 Not Detected Not Detected LAB MICROBIOLOGY METHOD 09/21/2024 7:53 PM [facility] Parainfluenza Virus 3 Not Detected Not Detected LAB MICROBIOLOGY METHOD 09/21/2024 7:53 PM [facility] Parainfluenza Virus 4 Not Detected Not Detected LAB MICROBIOLOGY METHOD 09/21/2024 7:53 PM [facility] RSV PCR Not Detected Not Detected LAB MICROBIOLOGY METHOD 09/21/2024 7:53 PM [facility] Human Metapneumovirus A and B Not Detected Not Detected LAB MICROBIOLOGY METHOD 09/21/2024 7:53 PM [facility] Rhinovirus/Entero virus Not Detected Not Detected LAB MICROBIOLOGY METHOD 09/21/2024 7:53 PM [facility] Bordetella pertussis Not Detected Not Detected LAB MICROBIOLOGY METHOD 09/21/2024 7:53 PM EST [facility] Bordetella parapertussis Not Detected Not Detected LAB MICROBIOLOGY METHOD 09/21/2024 7:53 PM EST [facility] Mycoplasma pneumo by PCR Not Detected Not Detected LAB MICROBIOLOGY METHOD 09/21/2024 7:53 PM EST [facility] Chlamydia pneumoniae Not Detected Not Detected LAB MICROBIOLOGY METHOD 09/21/2024 7:53 PM EST [facility] SARS COV-2 Not Detected Not Detected LAB MICROBIOLOGY METHOD 09/21/2024 7:53 PM EST [facility] Swab Both anterior nares / Unknown Non-blood Collection / Unknown 09/21/2024 5:54 PM EST 09/21/2024 6:59 PM EST [facility] - 09/21/2024 7:53 PM EST Testing was performed using the [employer] Respiratory Pathogen PCR Assay. All results must be correlated with the clinical findings. Results should not be used as the sole basis for diagnosis. False Negative results may occur from the presence of sequence variants in the region targeted by the assay or the presence of inhibitors. Results may be affected by concurrent antiviral/antimicrobial therapy or levels of organisms that are below the limit of detection. Silvio Crabtree DO LAB MICROBIOLOGY - GENERAL ORD ERABLES Final Result [facility] [address] [place] [address], * CBC auto differential (09/21/2024 4:49 PM EST) WBC 8.3 4.8 - 10.8 K/mcL LAB HEMETOLOGY METHOD 09/21/2024 5:50 PM EST [facility] RBC 4.60 3.80 - 4.80 M/mcL LAB HEMETOLOGY METHOD 09/21/2024 5:50 PM EST [facility] Hemoglobin 13.2 11.5 - 16.0 g/dL LAB HEMETOLOGY METHOD 09/21/2024 5:50 PM EST [facility] Hematocrit 40.7 35.0 - 47.0 % LAB HEMETOLOGY METHOD 09/21/2024 5:50 PM [facility] MCV 88.9 79.0 - 98.0 FL LAB HEMETOLOGY METHOD 09/21/2024 5:50 PM [facility] MCH 28.8 27.0 - 32.0 pcg LAB HEMETOLOGY METHOD 09/21/2024 5:50 PM [facility] MCHC 32.4 32.0 - 37.0 g/dL LAB HEMETOLOGY METHOD 09/21/2024 5:50 PM [facility] RDW 12.3 11.0 - 15.0 % LAB HEMETOLOGY METHOD 09/21/2024 5:50 PM [facility] Platelets 237 130 - 400 K/mcL LAB HEMETOLOGY METHOD 09/21/2024 5:50 PM [facility] MPV 9.7 7.0 - 11.0 FL LAB HEMETOLOGY METHOD 09/21/2024 5:50 PM [facility] NRBC 0.0 <1.0 % LAB HEMETOLOGY METHOD 09/21/2024 5:50 PM [facility] NRBC Absolute 0.00 <0.10 K/mcL LAB HEMETOLOGY METHOD 09/21/2024 5:50 PM [facility] Neutrophils Relative 63.1 % LAB HEMETOLOGY METHOD 09/21/2024 5:50 PM [facility] Lymphocytes Relative 27.9 % LAB HEMETOLOGY METHOD 09/21/2024 5:50 PM [facility] Monocytes Relative 7.0 % LAB HEMETOLOGY METHOD 09/21/2024 5:50 PM [facility] Eosinophils Relative 1.6 % LAB HEMETOLOGY METHOD 09/21/2024 5:50 PM EST [facility] Basophils Relative 0.2 % LAB HEMETOLOGY METHOD 09/21/2024 5:50 PM EST [facility] Immature Granulocytes Relative 0.2 % LAB HEMETOLOGY METHOD 09/21/2024 5:50 PM EST [facility] Neutrophils Absolute 5.25 1.50 - 7.00 K/mcL LAB HEMETOLOGY METHOD 09/21/2024 5:50 PM EST [facility] Lymphocytes Absolute 2.32 1.00 - 5.00 K/mcL LAB HEMETOLOGY METHOD 09/21/2024 5:50 PM EST [facility] Monocytes Absolute 0.58 0.20 - 1.00 K/mcL LAB HEMETOLOGY METHOD 09/21/2024 5:50 PM EST [facility] Eosinophils Absolute 0.13 0.00 - 0.50 K/mcL LAB HEMETOLOGY METHOD 09/21/2024 5:50 PM EST [facility] Basophils Absolute 0.02 0.00 - 0.20 K/mcL LAB HEMETOLOGY METHOD 09/21/2024 5:50 PM EST [facility] Immature Granulocytes Absolute 0.02 0.00 - 0.03 K/mcL LAB HEMETOLOGY METHOD 09/21/2024 5:50 PM EST [facility] Blood Venous blood specimen / Unknown Venipuncture / Unknown 09/21/2024 4:49 PM EST 09/21/2024 5:39 PM EST us Silvio Crabtree DO LAB BLOOD ORDERABLES Final Res ult [facility] [address] [place] [address], * Basic metabolic panel (09/21/2024 4:49 PM EST) [facility] Sodium 138 133 - 145 mmol/L LAB CHEMISTRY METHOD 09/21/2024 6:00 PM [facility] Potassium 4.2 3.5 - 5.5 mmol/L LAB CHEMISTRY METHOD 09/21/2024 6:00 PM [facility] Chloride 105 96 - 110 mmol/L LAB CHEMISTRY METHOD 09/21/2024 6:00 PM [facility] CO2 27 21 - 32 mmol/L LAB CHEMISTRY METHOD 09/21/2024 6:00 PM [facility] Anion Gap 6 3 - 11 LAB CHEMISTRY METHOD 09/21/2024 6:00 PM [facility] Glucose 70 70 - 100 mg/dL LAB CHEMISTRY METHOD 09/21/2024 6:00 PM [facility] BUN 17 5 - 25 mg/dL LAB CHEMISTRY METHOD 09/21/2024 6:00 PM [facility] Creatinine 1.07 0.50 - 1.10 mg/dL LAB CHEMISTRY METHOD 09/21/2024 6:00 PM [facility] eGFR 63 >=60 mL/min/1. 73m2 LAB CHEMISTRY METHOD 09/21/2024 6:00 PM [facility] Comment:Calculation based on the??Chronic Kidney Disease Epidemiology Collaboration (CKD-EPI) equation refit??without adjustment for race. BUN/Creatinine Ratio 15.9 LAB CHEMISTRY METHOD 09/21/2024 6:00 PM [facility] Calcium 10.1 8.5 - 10.5 mg/dL LAB CHEMISTRY METHOD 09/21/2024 6:00 PM [facility] Blood Venous blood specimen / Unknown Venipuncture / Unknown 09/21/2024 4:49 PM EST 09/21/2024 5:39 PM EST us Silvio Crabtree DO LAB BLOOD ORDERABLES Final Res ult [facility] [address] [place] [address], from Last 3 Months Insurance [employer] Care Teams Monkey Keeper Relationship Specialty Start Date End Date Jovanni Fine PA PCP - General Physician Cloth Burler 09/21/24
--- OUTSIDE RECORDS SUMMARY | 2024-12-13 11:24 | XMS_ITS ---
Author Organization [facility] Address [address] [place] [id number] Care Team Providers Care Anesthesia Director Name Role Phone Jovanni Fine Primary Care Provider Unavailab Quan Hill Unavailable [phone] Allergies Allergen (clinical drug ingredient) Drug/Non Drug Allergy documented on EMR Reaction Allergy Type Onset Date Status Non-steroidal anti-inflammatory agent (FN) NSAIDs Unknown Drug Allergy Active sumatriptan Imitrex trouble swallowing Drug Allergy Active REASON FOR VISIT Patient presents today for a complications of sleeve Medications Medication SIG (Take, Route, Frequency, Duration) Notes Start Date End Date Status Escitalopram Oxalate Not-Taking Minoxidil Not-Taking Meclizine HCl Not-Ta antonio Omeprazole 20 MG 1 capsule Orally Onc e a day Not-Taking Colestipol HCl 1 GM TAKE 1 TABLET BY MOUTH TWICE A DAY FOR 30 DAYS for 90 as needed Not-Taking LORazepam 1 MG Oral for 10 Act khadra Ondansetron 4 MG Oral for 30 A ctive Ventolin HFA 108 (90 Base) MCG/ACT Inhalation for 30 as needed Active PriLOSEC OTC 20 MG 1 once or twice a day Active Zolpidem Tartrate Ac tive Loratadine as needed Active Fluticasone Propionate HFA as needed Active metFORMIN HCl ER Act khadra Immunizations Vaccine Route Administration Date Status Comme nts Influenza Unknown 07/23/2023 Refused Social History Tobacco Use: Social History Observation Description Date Details (start date - stop date) Never Smoker NA - NA Tobacco Use/Smoking Question Answer Notes Patient is a nonsmoker Section Notes: Nonsmoker and no sig. alcoho l Problems Problem Type SNOMED Code ICD Code Onset Dates Problem Status W/U Status Risk Notes Problem [id number] Gastroesophageal reflux disease without esophagitis (K21.9) Active confirmed Problem 008931759 Nausea (R11.0) Active confirmed Vital Signs Temperature 98.0 degrees Fahrenheit 07/23/20 23 Blood pressure systolic 000 mm Hg 07/23/20 23 Blood pressure diastolic 00 mm Hg 023 Height 62.25 in 07/23/2023 Weight 166 lbs 07/23/2023 BMI 30.12 kg/m2 07/23/2023 Encounters Encounter Location Date Provider Diagnosis [facility] [address] [place] [address] 07/23/2023 Quan Kilpatrick Gastroesophageal ref lux disease without esophagitis K21.9 ; Nausea R11.0 ; Encounter for screening for malignant neoplasm of colon Z12.11 and Family history of colon cancer Z80.0 Assessments Encounter Date Diagnosis (ICD Code) Assessment Notes Treatment Notes Treatment Clinical Notes Section Notes 07/23/2023 Gastroesophageal reflux disease without esophagitis (ICD-10 - K21.9) Do not take the Metformin on the morning of the upper endoscopy Overall, Javid appears well. She does not appear to be having any worrisome upper GI complaints at this time. I did review with her that I do think a lot of her current symptoms are probably in relation to her somewhat altered upper GI anatomy with her body and diet getting adjusted to this. However, given her concerns and the recommendation of her bariatric surgeon to have her undergo a repeat upper endoscopy, this will be scheduled for her for some time before her next scheduled appointment in [place] such that she can bring the records with her. We did review that it would be important to exclude any worsening esophagitis, any type of anastomotic inflammation or ulceration, or even an esophageal stricture. The procedure will be done with monitored anesthesia care. Full consent is obtained from her for the endoscopy, including risks of bleeding and perforation. I advised her to continue the Prilosec at least once a day but to certainly use it twice a day if need be. I did advise her not to use her metformin on the morning of the endoscopy. Javid was comfortable with this plan. Thank you again for allowing me to participate in Javid's care. I shall continue to keep you advised of her progress. 07/23/2023 Nausea (ICD-10 - R11.0) Overall, Javid appears well. She does not appear to be having any worrisome upper GI complaints at this time. I did review with her that I do think a lot of her current symptoms are probably in relation to her somewhat altered upper GI anatomy with her body and diet getting adjusted to this. However, given her concerns and the recommendation of her bariatric surgeon to have her undergo a repeat upper endoscopy, this will be scheduled for her for some time before her next scheduled appointment in [place] such that she can bring the records with her. We did review that it would be important to exclude any worsening esophagitis, any type of anastomotic inflammation or ulceration, or even an esophageal stricture. The procedure will be done with monitored anesthesia care. Full consent is obtained from her for the endoscopy, including risks of bleeding and perforation. I advised her to continue the Prilosec at least once a day but to certainly use it twice a day if need be. I did advise her not to use her metformin on the morning of the endoscopy. Javid was comfortable with this plan. Thank you again for allowing me to participate in Javid's care. I shall continue to keep you advised of her progress. 07/23/2023 Encounter for screening for malignant neoplasm of colon (ICD-10 - Z12.11) Overall, Javid appears well. She does not appear to be having any worrisome upper GI complaints at this time. I did review with her that I do think a lot of her current symptoms are probably in relation to her somewhat altered upper GI anatomy with her body and diet getting adjusted to this. However, given her concerns and the recommendation of her bariatric surgeon to have her undergo a repeat upper endoscopy, this will be scheduled for her for some time before her next scheduled appointment in [place] such that she can bring the records with her. We did review that it would be important to exclude any worsening esophagitis, any type of anastomotic inflammation or ulceration, or even an esophageal stricture. The procedure will be done with monitored anesthesia care. Full consent is obtained from her for the endoscopy, including risks of bleeding and perforation. I advised her to continue the Prilosec at least once a day but to certainly use it twice a day if need be. I did advise her not to use her metformin on the morning of the endoscopy. Javid was comfortable with this plan. Thank you again for allowing me to participate in Javid's care. I shall continue to keep you advised of her progress. 07/23/2023 Family history of colon cancer (ICD-10 - Z80.0) Overall, Javid appears well. She does not appear to be having any worrisome upper GI complaints at this time. I did review with her that I do think a lot of her current symptoms are probably in relation to her somewhat altered upper GI anatomy with her body and diet getting adjusted to this. However, given her concerns and the recommendation of her bariatric surgeon to have her undergo a repeat upper endoscopy, this will be scheduled for her for some time before her next scheduled appointment in [place] such that she can bring the records with her. We did review that it would be important to exclude any worsening esophagitis, any type of anastomotic inflammation or ulceration, or even an esophageal stricture. The procedure will be done with monitored anesthesia care. Full consent is obtained from her for the endoscopy, including risks of bleeding and perforation. I advised her to continue the Prilosec at least once a day but to certainly use it twice a day if need be. I did advise her not to use her metformin on the morning of the endoscopy. Javid was comfortable with this plan. Thank you again for allowing me to participate in Javid's care. I shall continue to keep you advised of her progress. Plan Of Treatment Treatment Notes Assessment Notes Gastroesophageal reflux dise ase without esophagitis Do not take the Metformin on the morning of the upper endoscopy Future Test Test Name Order Date UPPER GI ENDOSCOPY 07/23/2023 Next Appt Details Follow Up: prn, Reason: Progress Notes * SHANELL HELLERADOB: (53 yo F)Acc No.[id number]:07/23/2023 Progress Notes Patient:?AICHA HELLER RA Provider:?Quan Kilpatrick MD :1970???Age:53 Y???Sex:Female D ate:07/23/2023 Address:[address] [place], [place] [id number] Pcp:Jovanni Fine Subjective: * Chief Complaints: * ???Patient presents today fo r a complications of sleeve * HPI: ???incontinence:? I saw Javid in followup today in regard to her ongoing symptoms of reflux, intermittent dysphagia, occasional nausea and vomiting, and occasional abdominal discomfort. She was accompanied by her 4 month old grandson, Ramana. ?I last saw Javid in September of 2021, at which time she underwent an upper endoscopy and colonoscopy. The colonoscopy revealed only a hyperplastic polyp that was removed. However, the prep on that day was somewhat suboptimal and therefore I recommended she repeat the exam in 2024 rather than 2026. Her upper endoscopy revealed only a small hiatal hernia and some mild changes of reflux. There was no evidence of any esophagitis nor Gregory's esophagus. At that time she was on Prilosec and has basically continued that at least once a day. ?As you know, she underwent bariatric gastric sleeve surgery in September of this year at [facility]. She describes having lost at least 50 pounds since then and being able to decrease her diabetic regimen. However, she describes some increasing symptoms of reflux, intermittent postprandial nausea and vomiting, and intermittent dysphagia to solid food. She denies any hematemesis nor coffee grounds emesis. She does describe some issues with early satiety, although she is obviously aware that is the main purpose of her having had bariatric surgery. She describes that she does take her Prilosec every day but will take a second dose at least 2 or 3 times per week to help with increasing reflux symptoms. She advised me today that after reviewing the symptoms with the bariatric weight loss clinic in [place] they have recommended she undergo an upper endoscopy with me for reevaluation. ?She describes her bowel movements are occasionally constipated and she is no longer having the issue of diarrhea that had bothered her in the past. Therefore, she is no longer using the Colestid pills for their bile binding ability. ?She did bring me the pathology report from her gastric sleeve surgery in September. The portion of stomach that was removed showed only benign fundic-type gastric mucosa with some focal metaplasia but no evidence of any H. pylori nor dysplasia. * ROS:?General/Constitutional:?Change in appetite?denies.?Chills?denies.?Fatigue?denies.?Ophthalmologic:?Patient denies? Negative..?ENT:?Patient denies?Negative..?Respiratory:?Patient denies?No coughing/hemoptysis..?Cardiovascular:?Patient denies? No chest pain/orthopnea..?Gastrointestinal:?Comments?See HPI for details.?Genitourinary:?Patient denies? No dysuria/hematuria..?Incontinence?admits.?Musculoskeletal:?Admits?Painful joints,?Knee arthritis.?Skin:?Patient denies?No rash/pruritus..?Neurologic:?Patient denies? No headaches/seizures..?Psychiatric:?Patient complaining of? Depression.? * Medical History:? * Surgical History:?BTL, with subsequent reversal 2010Uterine Fibroid Tummy tuck Cholecystectomy with Dr. Erwin 02/2015Precancerous lesion removed from vulva 10/2017Right knee replacement in 09/[address] Vincent 09/2018Right hip replacement 06/2020Tonsillectomy Gastric sleeve 09/2022 at [facility] in [place]. She lost over 50 pounds as of the June, office visit. The pathology from the gastric resection showed only benign fundic-type gastric mucosa with some focal metaplasia but no dysplasia nor H. pylori. * Hospitalization/Major Diagno stic Procedure:? * Family History:?Father: dari chino?Mother: alive, dx in her early 50, diagnosed with Colon cancer, Diabetes, HTN (hypertension).? The patient's mother has a history of gallstones and kidney stones. * Social History:?Tobacco Use:?Tobacco Use/Smoking?Patient is a?nonsmoker.?Drugs/Alcohol:?Alcohol Screen?Points: 1, Interpretation: Negative.?Miscellaneous:?Marital status: single. 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 ???Nonsmoker and no sig. alcohol. * Medications:?TakingLoratadin e , Notes: as neededPriLOSEC OTC 20 MG Tablet Delayed Release 1 once or twice a dayZolpidem Tartrate metFORMIN HCl ER Fluticasone Propionate HFA , Notes: as neededVentolin HFA 108 (90 Base) MCG/ACT Aerosol Solution Inhalation , Notes: as neededLORazepam 1 MG Tablet Oral Ondansetron 4 MG Tablet Disintegrating Oral Taking Loratadine , Notes: as neededTaking PriLOSEC OTC 20 MG Tablet Delayed Release 1 once or twice a dayTaking Zolpidem Tartrate Taking metFORMIN HCl ER Taking Fluticasone Propionate HFA , Notes: as neededTaking Ventolin HFA 108 (90 Base) MCG/ACT Aerosol Solution Inhalation , Notes: as neededTaking LORazepam 1 MG Tablet Oral Taking Ondansetron 4 MG Tablet Disintegrating Oral Not-Taking/PRNOmeprazole 20 MG Capsule Delayed Release 1 capsule Orally Once a dayColestipol HCl 1 GM Tablet TAKE 1 TABLET BY MOUTH TWICE A DAY FOR 30 DAYS , Notes: as neededMinoxidil Meclizine HCl Escitalopram Oxalate Not-Taking/PRN Omeprazole 20 MG Capsule Delayed Release 1 capsule Orally Once a dayNot-Taking/PRN Colestipol HCl 1 GM Tablet TAKE 1 TABLET BY MOUTH TWICE A DAY FOR 30 DAYS , Notes: as neededNot-Taking/PRN Minoxidil Not-Taking/PRN Meclizine HCl Not-Taking/PRN Escitalopram Oxalate DiscontinuedJanuvia Dicyclomine HCl 10 MG Capsule 1-2 capsules Orally Four times a day prn abdominal bloating, cramps, discomfort, Notes: as neededLisinopril 2.5 MG Tablet Oral B-6 250 MG Tablet Oral Topiramate 50 MG Tablet Oral Medication List reviewed and reconciled with the patientDiscontinued Januvia Discontinued Dicyclomine HCl 10 MG Capsule 1-2 capsules Orally Four times a day prn abdominal bloating, cramps, discomfort, Notes: as neededDiscontinued Lisinopril 2.5 MG Tablet Oral Discontinued B-6 250 MG Tablet Oral Discontinued Topiramate 50 MG Tablet Oral Medication List reviewed and reconciled with the patient * Allergies:?Imitrex: trouble swallowingNSAIDsyes[Allergies Verified] Objective: * Vitals:?Wt: 166 lbs, Ht: 62. 25 in, BMI:30.12 Index, BP: 000/00 mm Hg, Temp: 98.0. * Examination: ???General Examination: ?GENERAL APPEARANCE:?pleasant, well nourished, well developed, in no acute distress.?EYES:?sclera non-icteric.?ORAL CAVITY:?mucosa moist.?NECK/THYROID:?no cervical lymphadenopathy, neck supple.?SKIN:?nonjaundiced, no spider angiomata..?HEART:?S1, S2 normal.?LUNGS:?clear to auscultation bilaterally.?ABDOMEN:?normal bowel sounds, no guarding or rigidity, no hepatosplenomegaly, no masses palpable, soft, nontender, nondistended..?EXTREMITIES:?no edema.?NEUROLOGIC:?alert and oriented.? Assessment: * Assessment: 1.?Gastroesophageal reflux d isease without esophagitis - K21.9 (Primary)?2.?Nausea - R11.0?3.?Encounter for screening for malignant neoplasm of colon - Z12.11?4.?Family history of colon cancer - Z80.0? Overall, Javid appears well. She does not appear to be having any worrisome upper GI complaints at this time. I did review with her that I do think a lot of her current symptoms are probably in relation to her somewhat altered upper GI anatomy with her body and diet getting adjusted to this. However, given her concerns and the recommendation of her bariatric surgeon to have her undergo a repeat upper endoscopy, this will be scheduled for her for some time before her next scheduled appointment in [place] such that she can bring the records with her. We did review that it would be important to exclude any worsening esophagitis, any type of anastomotic inflammation or ulceration, or even an esophageal stricture. The procedure will be done with monitored anesthesia care. Full consent is obtained from her for the endoscopy, including risks of bleeding and perforation. I advised her to continue the Prilosec at least once a day but to certainly use it twice a day if need be. I did advise her not to use her metformin on the morning of the endoscopy. Jaivd was comfortable with this plan. Thank you again for allowing me to participate in Javid's care. I shall continue to keep you advised of her progress. Plan: * Treatment: Notes: Do not take the Metformin on the morning of the upper endoscopy.?? 2.?Nausea?Procedure: UPPER GI ENDOSCOPY (Ordered for 07/23/2023)* with MACsched for 08/05/23 at 7:30 am * Immunizations:? Influenza (Not administered - Refused: Patient decision) * Procedure Codes:?3017F COLOR ECTAL CA SCREEN DOC BVV9002C TOBACCO NON-[id number] BP SCR NOT PRFRM REC REASON NOS * Preventive Medicine:? ??Counseling:?Care goal follow-up plan:?Above Normal BMI Follow-up?Giving encouragement to exercise,?BMI management provided?Yes.? * Follow Up:?prn * * Sign off status: Completed true * Provider:?Quan Kilpatrick MD Date:? 023 Generated for Oly ott/Ector/eTransmitting on:?12/13/2024 11:24 AM EDT History and Physical Notes * HPI (History of Present Illness) Category Sub-Category Detail Notes Category Not es incontinence I saw Javid in followup today in regard to her ongoing symptoms of reflux, intermittent dysphagia, occasional nausea and vomiting, and occasional abdominal discomfort. She was accompanied by her 4 month old grandson, Ramana. I last saw Javid in September of 2021, at which time she underwent an upper endoscopy and colonoscopy. The colonoscopy revealed only a hyperplastic polyp that was removed. However, the prep on that day was somewhat suboptimal and therefore I recommended she repeat the exam in 2024 rather than 2026. Her upper endoscopy revealed only a small hiatal hernia and some mild changes of reflux. There was no evidence of any esophagitis nor Gregory's esophagus. At that time she was on Prilosec and has basically continued that at least once a day. As you know, she underwent bariatric gastric sleeve surgery in September of this year at [facility]. She describes having lost at least 50 pounds since then and being able to decrease her diabetic regimen. However, she describes some increasing symptoms of reflux, intermittent postprandial nausea and vomiting, and intermittent dysphagia to solid food. She denies any hematemesis nor coffee grounds emesis. She does describe some issues with early satiety, although she is obviously aware that is the main purpose of her having had bariatric surgery. She describes that she does take her Prilosec every day but will take a second dose at least 2 or 3 times per week to help with increasing reflux symptoms. She advised me today that after reviewing the symptoms with the bariatric weight loss clinic in [place] they have recommended she undergo an upper endoscopy with me for reevaluation. She describes her bowel movements are occasionally constipated and she is no longer having the issue of diarrhea that had bothered her in the past. Therefore, she is no longer using the Colestid pills for their bile binding ability. She did bring me the pathology report from her gastric sleeve surgery in September. The portion of stomach that was removed showed only benign fundic-type gastric mucosa with some focal metaplasia but no evidence of any H. pylori nor dysplasia. Examination Category Sub-Category Detail Notes Category Not es General Examination GENERAL APPEARANCE: pleasant , well nourished, well developed, in no acute distress EYES: sclera non-icteric NECK/THYROID: no cervical lymphade nopathy, neck supple HEART: S1, S2 normal LUNGS: clear to auscultatio n bilaterally ABDOMEN: normal bowel sounds, no guarding or rigidity, no hepatosplenomegaly, no masses palpable, soft, nontender, nondistended. NEUROLOGIC: alert and oriented SKIN: nonjaundiced, no spi avelino angiomata. EXTREMITIES: no edema ORAL CAVITY: mucosa moist
--- OUTSIDE RECORDS SUMMARY | 2024-12-13 11:24 | XMS_ITS ---
Author Organization [facility] Address [address] [place] [phone] Care Team Providers Care Golf Course Patroller Name Role Phone Jovanni Fine Primary Care Provider Unavailab Quan Hill Unavailable [phone] REASON FOR VISIT gerd,nausea Problems Problem Type SNOMED Code ICD Code Onset Dates Problem Status W/U Status Risk Notes Problem Gastroesophageal reflux disease (575727746) Esophageal reflux disease (K21.9) Active confirmed Problem Gastritis (0612660) Gastritis (K29.70) Active confirmed Problem History of gastrointestinal tract bypass (037761719) Intestinal bypass and anastomosis status (Z98.0) Active confirmed Encounters Encounter Location Date Provider Diagnosis [facility] [address] [place] [phone] 08/05/2023 Quan Kilpatrick Esophageal reflux disease K21.9 ; Hiatal hernia K44.9 ; Gastritis K29.70 ; Intestinal bypass and anastomosis status Z98.0 and Nausea R11.0 Assessments Encounter Date Diagnosis (ICD Code) Assessment Notes Treatment Notes Treatment Clinical Notes Section Notes 08/05/2023 Esophageal reflux disease (ICD-10 - K21.9) 08/05/2023 Hiatal hernia (ICD-10 - K44.9) 08/05/2023 Gastritis (ICD-10 - K29.70) 08/05/2023 Intestinal bypass and anastomosis status (ICD-10 - Z98.0) 08/05/2023 Nausea (ICD-10 - R11.0) Plan Of Treatment No Information Progress Notes * URSULA HELLER: (54 yo F)Acc No.[id number]:08/05/2023 EGD/MAC Patient:?AICHA HELLER RA Provider:?Quan Kilpatrick MD :1970???Age:53 Y???Sex:Female D ate:08/05/2023 Address:[address] [place] [address] Pcp:Jovanni Fine Subjective: * Chief Complaints: * ???1. Gerd,nausea. * Medical History:? Objective: * Vitals:? Assessment: * Assessment: 1.?Esophageal reflux disease - K21.9 (Primary)???2.?Hiatal hernia - K44.9???3.?Gastritis - K29.70???4.?Intestinal bypass and anastomosis status - Z98.0???5.?Nausea - R11.0??? Plan: * Treatment: * Procedure Codes:?22194 UPPER GI ENDOSCOPY, BIOPSY * * The named appointment provid er may or may not be the originator of this progress note, and it is not deemed complete until electronically signed by the appointment provider. Sign off status: Pending * Provider:?Quan Kilpatrick MD Date:? 023 Generated for Oly ott/Ector/Luis Carlossmitting on:?12/13/2024 11:24 AM EDT
== END 2024-12-13 11:16 | disposition home or self-care (01) ==
LOC: HO.HMCH 09:58
PROVIDERS: PCP Physician Assistant; Visit Provider Physician Assistant
DX: E11.42 Type 2 diabetes mellitus with diabetic polyneuropathy (principal); M87.051 Idiopathic aseptic necrosis of right femur; F41.1 Generalized anxiety disorder; E03.9 Hypothyroidism, unspecified

== ENCOUNTER → 2024-12-13 12:21 | Outpatient (BNV) | payer OTHER, SELFPAY | PROVIDERS: PCP Physician Assistant; Visit Provider Radiology Diagnostic Radiology | DX: M87.051 Idiopathic aseptic necrosis of right femur (principal); Z96.641 Presence of right artificial hip joint | CPT/HCPCS: 73502 ==

== ENCOUNTER 2025-02-01 09:26 | Outpatient (AMB) | payer OTHER, SELFPAY ==
--- NOTE | 2025-02-01 09:32 | A.OFFPC_ITS ---
Vital Signs 3 02/01/25 09:37 Height 5 ft 1 in Weight 133 lb 6 oz BMI 25.2 BP 94/62 Blood Pressure Location Lt brachial Position Sitting Pulse 78 Pulse Source Pulse Oximeter Temp 97.3 F Temp Source Temporal Artery Scan Pulse Oximetry (%) 98 Oxygen Delivery Method Room Air Intake Visit Reasons: f/u weight check Sports Cartoonist Required: No Accompanied by: Self / Same As Patient Allergies sumatriptan [From Imitrex] Allergy (Unknown, Verified 02/01/25 09:42) Throat tightness Medication List - Last Reconciled 02/01/25 by Jovanni Fine PA-C acetaminophen-caffeine 500-65 mg (Excedrin Tension Headache) 1 tab PO Q12H 7 days albuterol sulfate 2.5 mg (3 mL) inhalation Q6H 30 days albuterol sulfate 90 mcg/actuation (Ventolin HFA) 2 puffs inhalation Q4-6H PRN alcohol swabs (Alcohol Pads) 1 pad topical .once per day blood sugar diagnostic (FreeStyle Lite Strips) 1 strip miscellaneous DAILY 30 days blood-glucose meter (FreeStyle [place] kit) As directed fluticasone propionate 50 mcg/actuation 2 sprays intranasal DAILY 30 days hydroxyzine HCl 25 - 50 mg PO DAILY PRN lactulose 20 grams (30 mL) PO BID PRN 15 days lancets (FreeStyle Lancets) As directed loratadine 10 mg PO DAILY PRN lorazepam 1 tab PO DAILY PRN magnesium oxide 250 mg PO BID 30 days metformin 1,000 mg PO DAILY omeprazole 40 mg PO DAILY ondansetron 4 mg PO TID PRN 14 days riboflavin (vitamin B2) (Vitamin B-2) 50 mg PO DAILY tirzepatide (Mounjaro) 10 mg (0.5 mL) subcut QWEEK 4 weeks tirzepatide (Mounjaro) 7.5 mg (0.5 mL) subcut QWEEK 4 weeks tirzepatide (Mounjaro) 5 mg (0.5 mL) subcut QWEEK 4 weeks zolpidem 10 mg PO BEDTIME PRN Tobacco use date assessed: 02/01/25 Dental Screening Dental Screen Date: 02/01/25 Did you have a dental visit in the last 12 months?: Yes Did you have a dental problem in the last 6 months where you did not have access to dental care?: No Was dental information given to patient?: Patient has dentist HPI f/u weight check 2 HPI0 Details Patient is a 54-year-old female here today for? a follow-up visit. Patient has a past medical history of type 2 diabetes, obesity (status post bariatric surgery) ,avascular necrosis of bilateral hips. Menopause/ vasomotor symptoms: She also reports having hot flashes at night to which she contributes to menopause. She would like to establish care with a new pipe organ tuner and repairer in the area. She has been trying the black cohosh though does not seem to be helpful for her menopause. We did discuss trying fluoxetine she has upcoming appointment with pipe organ tuner and repairer in February of 2025 and will discuss her vasomotor menopause symptoms. .. Status post bariatric sleeve has lost significant amount of weight, did have some complications with nausea and up a gastric pain. She continues to follow bariatric program at [facility], continues to follow bariatric diet and is physically active at the gym several days a week. She has followed up with her bariatric surgeon whom will be sending her for labs to check vitamin levels ect.. We continue obesity management combined with diabetes care. There is an active discussion regarding her current weight management using Mounjaro, with concerns over the balance between excessive weight loss and regain. She has maintained her current weight through medication but noticed increased hunger when the dose was reduced. The goal remains to maintain her weight without medication gradually. She has additional concerns about excess skin post-surgery and desires consultation with a plastic surgeon for possible abdominoplasty due to discomfort and skin fold infections. We plan to reduce her monjauro to 2.5 mg weekly . Type 2 diabetes: Has discontinued metformin and continues on GLP 1 for glycemic control and weight loss. Most recent A1c at 4.8 Laboratory Tests 05/30/24 08/30/24 12/13/24 11:45 10:24 12:18 Hgb A1c (Clinic) 4.8 Hemoglobin A1c % 4.9 Cholesterol 233 H LDL Cholesterol, C alc 133 H Vitamin B12 1030 H 25-OH Vitamin D To kianna 35.5 TSH 1.36 Serum Copper 135 RBC Copper 0.90 PFSH Medical History Urinary incontinence HTN (hypertension) Hiatal hernia Depression Breast calcification, right Hypercholesteremia Snores COVID-19 vaccine series completed Personal history of COVID-19 IBS (irritable bowel syndrome) Neuropathy Family history of colon cancer Bacteremia due to Escherichia coli Type 2 diabetes mellitus Chronic, continuous use of opioids Chronic pain syndrome Surgical History History of esophagogastroduodenoscopy (EGD) H/O colonoscopy History of cholecystectomy S/P gastric sleeve procedure Hx of cystoscopy History of knee replacement, total S/P total hip arthroplasty H/O abdominoplasty Kidney stones H/O removal of cyst History of reversal of tubal ligation History of bilateral tubal ligation Hx of tonsillectomy Fibroids Family History Father High cholesterol Mother Colon cancer Cancer Mental problem Maternal Grandmother Diabetes Maternal Grandfather Diabetes Paternal Grandmother No problems noted. Paternal Grandfather No problems noted. 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 Cognitive needs: No Hearing needs: No Vision needs: No Female Reproductive History Menstrual Age of Menarche: 13 Questionnaire PHQ-9 Over the last 2 weeks, how often have you been bothered by any of the following problems? 1. Little interest or pleasure in doing things: not at all 2. Feeling down, depressed, or hopeless: not at all 3. Trouble falling or staying asleep, or sleeping too much: nearly every day 4. Feeling tired or having little energy: more than half the days 5. Poor appetite or overeating: not at all 6. Feeling bad about yourself - or that you are a failure or have let yourself or your family down: not at all 7. Trouble concentrating on things, such as reading the newspaper or watching television: not at all 8. Moving or speaking so slowly that other people could have noticed. Or the opposite - being so fidgety or restless that you have been moving around a lot more than usual: not at all 9. Thoughts that you would be better off or of hurting yourself in some way: not at all Total score: 5 Depression Screening Interpretation: Positive Depression Screening Follow-up: Existing condition Depression Screening Done: Yes 38439 - PHQ-9 Billing: Yes Source: Developed by Drs. Quan Cagle, Jessica Rios, Aristeo Fraga and colleagues, with an educational faye from [employer]oe [employer]. Thrive Questionnaire Date Thrive assessed: 02/01/25 I am a: Patient What is your living situation today?: I have a steady place to live Within the past 12 months, did the food you bought not last and you didn't have the money to get more?: Never true Within the past 12 months, did you worry whether your food would run out before you got money to buy more?: Sometimes True Do you have trouble paying for medicines?: No Do you have trouble getting transportation to medical appointments?: No Do you have trouble paying your heating and electricity bill?: No Do you have trouble taking care of your child, family member or friend?: No Do you have trouble with day-to-day activities such as bathing, preparing meals, shopping, managing finances, etc.?: No Are you currently unemployed and looking for a job?: No Are you interested in more education?: Yes Please select the resources that you would like help with: None Currently or been in a relationship where the following occur: No concerns reported THRIVE Score: 1 AUDIT C Alcohol Use Questionnaire (AUDIT-C) 1. How often do you have a drink containing alcohol?: Monthly or less 2. How many drinks containing alcohol do you have on a typical day when you are drinking?: 1 or 2 3. How often do you have six or more drinks on one occasion?: Never Total Score: 1 ANUM-7 AMB Questionnaire ANUM-7 Date ANUM - 7 assessed: 02/01/25 Feeling nervous, anxious, or on edge: 3 = Nearly every day Not being able to stop or control worryin = Several days Worrying too much about different things: 1 = Several days Trouble relaxin = Several days Being so restless that it is hard to sit still: 0 = Not at all Becoming easily annoyed or irritable: 1 = Several days Feeling afraid as if something awful might happen: 1 = Several days Total ANUM-7 score (0-4 normal; 5-9 mild; 10-14 moderate; 15-21 severe): 8 Source: Developed by Drs. Quan Cagle, Jessica Rios, Aristeo Fraga and colleagues, with an educational faye from [employer]oe [employer]. ANUM-7 Assessment Billing ANUM-7 Assessment Tool: ANUM-7 Assessment 94600 Review of Systems Const Denies headache(s) Eyes Denies loss of vision ENT Denies vertigo, Denies dizziness, Denies headache(s) and Denies sore throat Card Denies chest pain, Denies leg edema and Denies lightheadedness Resp Denies cough, Denies hemoptysis and Denies wheezing GI Denies abdominal pain, Denies melena, Denies constipation, Denies diarrhea and Denies vomiting Denies urinary frequency, Denies dysuria and Denies urinary urgency Musc Denies arthralgias, Denies joint swelling, Denies numbness and Denies tingling Neuro Denies Abnormal speech present, Denies behavioral changes, Denies vertigo, Denies dizziness, Denies headache(s), Denies loss of vision, Denies memory loss, Denies numbness and Denies tingling Psych Denies anxiety, Denies behavioral changes, Denies depression, Denies memory loss and Denies panic attacks Reddy/Lymph Denies easy bleeding and Denies easy bruising Aller/Immun Denies wheezing Physical exam (Primary Care) Vital Signs: Last Vital Signs Temp 97.3 F 02/01/25 09:37 Pulse 78 02/01/25 09:37 BP 94/62 02/01/25 09:37 Pulse Ox 98 02/01/25 09:37 Oxygen Delivery Method Room Air 02/01/25 09:37 BMI result Body Mass Index 25.2 Tobacco/Smoking Status: Tobacco use Status Tobacco use date assessed 02/01/25 02/01/25 09:38 Patient Tobacco Use Status Never used Tobacco 02/01/25 09:32 e-Cigarette/Vaping Use Never Used 02/01/25 09:32 PHQ-9: PHQ-9 Score PHQ-9: Total score 5 02/01/25 09:44 Depression Screening Interpretation: Positive Depression Screening Follow-up: Existing condition Thrive Assessment: Date of Thrive Assessment Date Thrive assessed 02/01/25 02/01/25 09:38 Currently or been in a relationship where the following occur: No concerns reported Const General: healthy appearing, no acute distress, alert and awake Nutritional Appearance: well nourished Orientation/consciousness: oriented to person, oriented to place and oriented to time HENMT Ears: TM's normal bilaterally General nose exam: Normal nasal mucous membranes and turbinates present Eyes Conjunctivae: conjunctivae normal Sclerae: sclerae normal Pupils: Equal, round and reactive pupils present Neck Neck: Yes no lymphadenopathy and Yes no JVD Thyroid: Thyroid normal Carotids: no bruits Resp Effort & Inspection: normal respiratory effort and not tachypneic Auscultation: no crackles, no rales, no rhonchi and no wheezes Cardio Rate: regular rate Rhythm: regular rhythm Heart sounds: no murmurs and normal S1 and S2 GI Palpation (GI): Soft to palpation, nontender, no hepatomegaly and no splenomegaly Auscultation: normal bowel sounds Abdomen image: 2 1. NOTABLE EXCESS SKIN OVER THE LOWER ABDOMEN. Skin General skin exam: no rashes or lesions noted and dry skin Neuro General: oriented to person, oriented to place and oriented to time Cranial nerves: Yes Equal, round and reactive pupils present Speech: No Abnormal speech present Gait exam (Neuro): Normal gait present Motor exam (neuro): no tremor noted Extrem Right upper extremity: full ROM Left upper extremity: full ROM Right lower extremity: full ROM; no edema Left lower extremity: full ROM; no edema Psych Mental Status: mental status grossly normal Speech and movement: Normal speech and movement present Affect: normal affect Attitude: cooperative Thought process: Normal thought process present Coding Level of Care Code Est Pt Level 4 (86434) Diagnoses Type 2 diabetes mellitus with diabetic polyneuropathy, without long-term current use of insulin E11.42 Diabetes mellitus complication detail: with polyneuropathy Diabetes mellitus complication status: with neurologic complications Diabetes mellitus assisted insulin use: without marine oil terminal superintendent use Avascular necrosis of bone of right hip M87.051 Excess skin of abdomen L98.7 Additional Codes ANUM-7 Assessment Billing - ANUM-7 Assessment Tool: ANUM-7 Assessment 82108 ([id number]) PHQ-9 - 74029 - PHQ-9 Billing: Yes ([id number]) Assessment & Plan Assessment & Plan (1) DMII (diabetes mellitus, type 2): Code(s): E11.9 - Type 2 diabetes mellitus without complications Category: Medical Qualifiers: Diabetes mellitus complication detail: with polyneuropathy Diabetes mellitus complication status: with neurologic complications Diabetes mellitus assisted insulin use: without assisted use Qualified Code(s): E11.42 - Type 2 diabetes mellitus with diabetic polyneuropathy Plan: Patient's type 2 diabetes well controlled. Continues on GLP 1 with good effect. She has lost significant amount of weight since using GL P1. . Will decrease her tirzepatide dose to 2.5 mg weekly. Ongoing glucose monitoring and emphasis on dietary management is prioritized. Upcoming fasting bloodwork, including A1c, will guide any future changes in management. Goal A1c is to remain below 6.5 (2) Avascular necrosis of bone of right hip: Code(s): M87.051 - Idiopathic aseptic necrosis of right femur Category: Medical Plan: Most recent x-ray of right hip without any hardware malalignment. She continues to have some hip pain particularly when sitting for long periods of time. We discuss possible need for another round of physical therapy to help with the soft tissue and ligaments of the surrounding hip. She is considering physical therapy to help the soft tissues. (3) Excess skin of abdomen: Code(s): L98.7 - Excessive and redundant skin and subcutaneous tissue Category: Medical Plan: Patient would like to discuss an abdominoplasty with plastic surgeon. Did have bariatric surgery 2 years ago and has been able to maintain her weight loss with the BMI at 25. She often does get skin fold rashes and infections in his interested in clearing this up with the an abdominoplasty. Will refer to Plastic surgery. Orders: Orders 2 TSH reflex Free T4 Today E03.9 - Hypothyroidism, unspecified Comprehensive [place]. Panel Fast Today E11.42 - Type 2 diabetes mellitus with diabetic polyneuropathy Complete Blood Count no Diff Today E11.42 - Type 2 diabetes mellitus with diabetic polyneuropathy Lipid Panel Today E78.00 - Pure hypercholesterolemia, unspecified IRON PROFILE Today D50.9 - Iron deficiency anemia, unspecified Referrals 2 Plastic Surgery Referral L98.7 - Excessive and redundant skin and subcutaneous tissue Medications: New 2 tirzepatide for 4 weeks 2.5 mg (0.5 mL) subcut QWEEK 2 mL 3RF 4 weeks E11.42 - Type 2 diabetes mellitus with diabetic polyneuropathy On Hold 2 tirzepatide (Mounjaro) Hold Comment: Doctor's Order 5 mg (0.5 mL) subcut QWEEK 4 weeks 2 mL 0RF E11.42 - Type 2 diabetes mellitus with diabetic polyneuropathy
[2025-02-01 09:37] VITALS: BP 94/62; PULSE 78; TEMP 36.3; O2SAT 98; BMI 25.2
--- OUTSIDE RECORDS SUMMARY | 2025-02-01 10:08 | XMS_ITS | Clinical Summary ---
Author Organization [facility] Address [address] [place] [phone] Phone Care Team Providers Care Horse Race Timer Name Role Phone Jovanni Fine Primary Care Provider [phone] Allergies Active Allergy Reactions Criticality Noted Date Comments Nsaids (Non-Steroidal Anti-I nflammatory Drug) Angioedema High 09/28/2021 Sumatriptan Rash High 09/21/2024 Medications metFORMIN (GLUCOPHAGE) 1,000 mg tablet Take 1 tablet (1,000 mg total) by mouth 1 (one) time each day with breakfast. 02/16/2022 Active Surgical History Surgery Date Site/Laterality Comments OTHER SURGICAL HISTORY 2009 PROCEDURE: [place] MYOMECTOMY 1-4 MYOMAS W/250 GM/< ABDOMINAL APPR CHOLECYSTECTOMY 02/2015 PROCEDURE: HISTORICAL CHOLECYSTECTOMY BELT ABDOMINOPLASTY PROCEDURE: HISTORICAL TUMMY TUCK OTHER SURGICAL HISTORY 10/2017 PROCEDURE: [place] VULVECTOMY SIMPLE PARTIAL; COMMENT: carcinoma in situ, done at [facility] TOTAL KNEE ARTHROPLASTY 10/04/2018 Right PROCEDURE: [place] ARTHRP KNE CONDYLE&PLATU MEDIAL&LAT COMPARTMENTS COLONOSCOPY 04/24/2016 PROCEDURE: OUTSIDE COLONOSCOPY; COMMENT: Diverticulosis,Normal, Repeat 5 yrs COLONOSCOPY 07/18/2012 PROCEDURE: OUTSIDE COLONOSCOPY; COMMENT: tubular adenoma, diverticulosis, repeat 5 yrs OTHER SURGICAL HISTORY 12/13/2015 PROCEDURE: OUTSIDE ENDOSCOPY; COMMENT: mild chronic esophagitis TUBAL LIGATION PROCEDURE: HISTORICAL TUBAL LIGATION OTHER SURGICAL HISTORY PROCEDURE: [place] UNLISTED LAPAROSCOPY PROCEDURE OVIDUCT OVARY; COMMENT: Tubal [...] 2 - PCV) 04/03/2022 04/03/2021 COVID-19 Vaccine (3 - 2023-2 5 season) 2024 02/21/2021, 01/31/2021 Cervical Cancer [...] age to complete this topic Meningococcal B Vaccine Aged Out No l onger eligible based on patient's age to complete this topic RSV Immunization Patients Under 20 months Aged Out No longer eligible b ased on patient's age to complete this topic Varicella Vaccines Aged Out No longer eligible based on patient's age to complete this topic Insurance [employer] Care Teams Horse Race Timer Relationship Specialty Start Date End Date Jovanni Fine PA PCP - General Physician Security Installation Technician 09/21/24
--- OUTSIDE RECORDS SUMMARY | 2025-02-01 10:09 | XMS_ITS | Patient Health Record ---
Author Organization [facility] Address [address] [place] [phone] Care Team Providers Care Electrician Substation Supervisor Name Role Phone Jovanni Fine Primary Care Provider Quan Aquino Unavailable [phone] Allergies Allergen (clinical drug ingredient) Drug/Non Drug [...] W/U Status Risk Notes Problem Esophageal reflux (290060924) Esophageal reflux (K21.9) Active confirmed Problem 334780234 Encounter for screening for malignant neoplasm of colon (Z12.11) Active confirmed Problem 996206881 History of adenomatous polyp of colon (Z86.010) Active confirmed Problem 52130447 Diarrhea (R19.7) Active confirmed Problem 396659139 Irritable bowel syndrome with diarrhea (K58.0) Active confirmed Problem 359898077 Nausea (R11.0) Active confirmed Problem History of gastrointestinal tract bypass (252336936) Intestinal bypass and anastomosis status (Z98.0) Active confirmed Problem 307237256 Gastroesophageal reflux disease without esophagitis (K21.9) Active confirmed Problem 505226316 Gastroesophageal reflux disease, esophagitis presence not specified (K21.9) Active confirmed Problem 727384472 Family history o f colon cancer (Z80.0) Active confirmed Problem Gastritis (9005890) Gastritis (K29.70) Active c onfirmed Problem Esophageal reflu x disease (K21.9) Active confirmed Problem Diverticular disease of colon (312041661) Colon, diverticulosis (K57.30) Active confirmed Plan Of Treatment Future Test Test Name Order Date COLONOSCOPY 02/06/2016 UPPER GI ENDOSCOPY 09/18/2021 COLONOSCOPY 09/18/2021 UPPER GI ENDOSCOPY 07/23/2023 Insurance Providers Payer Name Payer Address Payer Phone Subscriber Number Group Number Insured Name Patient Relationship to Insured Coverage Start Date Coverage End Date [facility] [address] [place] [phone] [id number] JAVID AVILA Self - patient is the insured Medical (General) History Medical History History ICD Code Depression Avascular necrosis of hips Denies MS,CVA,renal disease Colonoscopy in 06/2012-1 tub ular adenoma [...] is currently be ing seen at the [facility] weight loss center in [place] NIDDM improved after her bar iatric surgery in September of 2022--she lost over 50 pounds Asthma Hypertension Urinary incontinence Urosepsis 07/2020 at [facility] Upper endoscopy in September with the [...] replacement 06/2020 Tonsillectomy Gastric sleeve 09/2022 at [facility] in [place]. She lost over 50 pounds as of the June, office visit. The pathology from the gastric resection showed only benign fundic-type gastric mucosa with some focal metaplasia but no dysplasia nor H. pylori.
--- OUTSIDE RECORDS SUMMARY | 2025-02-01 10:09 | XMS_ITS ---
Author Organization [facility] Address [address] [place] [phone] Care Team Providers Care Core Layer Machine Operator Name Role Phone Jovanni Fine Primary Care Provider Unavailab Quan Hill Unavailable [phone] REASON FOR VISIT gerd,nausea Problems Problem Type SNOMED Code ICD Code Onset Dates Problem Status W/U Status Risk Notes Problem Gastroesophageal reflux disease (589749369) Esophageal reflux disease (K21.9) Active confirmed Problem Gastritis (7704910) Gastritis (K29.70) Active confirmed Problem History of gastrointestinal tract bypass (505774451) Intestinal bypass and anastomosis status (Z98.0) Active confirmed Encounters Encounter Location Date Provider [place] [facility] [place] [address] [place] [phone] 08/05/2023 Quan Kilpatrick Esophageal reflux disease K21.9 [...] Notes * URSULA HELLER: (54 yo F)Acc No.[id number]:08/05/2023 EGD/MAC Patient:?AICHA HELLER RA Provider:?Quan Kilpatrick MD :1970???Age:53 Y???Sex:Female D ate:08/05/2023 Address:[address] [place] [address] Pcp:Jovanni Fine Subjective: * Chief Complaints: * ???1. Gerd,nausea. * Medical History:? Objective: * Vitals:? Assessment: * Assessment: 1.?Esophageal reflux disease - K21.9 (Primary)???2.?Hiatal hernia - K44.9???3.?Gastritis - K29.70???4.?Intestinal bypass and anastomosis status - Z98.0???5.?Nausea - R11.0??? Plan: * Treatment: * Procedure Codes:?88217 UPPER GI ENDOSCOPY, BIOPSY * * The named appointment provid er may or may not be the originator of this progress note, and it is not deemed complete until electronically signed by the appointment provider. Sign off status: Pending * Provider:?Quan Kilpatrick MD Date:? 023 Generated for Oly ott/Ector/Luis Carlossmitting on:?02/01/2025 10:08 AM EDT
== END 2025-02-01 10:09 | disposition home or self-care (01) ==
LOC: HO.HMCH 09:27
PROVIDERS: PCP Physician Assistant; Visit Provider Physician Assistant
DX: E11.42 Type 2 diabetes mellitus with diabetic polyneuropathy (principal); M87.051 Idiopathic aseptic necrosis of right femur; L98.7 Excessive and redundant skin and subcutaneous tissue

== ENCOUNTER → 2025-02-01 09:26 | Outpatient (BNVA) | payer OTHER, SELFPAY | PROVIDERS: PCP Physician Assistant; Visit Provider Physician Assistant | DX: E11.42 Type 2 diabetes mellitus with diabetic polyneuropathy (principal); M87.051 Idiopathic aseptic necrosis of right femur; L98.7 Excessive and redundant skin and subcutaneous tissue | CPT/HCPCS: 96127 ==

== ENCOUNTER 2025-03-02 09:19 | Outpatient (REF) | payer OTHER, SELFPAY ==
--- NOTE | ~2025-03-02 | MM_ITS ---
EXAMINATION: MM SCREENING DIGITAL BREAST TOMOSYNTHESIS, BILATERAL CLINICAL INFORMATION: Screening. Asymptomatic. COMPARISON: Mammography: Comparison is made with available priors TECHNIQUE: Digital breast mammography with tomosynthesis is performed in both the craniocaudal and mediolateral oblique views along with computer-aided detection (CAD). FINDINGS: There are scattered areas of fibroglandular density (ACR BI-RADS breast composition Category b). There are no significant masses, abnormal calcifications, or other abnormalities. MM/MM tomosynthesis screening BI IMPRESSION: No mammographic evidence of malignancy. ASSESSMENT: BI-RADS BI-RADS 1 - Negative RECOMMENDATION: Routine annual mammography screening. 1 year F/U This examination should not preclude the clinical evaluation of a suspicious palpable abnormality. This patient's information was entered into a reminder system with a target due date for their next mammogram. Electronically signed by: Ellen Gale DO 03/06/2025 05:52 PM EDT
--- OUTSIDE RECORDS SUMMARY | 2025-03-02 09:54 | XMS_ITS | Clinical Summary ---
Author Organization [facility] Address [address] [place] [phone] Phone Care Team Providers Care Utility Systems Repairer Operator Name Role Phone Jovanni Fine Primary Care Provider [phone] Allergies Active Allergy Reactions Criticality Noted Date Comments Nsaids (Non-Steroidal Anti-I nflammatory Drug) Angioedema High 09/28/2021 Sumatriptan Rash High 09/21/2024 Medications metFORMIN (GLUCOPHAGE) 1,000 mg tablet Take 1 tablet (1,000 mg total) by mouth 1 (one) time each day with breakfast. 02/16/2022 Active Surgical History Surgery Date Site/Laterality Comments OTHER SURGICAL HISTORY 2009 PROCEDURE: [place] MYOMECTOMY 1-4 MYOMAS W/250 GM/< ABDOMINAL APPR CHOLECYSTECTOMY 02/2015 PROCEDURE: HISTORICAL CHOLECYSTECTOMY BELT ABDOMINOPLASTY PROCEDURE: HISTORICAL TUMMY TUCK OTHER SURGICAL HISTORY 10/2017 PROCEDURE: [place] VULVECTOMY SIMPLE PARTIAL; COMMENT: carcinoma in situ, done at [facility] TOTAL KNEE ARTHROPLASTY 10/04/2018 Right PROCEDURE: [place] ARTHRP KNE CONDYLE&PLATU MEDIAL&LAT COMPARTMENTS COLONOSCOPY 04/24/2016 PROCEDURE: OUTSIDE COLONOSCOPY; COMMENT: Diverticulosis,Normal, Repeat 5 yrs COLONOSCOPY 07/18/2012 PROCEDURE: OUTSIDE COLONOSCOPY; COMMENT: tubular adenoma, diverticulosis, repeat 5 yrs OTHER SURGICAL HISTORY 12/13/2015 PROCEDURE: OUTSIDE ENDOSCOPY; COMMENT: mild chronic esophagitis TUBAL LIGATION PROCEDURE: HISTORICAL TUBAL LIGATION OTHER SURGICAL HISTORY PROCEDURE: [place] UNLISTED LAPAROSCOPY PROCEDURE OVIDUCT OVARY; COMMENT: Tubal [...] complete this topic Insurance [employer] Care Teams Utility Systems Repairer Operator Relationship Specialty Start Date End Date Jovanni Fine PA PCP - General Physician Metal Hanging Helper 09/21/24
== END 2025-03-02 09:20 | disposition home or self-care (01) ==
LOC: HO.MAMMO 09:19
PROVIDERS: PCP Physician Assistant; Visit Provider Physician Assistant
DX: Z12.31 Encounter for screening mammogram for malignant neoplasm of breast (principal)
CPT/HCPCS: 77063; 77067

== ENCOUNTER → 2025-03-02 09:30 | Outpatient (BNV) | payer OTHER, SELFPAY | PROVIDERS: PCP Physician Assistant; Visit Provider Internal Medicine | DX: Z12.31 Encounter for screening mammogram for malignant neoplasm of breast (principal) | CPT/HCPCS: 77063; 77067 ==

== ENCOUNTER 2025-06-08 13:03 | Outpatient (AMB) | payer OTHER, SELFPAY ==
--- NOTE | 2025-06-08 13:17 | MHC.PC.OV ---
Vital Signs 06/08/25 13:18 Height 5 ft 1 in Weight 136 lb 8 oz BMI 25.8 BP 120/60 Blood Pressure Location Lt brachial Position Sitting Pulse 52 Pulse Source Pulse Oximeter Temp 97.1 F Temp Source Temporal Artery Scan Pulse Oximetry (%) 99 Oxygen Delivery Method Room Air Intake Visit Reasons: Sinus congestion Intake Note: Patient complains of Sinus Congestion, coughing, chills, sinus headaches no fever. Warp Knitter Required: No Sports Cartoonist: Not Required per policy Accompanied by: Self / Same As Patient Allergies sumatriptan (From Imitrex) Allergy (Unknown, Verified 06/08/25 13:18) Throat tightness Medication List - Last Reconciled 06/08/25 by Ollie Fernandez MD acetaminophen-caffeine 500-65 mg (Excedrin Tension Headache) 1 tab PO Q12H 7 days albuterol sulfate 2.5 mg (3 mL) inhalation Q6H 30 days albuterol sulfate 90 mcg/actuation (Ventolin HFA) 2 puffs inhalation Q4-6H PRN alcohol swabs (Alcohol Pads) 1 pad topical .once per day blood sugar diagnostic (FreeStyle Lite Strips) 1 strip miscellaneous DAILY 30 days blood-glucose meter (FreeStyle [place] kit) As directed fluticasone propionate 50 mcg/actuation 2 sprays intranasal DAILY 30 days hydroxyzine HCl 25 - 50 mg PO DAILY PRN lactulose 20 grams (30 mL) PO BID PRN 15 days lancets (FreeStyle Lancets) As directed loratadine 10 mg PO DAILY PRN lorazepam 1 tab PO DAILY PRN metformin 1,000 mg PO DAILY Held on 02/28/24. Instructions: Doctor's Order omeprazole 40 mg PO DAILY ondansetron 4 mg PO TID PRN 14 days riboflavin (vitamin B2) (Vitamin B-2) 50 mg PO DAILY tirzepatide (Mounjaro) 5 mg (0.5 mL) subcut QWEEK 4 weeks Held on 02/01/25. Instructions: Doctor's Order zolpidem 10 mg PO BEDTIME PRN Tobacco use date assessed: 06/08/25 Dental Screening Dental Screen Date: 02/01/25 HPI HPI Comments History of Present Illness Details The patient is a 54-year-old female presenting with sinus pressure, congestion, and cough. She reports a history of sinusitis, typically experiencing symptoms around this time of year, including sinus pressure, mucus production, and a mild cough. The current episode began on Wednesday, with symptoms including chills, body aches, and headaches, for which she has been taking Tylenol with partial relief. She has tried muyg-ddg-pkixwne medications such as NyQuil, DayQuil, and Theraflu, as well as nasal sprays like fluticasone, but finds them insufficient for complete symptom relief. The patient has a history of using azithromycin (Z-Ahsan) for sinusitis, which has been effective in the past. She has not tried Augmentin before, which is being considered as an alternative treatment for this episode. [facility] Medical History (Updated 06/08/25 @ 13:40 by Ollie Fernandez MD) Sinusitis Urinary incontinence HTN (hypertension) Hiatal hernia Depression Breast calcification, right Hypercholesteremia Snores COVID-19 vaccine series completed Personal history of COVID-19 IBS (irritable bowel syndrome) Neuropathy Family history of colon cancer Bacteremia due to Escherichia coli Type 2 diabetes mellitus Chronic, continuous use of opioids Chronic pain syndrome Surgical History History of esophagogastroduodenoscopy (EGD) H/O colonoscopy History of cholecystectomy S/P gastric sleeve procedure Hx of cystoscopy History of knee replacement, total S/P total hip arthroplasty H/O abdominoplasty Kidney stones H/O removal of cyst History of reversal of tubal ligation History of bilateral tubal ligation Hx of tonsillectomy Fibroids Family History Father High cholesterol Mother Colon cancer Cancer Mental problem Maternal Grandmother Diabetes Maternal Grandfather Diabetes Paternal Grandmother No problems noted. Paternal Grandfather No problems noted. 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 Cognitive needs: No Hearing needs: No Vision needs: No Female Reproductive History Menstrual Age of Menarche: 13 Questionnaire Thrive Questionnaire Date Thrive assessed: 02/01/25 I am a: Patient What is your living situation today?: I have a steady place to live Within the past 12 months, did the food you bought not last and you didn't have the money to get more?: Never true Within the past 12 months, did you worry whether your food would run out before you got money to buy more?: Sometimes True Do you have trouble paying for medicines?: No Do you have trouble getting transportation to medical appointments?: No Do you have trouble paying your heating and electricity bill?: No Do you have trouble taking care of your child, family member or friend?: No Do you have trouble with day-to-day activities such as bathing, preparing meals, shopping, managing finances, etc.?: No Are you currently unemployed and looking for a job?: No Are you interested in more education?: Yes Please select the resources that you would like help with: None Currently or been in a relationship where the following occur: No concerns reported THRIVE Score: 1 ANUM-7 AMB Questionnaire ANUM-7 Date ANUM - 7 assessed: 02/01/25 Source: Developed by Drs. Quan Cagle, Jessica Rios, Aristeo Fraga and colleagues, with an educational faye from [email or web address]. Review of Systems Const Details: Positives besides what was mentioned in HPI are in BOLD Constitutional: No Weight Change, No Fever, No Chills, No Night Sweats, No Fatigue, No Malaise ENT/Mouth: No Hearing Changes, No Ear Pain, No Nasal Congestion, No Sinus Pain, No Hoarseness, No sore throat, No Rhinorrhea, No Swallowing Difficulty Eyes: No Eye Pain, No Swelling, No Redness, No Foreign Body, No Discharge, No Vision Changes Cardiovascular: No Chest Pain, No SOB, No PND, No Dyspnea on Exertion, No Orthopnea, No Claudication, No Edema, No Palpitations Respiratory: No Cough, No Sputum, No Wheezing, No Smoke Exposure, No Dyspnea Gastrointestinal: No Nausea, No Vomiting, No Diarrhea, No Constipation, No Pain, No Heartburn, No Anorexia, No Dysphagia, No Hematochezia, No Melena, No Flatulence, No Jaundice Genitourinary: No Dysmenorrhea, No DUB, No Dyspareunia, No Dysuria, No Urinary Frequency, No Hematuria, No Urinary Incontinence, No Urgency, No Flank Pain, No Urinary Flow Changes, No Hesitancy Musculoskeletal: No Arthralgias, No Myalgias, No Joint Swelling, No Joint Stiffness, No Back Pain, No Neck Pain, No Injury History Skin: No Skin Lesions, No Pruritis, No Hair Changes, No Breast/Skin Changes, No Nipple Discharge Neuro: No Weakness, No Numbness, No Paresthesias, No Loss of Consciousness, No Syncope, No Dizziness, No Headache, No Coordination Changes, No Recent Falls Psych: No Anxiety/Panic, No Depression, No Insomnia, No Personality Changes, No Delusions, No Rumination, No SI/HI/AH/VH, No Social Issues, No Memory Changes, No Violence/Abuse Hx., No Eating Concerns Heme/Lymph: No Bruising, No Bleeding, No Transfusions History, No Lymphadenopathy Endocrine: No Polyuria, No Polydipsia, No Temperature Intolerance Physical exam (Primary Care) Vital Signs: Last Vital Signs Temp 97.1 F 06/08/25 13:18 Pulse 52 06/08/25 13:18 BP 120/60 06/08/25 13:18 Pulse Ox 99 06/08/25 13:18 Oxygen Delivery Method Room Air 06/08/25 13:18 BMI result Body Mass Index 25.8 Tobacco/Smoking Status: Tobacco use Status Tobacco use date assessed 06/08/25 06/08/25 13:26 Patient Tobacco Use Status Never used Tobacco 06/08/25 13:17 e-Cigarette/Vaping Use Never Used 06/08/25 13:17 Thrive Assessment: Date of Thrive Assessment Date Thrive assessed 02/01/25 06/08/25 13:17 Currently or been in a relationship where the following occur: No concerns reported Const Other: Pertinent findings are in BOLD GENERAL APPEARANCE NAD, activity normal for age, well developed/ well nourished, no cyanosis, pallor, or diaphoresis. EYES lids/conjunctiva normal. EARS/NOSE/THROAT Mucous membranes moist, nares normal, lips/teeth normal uvula midline without oral pharyngeal erythema, exudate or swelling TMs normal bilaterally. No lymphangitis/lymphedema. HEAD/NECK Sinus tenderness. RESPIRATORY respiratory effort normal, speaks in full sentences, no tripod position, no accessory muscle use. Lungs clear to auscultation without rhonchi, wheezes, rales CARDIAC Regular rate and rhythm, no edema. ABDOMINAL Soft, ND/NT. No evidence of fluid wave. No pulsatile masses on exam, rebound tenderness, Moulton sign or pain over Mcburney's point. MUSCLES/EXTREMITIES No abnormal range of motion, no swelling. SKIN Warm, pink and dry. No rashes, dermatoses, petechiae or lesions. NEUROLOGICAL Speech is clear and appropriate. Normal level of consciousness. Gait and coordination are normal. 5/5 strength in all extremities. PSYCH Normal mood and affect. Judgement/competence is appropriate Coding Level of Care Code Est Pt Level 2 (75587) Diagnoses Sinusitis J32.9 Time Spent (min) 20 Assessment & Plan Assessment & Plan (1) Sinusitis: Code(s): J32.9 - Chronic sinusitis, unspecified Category: Medical Plan: Augumentin BID for 7 days. Continue nasal spray. Plan I discussed with the patient that her symptoms are consistent with acute sinusitis and an upper respiratory tract infection. We agreed to start Augmentin for seven days as an alternative to her usual azithromycin treatment. I advised her to continue using nasal sprays and consider fpzf-pnn-[id number] medications for cough relief. Medications: New amoxicillin-pot clavulanate 1,000-62.5 mg (Augmentin XR) 1 tab PO BID 14 tabs 0RF 7 days
[2025-06-08 13:18] VITALS: BP 120/60; PULSE 52; TEMP 36.2; O2SAT 99; BMI 25.8
--- OUTSIDE RECORDS SUMMARY | 2025-06-08 15:37 | XMS_ITS | Patient Health Record ---
Author Organization [facility] Address [address] [place] [phone] Care Team Providers Care Materials Buyer Name Role Phone Jovanni Fine Primary Care Provider Quan Aquino Unavailable [phone] Allergies Allergen (clinical drug ingredient) Drug/Non Drug [...] W/U Status Risk Notes Problem Esophageal reflux (897103978) Esophageal reflux (K21.9) Active confirmed Problem 192342260 Encounter for screening for malignant neoplasm of colon (Z12.11) Active confirmed Problem 828156936 History of adenomatous polyp of colon (Z86.010) Active confirmed Problem 88256224 Diarrhea (R19.7) Active confirmed Problem 118258780 Irritable bowel syndrome with diarrhea (K58.0) Active confirmed Problem 940632974 Nausea (R11.0) Active confirmed Problem History of gastrointestinal tract bypass (571722507) Intestinal bypass and anastomosis status (Z98.0) Active confirmed Problem 130223714 Gastroesophageal reflux disease without esophagitis (K21.9) Active confirmed Problem 404746184 Gastroesophageal reflux disease, esophagitis presence not specified (K21.9) Active confirmed Problem 430535545 Family history o f colon cancer (Z80.0) Active confirmed Problem Gastritis (5581126) Gastritis (K29.70) Active c onfirmed Problem Gastroesophageal reflux disease (644342727) Esophageal reflux disease (K21.9) Active confirmed Problem Diverticular disease of colon (643686862) Colon, diverticulosis (K57.30) Active confirmed Plan Of Treatment Future Test Test Name Order Date COLONOSCOPY 02/06/2016 UPPER GI ENDOSCOPY 09/18/2021 COLONOSCOPY 09/18/2021 UPPER GI ENDOSCOPY 07/23/2023 Insurance Providers Payer Name Payer Address Payer Phone Subscriber Number Group Number Insured Name Patient Relationship to Insured Coverage Start Date Coverage End Date Amina [facility] [address] [place] [phone] [id number] JAVID AVILA Self - patient is the insured Medical (General) History Medical History History ICD Code Depression Avascular necrosis of hips Denies [place],CVA,renal disease Colonoscopy in 06/2012-1 tub ular adenoma [...] is currently be ing seen at the [facility] weight loss center in [place] NIDDM improved after her bar iatric surgery in September of 2022--she lost over 50 pounds Asthma Hypertension Urinary incontinence Urosepsis 07/2020 at [facility] Upper endoscopy in September with the finding [...] replacement 06/2020 Tonsillectomy Gastric sleeve 09/2022 at [facility] in [place]. She lost over 50 pounds as of the June, office visit. The pathology from the gastric resection showed only benign fundic-type gastric mucosa with some focal metaplasia but no dysplasia nor H. pylori.
--- OUTSIDE RECORDS SUMMARY | 2025-06-08 15:37 | XMS_ITS | Clinical Summary ---
Author Organization [facility] Address [address] [place] [phone] Phone Care Team Providers Care Packing Floor Worker Name Role Phone Jovanni Fine Primary Care Provider [phone] Allergies Active Allergy Reactions Criticality Noted Date Comments Nsaids (Non-Steroidal Anti-I nflammatory Drug) Angioedema High 09/28/2021 Sumatriptan Rash High 09/21/2024 Medications metFORMIN (GLUCOPHAGE) 1,000 mg tablet Take 1 tablet (1,000 mg total) by mouth 1 (one) time each day with breakfast. 02/16/2022 Active Surgical History Surgery Date Site/Laterality Comments OTHER SURGICAL HISTORY 2009 PROCEDURE: UT MYOMECTOMY 1-4 MYOMAS W/250 GM/< ABDOMINAL APPR CHOLECYSTECTOMY 02/2015 PROCEDURE: HISTORICAL CHOLECYSTECTOMY BELT ABDOMINOPLASTY PROCEDURE: HISTORICAL TUMMY TUCK OTHER SURGICAL HISTORY 10/2017 PROCEDURE: UT VULVECTOMY SIMPLE PARTIAL; COMMENT: carcinoma in situ, done at [facility] TOTAL KNEE ARTHROPLASTY 10/04/2018 Right PROCEDURE: UT ARTHRP KNE CONDYLE&PLATU MEDIAL&LAT COMPARTMENTS COLONOSCOPY 04/24/2016 PROCEDURE: OUTSIDE COLONOSCOPY; COMMENT: Diverticulosis,Normal, Repeat 5 yrs COLONOSCOPY 07/18/2012 PROCEDURE: OUTSIDE COLONOSCOPY; COMMENT: tubular adenoma, diverticulosis, repeat 5 yrs OTHER SURGICAL HISTORY 12/13/2015 PROCEDURE: OUTSIDE ENDOSCOPY; COMMENT: mild chronic esophagitis TUBAL LIGATION PROCEDURE: HISTORICAL TUBAL LIGATION OTHER SURGICAL HISTORY PROCEDURE: UT UNLISTED LAPAROSCOPY PROCEDURE OVIDUCT OVARY; COMMENT: Tubal [...] 66 09/21/2024 8:02 PM EST Temperature 36.7 C (98.1 F) 09/21/2024 8:02 PM EST Respiratory Rate 16 09/21/2024 8:02 PM EST [...] (2 of 2 - PCV) 04/03/2022 04/03/2021 Cervical Cancer Screening: P ap Smear 08/27/2024 08/27/2021 Cholesterol Screening (Lipid Panel) 09/21/2024 Colorectal Cancer Screening: Colonoscopy 09/21/2024 HIV Screening 09/21/2024 Hepatitis C Screening 09/21/2024 Social Influencers of Health Screening 09/21/2024 Depression Screening 09/27/2024 Zoster Vaccines (2 of 2) 10/25/2024 08/30/2024 COVID-19 Vaccine (3 - 2024-2 6 season) 2025 02/21/2021, 01/31/2021 Influenza Vaccine (#1) 2025 , 10/01/2022, 06/24/2017 DTaP,Tdap,and Td Vaccines (2 - Td or Tdap) 11/05/2031 11/05/2021 HIB Vaccines Aged Out No longer eligi [...] complete this topic Insurance [employer] Care Teams Packing Floor Worker Relationship Specialty Start Date End Date Jovanni Fine PA PCP - General Physician Esl Professor 09/21/24
== END 2025-06-08 13:39 | disposition home or self-care (01) ==
LOC: HO.HMCH 13:04
PROVIDERS: PCP Physician Assistant; Visit Provider Internal Medicine
DX: J32.9 Chronic sinusitis, unspecified (principal)

== ENCOUNTER 2025-06-14 14:32 | Outpatient (AMB) | payer OTHER, SELFPAY ==
[2025-06-14 14:39] VITALS: BP 106/62; PULSE 64; O2SAT 96; BMI 25.7
--- NOTE | 2025-06-14 14:39 | A.OFFPC_ITS ---
Vital Signs 06/14/25 14:39 Height 5 ft 1 in Weight 136 lb 4 oz BMI 25.7 BP 106/62 Blood Pressure Location Lt brachial Position Sitting Pulse 64 Pulse Oximetry (%) 96 Oxygen Delivery Method Room Air Intake Visit Reasons: cold/cough Cnc Grinder Required: No Allergies sumatriptan (From Imitrex) Allergy (Unknown, Verified 06/14/25 14:40) Throat tightness Medication List - Last Reconciled 06/14/25 by Ollie Fernandez MD acetaminophen-caffeine 500-65 mg (Excedrin Tension Headache) 1 tab PO Q12H 7 days albuterol sulfate 2.5 mg (3 mL) inhalation Q6H 30 days albuterol sulfate 90 mcg/actuation (Ventolin HFA) 2 puffs inhalation Q4-6H PRN alcohol swabs (Alcohol Pads) 1 pad topical .once per day benzonatate 200 mg PO TID 5 days blood sugar diagnostic (FreeStyle Lite Strips) 1 strip miscellaneous DAILY 30 days blood-glucose meter (FreeStyle [place] kit) As directed fluticasone propionate 50 mcg/actuation 2 sprays intranasal DAILY 30 days hydroxyzine HCl 25 - 50 mg PO DAILY PRN lancets (FreeStyle Lancets) As directed loratadine 10 mg PO DAILY PRN lorazepam 1 tab PO DAILY PRN omeprazole 40 mg PO DAILY ondansetron 4 mg PO TID PRN 14 days zolpidem 10 mg PO BEDTIME PRN Tobacco use date assessed: 06/08/25 Dental Screening Dental Screen Date: 02/01/25 Did you have a dental visit in the last 12 months?: No Did you have a dental problem in the last 6 months where you did not have access to dental care?: No Was dental information given to patient?: No HPI HPI Comments History of Present Illness Details The patient is a 54-year-old female presenting with symptoms of a post- viral cough. Following a sinus infection treated with antibiotics, the patient developed a persistent dry cough and chest tightness. She manages these symptoms with Albuterol inhaler and Albuterol nebulizer treatments. The cough is primarily dry, with occasional sputum, and she experiences dyspnea, particularly during exertion. Her asthma tends to worsen when she is unwell. She uses yhll-zup-femhrqt medications and has a prescription for benzonatate for her cough. [facility] Medical History Sinusitis Urinary incontinence HTN (hypertension) Hiatal hernia Depression Breast calcification, right Hypercholesteremia Snores COVID-19 vaccine series completed Personal history of COVID-19 IBS (irritable bowel syndrome) Neuropathy Family history of colon cancer Bacteremia due to Escherichia coli Type 2 diabetes mellitus Chronic, continuous use of opioids Chronic pain syndrome Surgical History History of esophagogastroduodenoscopy (EGD) H/O colonoscopy History of cholecystectomy S/P gastric sleeve procedure Hx of cystoscopy History of knee replacement, total S/P total hip arthroplasty H/O abdominoplasty Kidney stones H/O removal of cyst History of reversal of tubal ligation History of bilateral tubal ligation Hx of tonsillectomy Fibroids Family History Father High cholesterol Mother Colon cancer Cancer Mental problem Maternal Grandmother Diabetes Maternal Grandfather Diabetes Paternal Grandmother No problems noted. Paternal Grandfather No problems noted. 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 Cognitive needs: No Hearing needs: No Vision needs: No Female Reproductive History Menstrual Age of Menarche: 13 Questionnaire PHQ-9 Over the last 2 weeks, how often have you been bothered by any of the following problems? 1. Little interest or pleasure in doing things: not at all 2. Feeling down, depressed, or hopeless: not at all 3. Trouble falling or staying asleep, or sleeping too much: several days 4. Feeling tired or having little energy: not at all 5. Poor appetite or overeating: several days 6. Feeling bad about yourself - or that you are a failure or have let yourself or your family down: not at all 7. Trouble concentrating on things, such as reading the newspaper or watching television: several days 8. Moving or speaking so slowly that other people could have noticed. Or the opposite - being so fidgety or restless that you have been moving around a lot more than usual: not at all 9. Thoughts that you would be better off or of hurting yourself in some way: not at all Total score: 3 76313 - PHQ-9 Billing: Yes Source: Developed by Drs. Quan Cagle, Jessica Rios, Aristeo Fraga and colleagues, with an educational faye from [employer]. Thrive Questionnaire Date Thrive assessed: 02/01/25 I am a: Patient What is your living situation today?: I have a steady place to live Within the past 12 months, did the food you bought not last and you didn't have the money to get more?: Never true Within the past 12 months, did you worry whether your food would run out before you got money to buy more?: Sometimes True Do you have trouble paying for medicines?: No Do you have trouble getting transportation to medical appointments?: No Do you have trouble paying your heating and electricity bill?: No Do you have trouble taking care of your child, family member or friend?: No Do you have trouble with day-to-day activities such as bathing, preparing meals, shopping, managing finances, etc.?: No Are you currently unemployed and looking for a job?: No Are you interested in more education?: Yes Please select the resources that you would like help with: None Currently or been in a relationship where the following occur: No concerns reported THRIVE Score: 1 AUDIT C Alcohol Use Questionnaire (AUDIT-C) 1. How often do you have a drink containing alcohol?: Never Total Score: 0 ANUM-7 AMB Questionnaire ANUM-7 Date ANUM - 7 assessed: 02/01/25 Feeling nervous, anxious, or on edge: 1 = Several days Not being able to stop or control worryin = Several days Worrying too much about different things: 1 = Several days Trouble relaxin = Several days Being so restless that it is hard to sit still: 1 = Several days Becoming easily annoyed or irritable: 1 = Several days Feeling afraid as if something awful might happen: 0 = Not at all Total ANUM-7 score (0-4 normal; 5-9 mild; 10-14 moderate; 15-21 severe): 6 Source: Developed by Drs. Quan Cagle, Jessica Rios, Aristeo Fraga and colleagues, with an educational faye from [employer]. ANUM-7 Assessment Billing ANUM-7 Assessment Tool: ANUM-7 Assessment 44169 Review of Systems Const Details: Positives besides what was mentioned in HPI are in BOLD Constitutional: No Weight Change, No Fever, No Chills, No Night Sweats, No Fatigue, No Malaise ENT/Mouth: No Hearing Changes, No Ear Pain, No Nasal Congestion, No Sinus Pain, No Hoarseness, No sore throat, No Rhinorrhea, No Swallowing Difficulty Eyes: No Eye Pain, No Swelling, No Redness, No Foreign Body, No Discharge, No Vision Changes Cardiovascular: No Chest Pain, No SOB, No PND, No Dyspnea on Exertion, No Orthopnea, No Claudication, No Edema, No Palpitations Respiratory: No Cough, No Sputum, No Wheezing, No Smoke Exposure, No Dyspnea Gastrointestinal: No Nausea, No Vomiting, No Diarrhea, No Constipation, No Pain, No Heartburn, No Anorexia, No Dysphagia, No Hematochezia, No Melena, No Flatulence, No Jaundice Genitourinary: No Dysmenorrhea, No DUB, No Dyspareunia, No Dysuria, No Urinary Frequency, No Hematuria, No Urinary Incontinence, No Urgency, No Flank Pain, No Urinary Flow Changes, No Hesitancy Musculoskeletal: No Arthralgias, No Myalgias, No Joint Swelling, No Joint Stiffness, No Back Pain, No Neck Pain, No Injury History Skin: No Skin Lesions, No Pruritis, No Hair Changes, No Breast/Skin Changes, No Nipple Discharge Neuro: No Weakness, No Numbness, No Paresthesias, No Loss of Consciousness, No Syncope, No Dizziness, No Headache, No Coordination Changes, No Recent Falls Psych: No Anxiety/Panic, No Depression, No Insomnia, No Personality Changes, No Delusions, No Rumination, No SI/HI/AH/VH, No Social Issues, No Memory Changes, No Violence/Abuse Hx., No Eating Concerns Heme/Lymph: No Bruising, No Bleeding, No Transfusions History, No Lymphadenopathy Endocrine: No Polyuria, No Polydipsia, No Temperature Intolerance Physical exam (Primary Care) Vital Signs: Last Vital Signs Pulse 64 06/14/25 14:39 BP 106/62 06/14/25 14:39 Pulse Ox 96 06/14/25 14:39 Oxygen Delivery Method Room Air 06/14/25 14:39 BMI result Body Mass Index 25.7 Tobacco/Smoking Status: Tobacco use Status Tobacco use date assessed 06/08/25 06/14/25 14:46 Patient Tobacco Use Status Never used Tobacco 06/14/25 14:46 e-Cigarette/Vaping Use Never Used 06/14/25 14:46 PHQ-9: PHQ-9 Score PHQ-9: Total score 3 06/14/25 14:46 Thrive Assessment: Date of Thrive Assessment Date Thrive assessed 02/01/25 06/14/25 14:46 Currently or been in a relationship where the following occur: No concerns reported Const Other: Pertinent findings are in BOLD GENERAL APPEARANCE NAD, activity normal for age, well developed/ well nourished, no cyanosis, pallor, or diaphoresis. EYES lids/conjunctiva normal. EARS/NOSE/THROAT Mucous membranes moist, nares normal, lips/teeth normal uvula midline without oral pharyngeal erythema, exudate or swelling TMs normal bilaterally. No lymphangitis/lymphedema. HEAD/NECK normocephalic atraumatic, no facial trauma, neck is supple. RESPIRATORY respiratory effort normal, speaks in full sentences, no tripod position, no accessory muscle use. Lungs clear to auscultation without rhonchi, No wheezes, rales CARDIAC Regular rate and rhythm, no edema. ABDOMINAL Soft, ND/NT. No evidence of fluid wave. No pulsatile masses on exam, rebound tenderness, Moulton sign or pain over Mcburney's point. MUSCLES/EXTREMITIES No abnormal range of motion, no swelling. SKIN Warm, pink and dry. No rashes, dermatoses, petechiae or lesions. NEUROLOGICAL Speech is clear and appropriate. Normal level of consciousness. Gait and coordination are normal. 5/5 strength in all extremities. PSYCH Normal mood and affect. Judgement/competence is appropriate Coding Level of Care Code Est Pt Level 3 (78115) Diagnoses Cough R05.9 Additional Codes ANUM-7 Assessment Billing - ANUM-7 Assessment Tool: ANUM-7 Assessment 23516 ([id number]) PHQ-9 - 82958 - PHQ-9 Billing: Yes ([id number]) Time Spent (min) 30 Assessment & Plan Assessment & Plan (1) Cough: Code(s): R05.9 - Cough, unspecified Category: Medical Plan: Benzonatate. Prednisone. Albuterol inhaler and nebulizer refilled. Plan I discussed with the patient that her symptoms are consistent with a post-viral cough following a recent viral infection. We reviewed the management plan, including the use of benzonatate, vhnm-tki-rlymrwk medications, and a short course of prednisone. I advised her to use her inhaler and nebulizer as needed and to follow up in two weeks unless symptoms worsen. Medications: New prednisone 20 mg (4 x 5 mg) PO DAILY 5 tabs 0RF Refilled albuterol sulfate 2.5 mg (3 mL) inhalation Q6H 180 mL 3RF 30 days J40 - Bronchitis, not specified as acute or chronic albuterol sulfate 90 mcg/actuation (Ventolin HFA) 2 puffs inhalation Q4-6H PRN 8.5 grams 1RF shortness of breath or wheezing J45.909 - Unspecified asthma, uncomplicated
--- OUTSIDE RECORDS SUMMARY | 2025-06-14 16:18 | XMS_ITS | Clinical Summary ---
Author Organization [facility] Address [address] [place], [place] [id number] Phone Care Team Providers Care Linux Systems Administrator Name Role Phone Jovanni Fine Primary Care Provider + Chicho Venegas MD Unavailable [phone] Allergies No known active allergies Medications baclofen (LIORESAL) 10 MG tablet Take 10 mg by mouth. Active buPROPion (WELLBUTRIN XL) 150 MG ER 24 hr tablet TAKE 1 TABLET EVERY MORNING ALONG WITH HE 300 MG TABLET FOR A TDD OF 450 MG 1 9 Active cefdinir (OMNICEF) 300 MG capsule Take 600 mg by mouth daily. 3 9 Active dicyclomine (BENTYL) 10 MG capsule TAKE 1 TO 2 CAPSULES BY MOUTH 4 TIMES A DAY NEEDED FOR ABDOMINAL BLOASTING,CRAM PS,DISCOMFORT 5 9 Active loratadine (CLARITIN) 10 mg tablet Take 10 mg by mouth. Active LORazepam (ATIVAN) 1 MG tablet Take 1 mg by mouth. 1 9 Active LATUDA 40 mg Tab TAKE 1 TABLET BY MOUTH EVERY DAY IN THE MORNING 0 9 Active meclizine (ANTIVERT) 25 MG tablet Take 25 mg by mouth. Active metFORMIN (GLUCOPHAGE) 500 MG tablet Take 1,000 mg by mouth. Active CONCERTA 36 mg CR tablet TAKE 1 TABLET BY MOUTH EVERY DAY IN THE MORNING 0 9 Active PRILOSEC OTC 20 mg tablet Take 20 mg by mouth. 11 9 Active oxybutynin (DITROPAN-XL) 5 MG 24 hr tablet Take 5 mg by mouth daily. 11 9 Active zolpidem (AMBIEN) 10 mg tablet TAKE 1 TABLET EVERY NIGHT NEEDED FOR SLEEP 1 9 Active polyethylene glycol (GLYCOLAX) 17 gram/dose powder Take 17 g by mouth daily. Active cholestyramine (QUESTRAN) 4 gram packet Take 1 packet by mouth 3 (three) times a day with meals. Active Active Problems Problem Noted Date Diagnosed Date Right hip pain 05/23/2020 SHERLYN III (vulvar intraepithelial neoplasia III) 0 02/16/2019 Overview (02/16/2019): S/P partial vulvectomy 10/2017 in [place], alternating visits here and in [place]. Assessment & Plan (02/16/2019 1:06 PM EDT): No evidence of current disease, pap done posterior fourchette and perianal area. Excessive bleeding in premenopausal period 02/16 Family History Medical History Relation Comments Other Maternal Aunt Mental health di sorder Heart disease Maternal Grandfather Osteoporosis Maternal Grandmother Stroke Maternal Grandmother Colon cancer Mother Diabetes Mother Hypertension Mother Osteoporosis Mother Other Mother Mental health di sorder Relation Status Comments Maternal Aunt Maternal Grandfather Maternal Grandmother Mother Social History Tobacco Use Types Packs/Day Years Used Date Smoking Tobacco: Never Smokeless Tobacco: Never Alcohol Use Standard Drinks/Week Comments Not Currently 0 (1 standard drink = 0.6 oz pur e alcohol) Education Answer Date Recorded Are you interested in more education? Not on vern e 01/22/2023 Are you concerned about learning? Not on file 01/22/2023 No 01/22/2023 No 01/22/2023 Digital Access Answer Date Recorded No 02/23/2023 No 02/23/2023 No 02/23/2023 Reliable internet access at home? Not on file 02/23/2023 Device with a working camera? Not on file Comments Unknown Sex and Gender Information Value Date Recorded Sex Assigned at Not on file Legal Sex Female 9:47 AM EDT Gender Identity Not on file Sexual Orientation Not on file Last Filed Vital Signs Vital Sign Reading Time Taken Comments Blood Pressure 106/70 02/16/2019 10:18 AM EDT Pulse - - Temperature - - Respiratory Rate - - Oxygen Saturation - - Inhaled Oxygen Concentration - - Weight 84 kg (185 lb 3.2 oz) 02/16/2019 10:18 AM EDT Height - - Body Mass Index - - Plan of Treatment Health Maintenance Due Date Last Done Comments Adult Td,Tdap Booster 1972 CREATININE LEVEL 1972 LIPID PANEL 1972 DEPRESSION SCREENING 1984 HEPATITIS C SCREENING 1990 HIV ONE-TIME SCREENING (18-6 5 YEARS) 1990 ZOSTER VACCINES (1 of 2) 1991 MAMMOGRAM 2012 COLOGUARD 2017 COLONOSCOPY 2017 COLORECTAL CANCER SCREENING 2017 FIT TEST 2017 FOBT 2017 SIGMOIDOSCOPY 2017 VIRTUAL COLONOSCOPY 2017 PAP SMEAR 02/16/2022 02/16/2019, 02/16/2019, 11/28/2018 PNEUMOCOCCAL VACCINES (50+ years) (2 of 2 - PCV) 04/03/2022 04/03/2021 INFLUENZA VACCINE (#1) 2025 COVID-19 VACCINE (1 - 2023-2 5 season) 2025 SMOKING STATUS SCREENING (On ce After 26 Yrs) Completed 02/16/2019 HEPATITIS A VACCINES Aged Out No long er eligible based on patient's age to complete this topic HIB VACCINES Aged Out No longer eligi ble based on patient's age to complete this topic MENINGOCOCCAL VACCINES (ACWY) Aged Out No longer eligible based on patient's age to complete this topic MENINGOCOCCAL VACCINES (B) Aged Out N o longer eligible based on patient's age to complete this topic Medical Devices Not on file Procedures Procedure Name Priority Date/Time Associated Diagnosis Comments PAP TEST Routine 02/16/2019 12:00 AM EDT from Last 3 Months or Most Recently Relevant to Health Maintenance Results * Pap Smear (02/16/2019 12:00 AM EDT) 02/16/2019 02/17/2019 12: 59 PM EDT Narrative SEE NARRATIVE - 02/23/2019 4:28 PM EDT [place] [address] Tank Pumper: Melvi Vázquez MD MUSIC ARRANGER Cytology Report FINAL DIAGNOSIS A. PAP SMEAR (SUREPATH) VAG: SPECIMEN ADEQUACY: Satisfactory for evaluation. INTERPRETATION: NEGATIVE FOR INTRAEPITHELIAL LESION OR MALIGNANCY. Fungal organisms morphologically consistent with Casie species. Electronically Signed Out By: Johnathan Collins MD By his/her signature above, the pathologist listed as making the Final Diagnosis certifies that he/she has personally reviewed this case and confirmed or corrected the diagnosis. The Pap test is a screening test primarily for squamous cancers and precursors and has associated false-negative and false-positive results. New technologies such as liquid-based preparations may decrease but will not eliminate all false-negative results. Regular sampling and follow-up of unexplained clinical signs and symptoms are recommended to minimize false negative results. PROCEDURES/ADDENDA HPV Testing (Requested) Ordered Date: 02/17/2019 A. PAP SMEAR (SUREPATH) VAG: HPV Test Negative for high-risk human papillomavirus types 16, 18, 45 and the Other high risk probe set (Includes 31, 33, 35, 39, 51, 52, 56, 58, 59, 66, 68) by [employer] Onclarity HR-HPV analysis. Clinical correlation is advised. This HPV test was performed at [facility], [address] [place] [address]. This test has been FDA approved for SurePath cervical cytology specimens. The accuracy and precision of this test for all other specimen sources has been verified in the Cytopathology Laboratory of the [facility] and has not been cleared or approved by the U.S. Food and Drug Administration. Clinical correlation is advised. CLINICAL HISTORY Date of Last Menstrual Period: Not Provided Menstrual History: Unknown Other Clinical Conditions: Screening Pap Abnormal BX at Other Lab: 2017 History of vulvar intraepithelial neoplasia III. Parcial vulvectomy 2018. SPECIMEN SOURCE A: PAP SMEAR (SUREPATH) VAG Patient Name: JAVID CHANG : 1970 (Age: 48) Sex: F Institution: [facility] Location: [place] [address] Date of Collection: 02/16/2019 Date of Reported: 02/23/2019 16:28 Results to: Neyda Segovia MD us Neyda Segovia MD CYTOLOGY ORDERABLES Final R esult SEE NARRATIVE from Last 3 Months or Most Recently Relevant to Health Maintenance Insurance HEALTH SAFETY NET PARTIAL Member Subscriber Plan / Payer (Ef fective 2020-Present) Name:Javid Chang Relation to Subscriber:Self Name:Javid Chang Payer ID:Not on file Group ID:Not on file Type:Medicaid Address: [address] [place] [employer] S[employer] NET PARTIAL Member Subscriber Plan / Payer (Ef fective 2020-Present) Name:Javid Chang Relation to Subscriber:Self Name:Javid Chang Payer ID:Not on file Group ID:Not on file Type:Medicaid Address: [address] [place] [employer] NET PARTIAL Member Subscriber Plan / Payer (Ef fective 2020-Present) Name:Torresmarina Tinajeroabner Javid Relation to Subscriber:Self Name:Melissa JimenezJavid Payer ID:Not on file Group ID:Not on file Type:Medicaid Address: [address] [place] P[place] [employer] S[employer] NET PARTIAL [facility] NON [place] PCP [employer] SAF[employer] NET PARTIAL [facility] NON [place]CP [place] [employer] HEALTH SAFETY NET PARTIAL Member Subscriber Plan / Payer (Ef fective 2020-Present) Name:Javid Chang Relation to Subscriber:Self Name:Javid Chang Payer ID:Not on file Group ID:Not on file Type:Medicaid Address: [address] [place] P[place] [employer] NET PARTIAL Member Subscriber Plan / Payer (Ef fective 2020-Present) Name:Javid Chang Relation to Subscriber:Self Name:Javid Chang Payer ID:Not on file Group ID:Not on file Type:Medicaid Address: [address] [place] P[place] [employer] HEALTH SAFETY NET PARTIAL Member Subscriber Plan / Payer (Ef fective 2020-Present) Name:Javid Chang Relation to Subscriber:Self Name:Javid Chang Payer ID:Not on file Group ID:Not on file Type:Medicaid Address: [address] [place] PCP [employer] HEALTH SAFETY NET PARTIAL [employer] NON [place] PCP [employer] Care Teams Linux Systems Administrator Relationship Specialty Start Date End Date Canovanas, Jovanni Jonathan, PA [facility] [place] [address] PCP - General 01/26/19 Chicho Venegas MD [address] [place] [phone] Insurance Assigned Provider Internal Medicine 05/22/20 Additional Source Comments The information contained in this document represents components of the legal health record. It is not the complete legal health record.[facility]
--- OUTSIDE RECORDS SUMMARY | 2025-06-14 16:18 | XMS_ITS | Clinical Summary ---
Author Organization [facility] Address [address] [place] [id number] Phone Care Team Providers Care Booth Operator Name Role Phone Jovanni Fine Primary Care Provider Allergies Active Allergy Reactions Criticality Noted Date [...] PARTIAL; COMMENT: carcinoma in situ, done at [facility] TOTAL KNEE ARTHROPLASTY 10/04/2018 Right PROCEDURE: [place] [...] complete this topic Insurance [employer] Care Teams Booth Operator Relationship Specialty Start Date End Date Jovanni Fine PA PCP - General Physician Ke[employer] Assembly Machine Tender 09/21/24
== END 2025-06-14 15:05 | disposition home or self-care (01) ==
LOC: HO.HMCH 14:33
PROVIDERS: PCP Physician Assistant; Visit Provider Internal Medicine
DX: R05.9 Cough, unspecified (principal)

== ENCOUNTER → 2025-06-14 14:32 | Outpatient (BNVA) | payer OTHER, SELFPAY | PROVIDERS: PCP Physician Assistant; Visit Provider Internal Medicine | DX: J40 Bronchitis, not specified as acute or chronic (principal); R05.3 Chronic cough; R06.00 Dyspnea, unspecified | CPT/HCPCS: 96127 ==

== ENCOUNTER 2025-06-27 14:23 | Outpatient (REF) | payer OTHER, SELFPAY ==
[2025-06-27 15:05] LABS: Hematocrit 37.4 % (37.0-47.0); Hemoglobin 12.1 g/dl (12.0-16.0); Mean Corpuscular HGB Conc 32.4 g/dl (31.0-35.0); Mean Corpuscular Hemoglobin 28.9 pg (27.0-33.0); Mean Corpuscular Volume 89.3 fL (80.0-98.0); NRBC Abs Auto 0.000 X10*3/uL (0.0-0.012); NRBC Pct Auto 0.0 /100WBC (0.0-0.2); Platelet Count 270 X10*3/uL (160-400); Red Blood Count 4.19 X10*6/uL (4.20-5.50); White Blood Count 7.4 X10*3/uL (4.8-10.8)
--- OUTSIDE RECORDS SUMMARY | 2025-06-27 15:33 | XMS_ITS | Clinical Summary ---
Author Organization [facility] Address [address] [place] [id number] Phone Care Team Providers Care Library Paraprofessional Name Role Phone Jovanni Fine Primary Care Provider [phone] Allergies Active Allergy Reactions Criticality Noted Date Comments Nsaids (Non-Steroidal Anti-I nflammatory Drug) Angioedema High 09/28/2021 Sumatriptan Rash High 09/21/2024 Medications metFORMIN (GLUCOPHAGE) 1,000 mg tablet Take 1 tablet (1,000 mg total) by mouth 1 (one) time each day with breakfast. 02/16/2022 Active Surgical History Surgery Date Site/Laterality Comments OTHER SURGICAL HISTORY 2009 PROCEDURE: [place] MYOMECTOMY 1-4 MYOMAS W/250 GM/< ABDOMINAL APPR CHOLECYSTECTOMY 02/2015 PROCEDURE: HISTORICAL CHOLECYSTECTOMY BELT ABDOMINOPLASTY PROCEDURE: HISTORICAL TUMMY TUCK OTHER SURGICAL HISTORY 10/2017 PROCEDURE: [place] VULVECTOMY SIMPLE PARTIAL; COMMENT: carcinoma in situ, done at [facility] TOTAL KNEE ARTHROPLASTY 10/04/2018 Right PROCEDURE: [place] ARTHRP KNE CONDYLE&PLATU MEDIAL&LAT COMPARTMENTS COLONOSCOPY 04/24/2016 PROCEDURE: OUTSIDE COLONOSCOPY; COMMENT: Diverticulosis,Normal, Repeat 5 yrs COLONOSCOPY 07/18/2012 PROCEDURE: OUTSIDE COLONOSCOPY; COMMENT: tubular adenoma, diverticulosis, repeat 5 yrs OTHER SURGICAL HISTORY 12/13/2015 PROCEDURE: OUTSIDE ENDOSCOPY; COMMENT: mild chronic esophagitis TUBAL LIGATION PROCEDURE: HISTORICAL TUBAL LIGATION OTHER SURGICAL HISTORY PROCEDURE: [place] UNLISTED LAPAROSCOPY PROCEDURE OVIDUCT OVARY; COMMENT: Tubal [...] Last Done Comments Breast Cancer Screening 1970 Colorectal Cancer Screening: Colonoscopy 1970 Hepatitis B Vaccines (1 of 3 - 19+ 3-dose series) 1991 Pneumococcal Vaccine: 50+ Years (2 of 2 - PCV) 04/03/2022 04/03/2021 Cervical Cancer Screening: P ap Smear 08/27/2024 08/27/2021 Cholesterol Screening (Lipid Panel) 09/21/2024 HIV Screening 09/21/2024 Hepatitis C Screening 09/21/2024 Social Influencers of Health Screening 09/21/2024 Depression Screening 09/27/2024 Zoster Vaccines (2 of 2) 10/25/2024 08/30/2024 COVID-19 Vaccine (3 - 2024-2 6 season) 2025 02/21/2021, 01/31/2021 Influenza Vaccine (#1) 2025 , 10/01/2022, 06/24/2017 DTaP,Tdap,and Td Vaccines (2 - Td or Tdap) 11/05/2031 11/05/2021 RSV Immunization Adult Patients (1 - 1-dose 75+ series) 2047 HIB Vaccines Aged Out No longer eligi [...] complete this topic Insurance [employer] Care Teams Library Paraprofessional Relationship Specialty Start Date End Date Jovanni Fine PA PCP - General Physician [employer] 09/21/24
--- OUTSIDE RECORDS SUMMARY | 2025-06-27 15:33 | XMS_ITS | Clinical Summary ---
Author Organization [facility] Address [address] [place], [place] [id number] Phone Care Team Providers Care Animal Surgeon Name Role Phone Jovanni Fine Primary Care Provider + Chicho Venegas MD Unavailable [phone]- [phone] Allergies No known active allergies Medications baclofen [...] Overview (02/16/2019): S/P partial vulvectomy 10/2017 in [place], alternating visits here and in [place]. Assessment & Plan (02/16/2019 1:06 PM EDT): [...] SEE NARRATIVE - 02/23/2019 4:28 PM EDT [place] [address] Senior Analyst Market Intelligence: Melvi Vázquez MD ELECTRONIC TESTER Cytology Report FINAL DIAGNOSIS A. PAP SMEAR [...] 52, 56, 58, 59, 66, 68) by [facility] HR-HPV analysis. Clinical correlation is advised. This HPV test was performed at [facility], [address] [place] [address]. This test has been FDA approved for [facility] cervical cytology specimens. The accuracy and precision of this test for all other specimen sources has been verified in the Cytopathology Laboratory of the [facility] and has not been cleared or [...] : 1970 (Age: 48) Sex: F Institution: [facility] Location: [place] [address] Date of Collection: 02/16/2019 Date of Reported: [...] file Group ID:Not on file Type:Medicaid Address: [address] [place] [employer] [employer] NET PARTIAL Member Subscriber Plan / Payer (Ef fective 2020-Present) Name:Javid Chang Relation to Subscriber:Self Name:Javid Chang Payer ID:Not on file Group ID:Not on file Type:Medicaid Address: [address] NON [place] PCP [employer] NET PARTIAL Member Subscriber Plan / Payer (Ef fective 2020-Present) Name:Torresmarina Tinajeroabner Javid Relation to Subscriber:Self Name:Melissa JimenezJavid Payer ID:Not on file Group ID:Not on file Type:Medicaid Address: [address] NON [place] PCP [employer] NET PARTIAL [facility] NON [place] PCP S[employer] NET PARTIAL [facility] NON [place] PCP [place] [facility] [employer] NET PARTIAL Member Subscriber Plan / Payer (Ef fective 2020-Present) Name:Javid Chang Relation to Subscriber:Self Name:Javid Chang Payer ID:Not on file Group ID:Not on file Type:Medicaid Address: [address] NON [place] PCP [place] [employer] NET PARTIAL Member Subscriber Plan / Payer (Ef fective 2020-Present) Name:Javid Chang Relation to Subscriber:Self Name:Javid Chang Payer ID:Not on file Group ID:Not on file Type:Medicaid Address: [address] NON [place] PCP [place] [facility] NET PARTIAL Member Subscriber Plan / Payer (Ef fective 2020-Present) Name:Javid Chang Relation to Subscriber:Self Name:Javid Chang Payer ID:Not on file Group ID:Not on file Type:Medicaid Address: [address] NON [place] PCP [facility] [employer] [facility] [employer] NET PARTIAL [employer] NON [place] PCP [employer] Care Teams Animal Surgeon Relationship Specialty Start Date End Date [place], Jovanni Jonathan, PA [facility] [place] [address] PCP - General 01/26/19 Chicho Venegas MD [address] [place] [id number] Insurance Assigned Provider Internal Medicine 05/22/20 Additional Source Comments The information contained in this document represents components of the legal health record. It is not the complete legal health record.[facility]
[2025-06-27 15:43] LABS: Alanine Aminotransferase 23 U/L (0-31); Albumin Level 4.1 g/dL (3.5-5.0); Alkaline Phosphatase 61 U/L (39-117); Anion Gap 9 (12-20); Aspartate Amino Transferase 23 U/L (5-31); Blood Urea Nitrogen 22 mg/dL (9-16); Calcium 9.3 mg/dL (8.4-10.2); Carbon Dioxide 31 mmol/L (22-29); Chloride 108 mmol/L (96-108); Cholesterol 227 mg/dL (<200); Estimated Glomerular Filt Rate 53; HDL Cholesterol 66 mg/dL (>40); Iron 115 mcg/dL (30-160); Percent Iron Saturation 38 % (15-50); Potassium 4.6 mmol/L (3.3-5.1); Sodium 143 mmol/L (135-145); Total Iron Binding Capacity 299 mcg/dL (228-428); Total Protein 6.7 g/dL (6.5-8.0); Triglycerides 187 mg/dL (<150); Unsaturated Iron Binding 184 ug/dL
== END 2025-06-27 14:24 | disposition home or self-care (01) ==
LOC: HO.LAB 14:23
PROVIDERS: PCP Physician Assistant; Visit Provider Physician Assistant
DX: E11.42 Type 2 diabetes mellitus with diabetic polyneuropathy (principal); E03.9 Hypothyroidism, unspecified; E78.00 Pure hypercholesterolemia, unspecified; D50.9 Iron deficiency anemia, unspecified
CPT/HCPCS: 36415; 80053; 80061; 83036; 83540; 84443; 85027

== ENCOUNTER 2025-06-28 08:03 | Outpatient (AMB) | payer OTHER, SELFPAY ==
--- NOTE | 2025-06-28 08:07 | MHC.PC.OV ---
Vital Signs 06/28/25 08:08 Height 5 ft 1 in Weight 137 lb BMI 25.9 BP 122/70 Blood Pressure Location Lt brachial Position Sitting Pulse 67 Pulse Source Pulse Oximeter Pulse Oximetry (%) 99 Oxygen Delivery Method Room Air Intake Visit Reasons: DM f/u Need A1c Allergies sumatriptan (From Imitrex) Allergy (Unknown, Verified 06/28/25 08:18) Throat tightness Medication List - Last Reconciled 06/28/25 by Jovanni Fine PA-C acetaminophen-caffeine 500-65 mg (Excedrin Tension Headache) 1 tab PO Q12H 7 days albuterol sulfate 2.5 mg (3 mL) inhalation Q6H 30 days albuterol sulfate 90 mcg/actuation (Ventolin HFA) 2 puffs inhalation Q4-6H PRN alcohol swabs (Alcohol Pads) 1 pad topical .once per day blood sugar diagnostic (FreeStyle Lite Strips) 1 strip miscellaneous DAILY 30 days blood-glucose meter (FreeStyle [place] kit) As directed fluticasone propionate 50 mcg/actuation 2 sprays intranasal DAILY 30 days hydroxyzine HCl 25 - 50 mg PO DAILY PRN lancets (FreeStyle Lancets) As directed loratadine 10 mg PO DAILY PRN lorazepam 1 tab PO DAILY PRN omeprazole 40 mg PO DAILY ondansetron 4 mg PO TID PRN 14 days zolpidem 10 mg PO BEDTIME PRN Tobacco use date assessed: 06/08/25 Dental Screening Dental Screen Date: 02/01/25 HPI DM f/u Need A1c HPI Details Patient is a 54-year-old female here today for? a follow-up visit. Patient has a past medical history of type 2 diabetes, obesity (status post bariatric surgery) ,avascular necrosis of bilateral hips. Concern--> The patient reports a persistent cough, primarily occurring at night, which may be related to her allergies. She has been using DayQuil, NyQuil, and a nasal spray (Flonase) for symptom management. A chest x-ray has been suggested to rule out other causes such as walking pneumonia. Menopause/ vasomotor symptoms: She also reports having hot flashes at night to which she contributes to menopause. She has been trying the black cohosh though does not seem to be helpful for her menopause. She is still awaiting to establish care with a new diving judge .. Status post bariatric sleeve has lost significant amount of weight, did have some complications with nausea and up a gastric pain. She continues to follow bariatric program at [facility], continues to follow bariatric diet and is physically active at the gym several days a week. She has followed up with her bariatric surgeon whom will be sending her for labs to check vitamin levels ect.. We continue obesity management combined with diabetes care. There is an active discussion regarding her current weight management using Mounjaro, with concerns over the balance between excessive weight loss and regain. She has maintained her current weight through medication but noticed increased hunger when the dose was reduced. The goal remains to maintain her weight without medication gradually. She has additional concerns about excess skin post-surgery and desires consultation with a plastic surgeon for possible abdominoplasty due to discomfort and skin fold infections. We plan to reduce her monjauro to 2.5 mg weekly . Type 2 diabetes: Most recent A1c of 5.3. She has been off metformin for quite some time, she would like to continue GLP 1 to maintain glycemic control and weight reduction. Laboratory Tests 12/13/24 06/27/25 12:18 14:40 RBC 4.19 L Hgb 12.1 Creatinine 1.09 Hemoglobin A1c % 5.0 5.3 Cholesterol 233 H 227 H LDL Cholesterol, C alc 133 H 124 H TSH 1.36 1.20 PFSH Medical History Sinusitis Urinary incontinence HTN (hypertension) Hiatal hernia Depression Breast calcification, right Hypercholesteremia Snores COVID-19 vaccine series completed Personal history of COVID-19 IBS (irritable bowel syndrome) Neuropathy Family history of colon cancer Bacteremia due to Escherichia coli Type 2 diabetes mellitus Chronic, continuous use of opioids Chronic pain syndrome Surgical History History of esophagogastroduodenoscopy (EGD) H/O colonoscopy History of cholecystectomy S/P gastric sleeve procedure Hx of cystoscopy History of knee replacement, total S/P total hip arthroplasty H/O abdominoplasty Kidney stones H/O removal of cyst History of reversal of tubal ligation History of bilateral tubal ligation Hx of tonsillectomy Fibroids Family History Father High cholesterol Mother Colon cancer Cancer Mental problem Maternal Grandmother Diabetes Maternal Grandfather Diabetes Paternal Grandmother No problems noted. Paternal Grandfather No problems noted. 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 Cognitive needs: No Hearing needs: No Vision needs: No Female Reproductive History Menstrual Age of Menarche: 13 Questionnaire PHQ-9 Over the last 2 weeks, how often have you been bothered by any of the following problems? 1. Little interest or pleasure in doing things: not at all 2. Feeling down, depressed, or hopeless: not at all 3. Trouble falling or staying asleep, or sleeping too much: several days 4. Feeling tired or having little energy: not at all 5. Poor appetite or overeating: several days 6. Feeling bad about yourself - or that you are a failure or have let yourself or your family down: not at all 7. Trouble concentrating on things, such as reading the newspaper or watching television: several days 8. Moving or speaking so slowly that other people could have noticed. Or the opposite - being so fidgety or restless that you have been moving around a lot more than usual: not at all 9. Thoughts that you would be better off or of hurting yourself in some way: not at all Total score: 3 Depression Screening Interpretation: Positive Depression Screening Follow-up: Existing condition Depression Screening Done: Yes 32498 - PHQ-9 Billing: Yes Source: Developed by Drs. Quan Cagle, Jessica Rios, Aristeo Fraga and colleagues, with an educational faye from [employer]. Thrive Questionnaire Date Thrive assessed: 02/01/25 I am a: Patient What is your living situation today?: I have a steady place to live Within the past 12 months, did the food you bought not last and you didn't have the money to get more?: Never true Within the past 12 months, did you worry whether your food would run out before you got money to buy more?: Sometimes True Do you have trouble paying for medicines?: No Do you have trouble getting transportation to medical appointments?: No Do you have trouble paying your heating and electricity bill?: No Do you have trouble taking care of your child, family member or friend?: No Do you have trouble with day-to-day activities such as bathing, preparing meals, shopping, managing finances, etc.?: No Are you currently unemployed and looking for a job?: No Are you interested in more education?: Yes Please select the resources that you would like help with: None Currently or been in a relationship where the following occur: No concerns reported THRIVE Score: 1 ANUM-7 AMB Questionnaire ANUM-7 Date ANUM - 7 assessed: 02/01/25 Source: Developed by Drs. Quan Cagle, Jessica Rios, Aristeo Fraga and colleagues, with an educational faye from [employer]. Review of Systems Const Denies headache(s) Eyes Denies loss of vision ENT Denies vertigo, Denies dizziness, Denies headache(s) and Denies sore throat Card Denies chest pain, Denies leg edema and Denies lightheadedness Resp Reports cough, Denies hemoptysis and Denies wheezing GI Denies abdominal pain, Denies melena, Denies constipation, Denies diarrhea and Denies vomiting Denies urinary frequency, Denies dysuria and Denies urinary urgency Musc Denies arthralgias, Denies joint swelling, Denies numbness and Denies tingling Neuro Denies Abnormal speech present, Denies behavioral changes, Denies vertigo, Denies dizziness, Denies headache(s), Denies loss of vision, Denies memory loss, Denies numbness and Denies tingling Psych Denies anxiety, Denies behavioral changes, Denies depression, Denies memory loss and Denies panic attacks Reddy/Lymph Denies easy bleeding and Denies easy bruising Aller/Immun Denies wheezing Physical exam (Primary Care) Vital Signs: Last Vital Signs Pulse 67 06/28/25 08:08 BP 122/70 06/28/25 08:08 Pulse Ox 99 06/28/25 08:08 Oxygen Delivery Method Room Air 06/28/25 08:08 BMI result Body Mass Index 25.9 Tobacco/Smoking Status: Tobacco use Status Tobacco use date assessed 06/08/25 06/28/25 08:12 Patient Tobacco Use Status Never used Tobacco 06/28/25 08:12 Tobacco use type Cigarette 06/28/25 08:12 e-Cigarette/Vaping Use Never Used 06/28/25 08:12 PHQ-9: PHQ-9 Score PHQ-9: Total score 3 06/28/25 08:12 Depression Screening Interpretation: Positive Depression Screening Follow-up: Existing condition Thrive Assessment: Date of Thrive Assessment Date Thrive assessed 02/01/25 06/28/25 08:12 Currently or been in a relationship where the following occur: No concerns reported Const General: healthy appearing, no acute distress, alert and awake Nutritional Appearance: well nourished Orientation/consciousness: oriented to person, oriented to place and oriented to time HENMT Ears: TM's normal bilaterally General nose exam: Normal nasal mucous membranes and turbinates present Eyes Conjunctivae: conjunctivae normal Sclerae: sclerae normal Pupils: Equal, round and reactive pupils present Neck Neck: Yes no lymphadenopathy and Yes no JVD Thyroid: Thyroid normal Carotids: no bruits Resp Effort & Inspection: normal respiratory effort and not tachypneic Auscultation: no crackles, no rales, no rhonchi and no wheezes Cardio Rate: regular rate Rhythm: regular rhythm Heart sounds: no murmurs and normal S1 and S2 GI Palpation (GI): Soft to palpation, nontender, no hepatomegaly and no splenomegaly Auscultation: normal bowel sounds Skin General skin exam: no rashes or lesions noted and dry skin Neuro General: oriented to person, oriented to place and oriented to time Cranial nerves: Yes Equal, round and reactive pupils present Speech: No Abnormal speech present Gait exam (Neuro): Normal gait present Motor exam (neuro): no tremor noted Extrem Right upper extremity: full ROM Left upper extremity: full ROM Right lower extremity: full ROM; no edema Left lower extremity: full ROM; no edema Psych Mental Status: mental status grossly normal Speech and movement: Normal speech and movement present Affect: normal affect Attitude: cooperative Thought process: Normal thought process present Coding Level of Care Code Est Pt Level 4 (96082) Diagnoses Type 2 diabetes mellitus with diabetic polyneuropathy, without long-term current use of insulin E11.42 Diabetes mellitus senior care insulin use: without director long term care use Diabetes mellitus complication status: with neurologic complications Diabetes mellitus complication detail: with polyneuropathy Hypercholesteremia E78.00 ANUM (generalized anxiety disorder) F41.1 Hypothyroidism, unspecified type E03.9 Hypothyroidism type: unspecified Subacute cough R05.2 Cough type: subacute Additional Codes PHQ-9 - 74395 - PHQ-9 Billing: Yes ([id number]) Assessment & Plan Assessment & Plan (1) DMII (diabetes mellitus, type 2): Code(s): E11.9 - Type 2 diabetes mellitus without complications Category: Medical Qualifiers: Diabetes mellitus senior care insulin use: without director long term care use Diabetes mellitus complication status: with neurologic complications Diabetes mellitus complication detail: with polyneuropathy Qualified Code(s): E11.42 - Type 2 diabetes mellitus with diabetic polyneuropathy Plan: Patient's type 2 diabetes well controlled. Most recent A1c of 5.3. She would like to continue on to his appetite 2.5 weekly to maintain her glycemic control and weight reduction. She is working with a personal property assessor to try to toenail per muscle. Goal A1c is to remain below 6.5 (2) Hypercholesteremia: Code(s): E78.00 - Pure hypercholesterolemia, unspecified Category: Medical Plan: Recent lipid panel showing borderline high cholesterol, triglycerides and LDL. She will work on dietary modifications to reduce her cholesterol. Goal LDL to be preferably in optimally below 100 (3) ANUM (generalized anxiety disorder): Code(s): F41.1 - Generalized anxiety disorder Category: Medical Plan: Patient anxiety has been well controlled with current medications and continues to follow a mental health therapist and a med provider. (4) Hypothyroid: Code(s): E03.9 - Hypothyroidism, unspecified Category: Medical Qualifiers: Hypothyroidism type: unspecified Qualified Code(s): E03.9 - Hypothyroidism, unspecified Plan: Patient's most recent TSH stable. She is off of thyroid medication as she has been able to reduce her wakes significantly. (5) Cough: Code(s): R05.9 - Cough, unspecified Category: Medical Qualifiers: Cough type: subacute Qualified Code(s): R05.2 - Subacute cough Plan: A chest x-ray is recommended to rule out any underlying conditions contributing to her persistent cough, which may be related to allergies. The patient will be prescribed a cough syrup with codeine to manage nighttime cough symptoms, with caution advised regarding potential interactions with other medications such as lorazepam and zolpidem. Orders: Orders XR chest 2V Today R05.9 - Cough, unspecified Comprehensive [place]. Panel Fast Today E11.42 - Type 2 diabetes mellitus with diabetic polyneuropathy Microalbumin, Random (w Creat) Today E11.42 - Type 2 diabetes mellitus with diabetic polyneuropathy IRON PROFILE Today D50.9 - Iron deficiency anemia, unspecified Complete Blood Count no Diff Today E11.42 - Type 2 diabetes mellitus with diabetic polyneuropathy Lipid Panel Today E78.00 - Pure hypercholesterolemia, unspecified Medications: New codeine-guaifenesin 10-100 mg/5 mL 5 mL PO Q6H PRN 120 mL 0RF cough 5 days R05.9 - Cough, unspecified tirzepatide (Mounjaro) for 4 weeks 2.5 mg (0.5 mL) subcut QWEEK 2 mL 3RF 4 weeks E11.42 - Type 2 diabetes mellitus with diabetic polyneuropathy, E78.00 - Pure hypercholesterolemia, unspecified Refilled omeprazole 40 mg PO DAILY 90 caps 1RF K21.00 - Gastro-esophageal reflux disease with esophagitis, without bleeding
[2025-06-28 08:08] VITALS: BP 122/70; PULSE 67; O2SAT 99; BMI 25.9
== END 2025-06-28 08:43 | disposition home or self-care (01) ==
LOC: HO.HMCH 08:04
PROVIDERS: PCP Physician Assistant; Visit Provider Physician Assistant
DX: E11.42 Type 2 diabetes mellitus with diabetic polyneuropathy (principal); E78.00 Pure hypercholesterolemia, unspecified; F41.1 Generalized anxiety disorder; E03.9 Hypothyroidism, unspecified; R05.2 Subacute cough

== ENCOUNTER → 2025-06-28 08:03 | Outpatient (BNVA) | payer OTHER, SELFPAY | PROVIDERS: PCP Physician Assistant; Visit Provider Physician Assistant | DX: E11.42 Type 2 diabetes mellitus with diabetic polyneuropathy (principal); E78.00 Pure hypercholesterolemia, unspecified; N95.1 Menopausal and female climacteric states; R23.2 Flushing; F41.1 Generalized anxiety disorder; E03.9 Hypothyroidism, unspecified; R05.2 Subacute cough; Z98.84 Bariatric surgery status | CPT/HCPCS: 96127 ==

== ENCOUNTER 2025-07-27 09:27 | Outpatient (REF) | payer OTHER, SELFPAY ==
[2025-07-28 11:05] LABS: Bacterial Vaginosis PCR NEGATIVE (Negative); Candida Group PCR NOT DETECTED (Not Detect); Candida glab krusei PCR NOT DETECTED (Not Detect); Trichomonas vaginalis PCR NOT DETECTED (Not Detect)
[2025-07-28 11:36] LABS: CT PCR NOT DETECTED (Not Detect.); NG PCR NOT DETECTED (Not Detect.)
== END 2025-07-27 09:28 | disposition home or self-care (01) ==
LOC: HO.LNP 09:27
PROVIDERS: PCP Physician Assistant; Visit Provider Advanced Practice Midwife
DX: Z01.419 Encounter for gynecological examination (general) (routine) without abnormal findings (principal); E11.42 Type 2 diabetes mellitus with diabetic polyneuropathy; N95.1 Menopausal and female climacteric states; Z11.51 Encounter for screening for human papillomavirus (HPV); Z20.2 Contact with and (suspected) exposure to infections with a predominantly sexual mode of transmission; Z98.890 Other specified postprocedural states; Z98.84 Bariatric surgery status; Z87.898 Personal history of other specified conditions; Z98.51 Tubal ligation status
CPT/HCPCS: 81515; 87491; 87591; 87626; 88175

== ENCOUNTER 2025-07-27 09:27 | Outpatient (AMB) | payer OTHER, SELFPAY ==
--- NOTE | 2025-07-27 09:33 | MHC.OFFVIS ---
Vital Signs 07/27/25 09:49 Height 5 ft 1 in Weight 137 lb BMI 25.9 BP 120/70 Intake Visit Reasons: New patient annual Intake Note: Last pap smear 5 or so years ago, 1 abnormal pap smear. No menstrual in more then a year, experiencing mood swings, hot flashes. Equal Opportunity Director: Equal Opportunity Director Present (Rahel) Accompanied by: Self / Same As Patient Allergies sumatriptan (From Imitrex) Allergy (Unknown, Verified 06/28/25 08:18) Throat tightness Medication List - Last Reconciled 07/27/25 by Juanita Quintana CNM albuterol sulfate 2.5 mg (3 mL) inhalation Q6H 30 days albuterol sulfate 90 mcg/actuation (Ventolin HFA) 2 puffs inhalation Q4-6H PRN alcohol swabs (Alcohol Pads) 1 pad topical .once per day blood sugar diagnostic (FreeStyle Lite Strips) 1 strip miscellaneous DAILY 30 days blood-glucose meter (FreeStyle Fingal kit) As directed fluticasone propionate 50 mcg/actuation 2 sprays intranasal DAILY 30 days hydroxyzine HCl 25 - 50 mg PO DAILY PRN lancets (FreeStyle Lancets) As directed loratadine 10 mg PO DAILY PRN lorazepam 1 tab PO DAILY PRN omeprazole 40 mg PO DAILY ondansetron 4 mg PO TID PRN 14 days tirzepatide (Mounjaro) 2.5 mg (0.5 mL) subcut QWEEK 4 weeks zolpidem 10 mg PO BEDTIME PRN Is last menstrual period known: No Post menopausal: No Patient : No HPI HPI New patient annual: Details: 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 She works from home for [employer]. She had gained a lot of weight in the years and ended up with knee replacement and hip replacement and then end up with diabetes and had gastric bypass surgery and then she had abdominal plasty surgery and currently she is now on Mounjaro to maintain her weight loss and she is keeping her hemoglobin A1c in good control and does not need to check her sugars often anymore. 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 [facility] Medical History (Updated 07/27/25 @ 10:54 by Juanita Quintana CNM) Vulvar cancer Sinusitis Urinary incontinence HTN (hypertension) Hiatal hernia Depression Breast calcification, right Hypercholesteremia Snores COVID-19 vaccine series completed Personal history of COVID-19 IBS (irritable bowel syndrome) Neuropathy Family history of colon cancer Bacteremia due to Escherichia coli Type 2 diabetes mellitus Chronic, continuous use of opioids Chronic pain syndrome Surgical History (Updated 07/27/25 @ 10:54 by Juanita Quintana CNM) History of esophagogastroduodenoscopy (EGD) H/O colonoscopy History of cholecystectomy S/P gastric sleeve procedure Hx of cystoscopy History of knee replacement, total S/P total hip arthroplasty H/O abdominoplasty Kidney stones H/O removal of cyst History of reversal of tubal ligation History of bilateral tubal ligation Hx of tonsillectomy Fibroids Family History Father High cholesterol Mother Colon cancer Cancer Mental problem Maternal Grandmother Diabetes Maternal Grandfather Diabetes Paternal Grandmother No problems noted. Paternal Grandfather No problems noted. 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 Cognitive needs: No Hearing needs: No Vision needs: No Female Reproductive History Menstrual Age of Menarche: 13 control method: none Total pregnancies: 2 Full term: 2 History of abnormal pap smear: Yes Date of Mammogram: 03/02/25 (bi rad 1) Physical Exam Vital Signs: Last Vital Signs BP 120/70 07/27/25 09:49 BMI result Body Mass Index 25.9 Const General: healthy appearing, comfortable, no acute distress, well developed and alert Nutritional Appearance: average body habitus Orientation/consciousness: patient oriented x3 Limitations: no limitations HEENT Head: Yes normocephalic Neck Neck: Yes normal visual inspection Chest Chest palpation & inspection: normal inspection of the chest Breast/axilla inspection: normal inspection of the breasts and normal inspection of the axillae Breast/axilla palpation: normal palpation of the breasts and normal palpation of the axillae Resp Effort & Inspection: normal respiratory effort GI Inspection: Yes normal to inspection, No Abdominal wall edema and No distended Palpation (GI): Soft to palpation and nontender Other: Patient has usual pigment changes in vulva consistent with her base skin color and evidence of excisions in the past there is nothing that appears suspicious and I had the patient look with a mirror as well and she confirmed that everything looks the same to her as it has been looking in recent years. Vagina is pink and moist cervix is nulliparous in appearance though she has had children vaginally. She does not remember what cervical procedures might of been done after her abnormal Pap smears some years ago she does not remember if she had a LEEP or not. Cervix is long close thick firm mobile uterus small anteverted nontender adnexa nontender. Good tone with Kegel. General: Yes bladder normal to palpation External Female Exam: normal external appearance and normal appearance of the urethra Speculum Exam - Vagina: normal appearance of the vagina, normal palpation and normal vaginal discharge Speculum Exam - Cervix: normal appearance of the cervix, normal palpation and nontender Bimanual exam- vagina & uterus: normal bimanual exam, normal palpation, uterine size normal, bladder normal to palpation, consistency normal, normal palpation, uterine mobility normal, uterine shape normal, No Cervical tenderness present, non-tender and no cervical motion tenderness Bimanual Exam- Adnexa, other: normal adnexae, no masses, normal and No adnexal tenderness Neuro General: patient oriented x3 Assessment & Plan Assessment & Plan (1) DMII (diabetes mellitus, type 2): Code(s): E11.9 - Type 2 diabetes mellitus without complications Category: Medical Qualifiers: Diabetes mellitus complication detail: with polyneuropathy Diabetes mellitus complication status: with neurologic complications Diabetes mellitus rat exterminator insulin use: without rat exterminator use Qualified Code(s): E11.42 - Type 2 diabetes mellitus with diabetic polyneuropathy (2) Menopausal hot flushes: Code(s): N95.1 - Menopausal and female climacteric states Category: Medical (3) Hx of malignant neoplasm of vulva: Comment: Patient says it was discovered 7 years ago stage IV, she was referred to [place] and treated there and states everything was fine at the last evaluation. Code(s): Z85.44 - Personal history of malignant neoplasm of other female genital organs Category: Medical (4) History of abnormal Pap smear: Code(s): Z87.898 - Personal history of other specified conditions Category: Medical (5) S/P gastric sleeve procedure: Comment: 10/01/22 [facility] Code(s): Z90.3 - Acquired absence of stomach [part of] Category: Surgical (6) H/O abdominoplasty: Code(s): Z98.890 - Other specified postprocedural states Category: Surgical (7) Women's annual routine gynecological examination: Code(s): Z01.419 - Encounter for gynecological examination (general) (routine) without abnormal findings Category: Medical Plan -----Discussed in this visit the following: healthy balanced diet, regular and consistent exercise, getting recommended health screens, doing the best she can for her particular health concerns, kegel exercises, pap smear screening and followup recommendations, mammography screening and SBE, normal changes in cycles in her life stage--- . She says she is up-to-date on her mammograms. She says her diabetes is under very good control now the Mounjaro is helping her maintain her weight which is really helping things a lot. She had not had a Pap smear in 5 years and she had not been seen in about 5 years for follow-up of the vulvar cancer. She expressed interest in seeking out estrogen patches and wants to talk to someone about that discussed that she may make an appointment with claim benefit specialist if she wishes to discuss this further. Today we did a Pap smear as well as testing for gonorrhea chlamydia trichomoniasis bacterial vaginosis and yeast.. Discussed all of the menopausal changes and also life experience and stage of life changes that are going on and the normalcy of many of her experiences in the challenges they bring forth. She does have support. Coding Level of Care Code New Pt Prev Care 40-64y(17952) Diagnoses Type 2 diabetes mellitus with diabetic polyneuropathy, without long-term current use of insulin E11.42 Diabetes mellitus complication detail: with polyneuropathy Diabetes mellitus complication status: with neurologic complications Diabetes mellitus custodial insulin use: without custodial use Menopausal hot flushes N95.1 Hx of malignant neoplasm of vulva Z85.44 History of abnormal Pap smear Z87.898 S/P gastric sleeve procedure Z90.3 H/O abdominoplasty Z98.890 Women's annual routine gynecological examination Z01.419
[2025-07-27 09:49] VITALS: BP 120/70; BMI 25.9
--- OUTSIDE RECORDS SUMMARY | 2025-07-27 10:27 | XMS_ITS | Patient Health Record ---
Author Organization [facility] Address [address] [place] [id number] Care Team Providers Care Shaving Machine Operator Name Role Phone Jovanni Fine Primary Care Provider Quan Aquino Unavailable [phone] Allergies Allergen (clinical drug ingredient) Drug/Non Drug Allergy documented on EMR Reaction Allergy Type Onset Date Status Non-steroidal anti-inflammatory agent (FN) NSAIDs Unknown Drug Allergy Active sumatriptan Imitrex trouble swallowing Drug Allergy Active Reason For Referral No Information Medications Medication SIG (Take, Route, Frequency, Duration) Notes Start Date End Date Status Fluticasone Propionate HFA as needed Active Ventolin HFA 108 (90 Base) MCG/ACT Inhalation; Duration: 30 as needed Active metFORMIN HCl ER Act khadra Omeprazole 20 MG 1 capsule Orally Onc e a day Not-Taking Colestipol HCl 1 GM TAKE 1 TABLET BY MOUTH TWICE A DAY FOR 30 DAYS; Duration: 90 as needed Not-Taking LORazepam 1 MG Oral; Duration: 10 Active Ondansetron 4 MG Oral; Duration: 30 Active PriLOSEC OTC 20 MG 1 once [...] W/U Status Risk Notes Problem Esophageal reflux (227032190) Esophageal reflux (K21.9) Active confirmed Problem Screening for malignant neoplasm of colon (721688549) Encounter for screening for malignant neoplasm of colon (Z12.11) Active confirmed Problem History of adenomatous polyp of colon (232789592) History of adenomatous polyp of colon (Z86.010) Active confirmed Problem Diarrhea (11538795) Diarrhea (R19.7) Active con firmed Problem Irritable bowel syndrome with diarrhea (653566544) Irritable bowel syndrome with diarrhea (K58.0) Active confirmed Problem Nausea (310238392) Nausea (R11.0) Active confir med Problem History of gastrointestinal tract bypass (832567413) Intestinal bypass and anastomosis status (Z98.0) Active confirmed Problem Gastroesophageal reflux disease without esophagitis (490259285) Gastroesophageal reflux disease without esophagitis (K21.9) Active confirmed Problem Gastroesophageal reflux disease (524116498) Gastroesophageal reflux disease, esophagitis presence not specified (K21.9) Active confirmed Problem Family History of Cancer of Colon (Situation) (033783751) Family history of colon cancer (Z80.0) Active confirmed Problem Gastritis (2366212) Gastritis (K29.70) Active c onfirmed Problem Gastroesophageal reflux disease (969705976) Esophageal reflux disease (K21.9) Active confirmed Problem Diverticular disease of colon (829605884) Colon, diverticulosis (K57.30) Active confirmed Plan Of Treatment Future Test Test Name Order Date COLONOSCOPY 02/06/2016 UPPER GI ENDOSCOPY 09/18/2021 COLONOSCOPY 09/18/2021 UPPER GI ENDOSCOPY 07/23/2023 Insurance Providers Payer Name Payer Address Payer Phone Subscriber Number Group Number Insured Name Patient Relationship to Insured Coverage Start Date Coverage End Date Amina NOGUEIRA [address] [place], [place] [phone] [id number] JAVID AVILA Self - patient is the insured Medical (General) History Medical History History ICD Code Depression Avascular necrosis of hips Denies UT,CVA,renal disease Colonoscopy in 06/2012-1 tub ular adenoma [...] is currently be ing seen at the [facility] weight loss center in [place] NIDDM improved after her bar iatric surgery in September of 2022--she lost over 50 pounds Asthma Hypertension Urinary incontinence Urosepsis 07/2020 at [facility] Upper endoscopy in September with the [...] replacement 06/2020 Tonsillectomy Gastric sleeve 09/2022 at [facility] in [place]. She lost over 50 pounds as of the June, office visit. The pathology from the gastric resection showed only benign fundic-type gastric mucosa with some focal metaplasia but no dysplasia nor H. pylori.
--- OUTSIDE RECORDS SUMMARY | 2025-07-27 10:27 | XMS_ITS | Clinical Summary ---
Author Organization [facility] Address [address] [place] [id number] Phone Care Team Providers Care Blanket Cutting Machine Operator Name Role Phone Jovanni Fine Primary Care Provider [phone] Allergies Active Allergy Reactions Criticality Noted Date [...] PARTIAL; COMMENT: carcinoma in situ, done at [facility] TOTAL KNEE ARTHROPLASTY 10/04/2018 Right PROCEDURE: [...] (2 of 2 - PCV) 04/03/2022 04/03/2021 RSV Immunization Adult Patients (1 - Risk 50-74 years 1-dose series) 2022 Cervical Cancer Screening: P ap Smear 08/27/2024 [...] complete this topic Insurance [employer] Care Teams Blanket Cutting Machine Operator Relationship Specialty Start Date End Date Jovanni Fine PA PCP - General Physician Ob/Gyn Physician 09/21/24
--- OUTSIDE RECORDS SUMMARY | 2025-07-27 10:27 | XMS_ITS | Clinical Summary ---
Author Organization [facility] Address [address] [place], [place] [id number] Phone Care Team Providers Care Press Tool Maker Name Role Phone Jovanni Fine Primary Care Provider + Chicho Venegas MD Unavailable [phone] Allergies No known active allergies Medications baclofen [...] Overview (02/16/2019): S/P partial vulvectomy 10/2017 in [place], alternating visits here and in [place]. Assessment & Plan (02/16/2019 1:06 PM EDT): [...] VACCINE (#1) 2025 COVID-19 VACCINE (1 - 2024-2 6 season) 2025 RSV VACCINE (1 - 1-dose 75+ series) 2047 SMOKING STATUS SCREENING (On ce After 26 [...] SEE NARRATIVE - 02/23/2019 4:28 PM EDT [address] [address] Glass Enamel Mixer: Melvi Vázquez MD FILE CLERK Cytology Report FINAL DIAGNOSIS A. PAP SMEAR [...] 52, 56, 58, 59, 66, 68) by [employer] On[employer]arity HR-HPV analysis. Clinical correlation is advised. This HPV test was performed at [facility], [address] [place] [address]. This test has been FDA approved for [facility] cervical cytology specimens. The accuracy and precision of this test for all other specimen sources has been verified in the Cytopathology Laboratory of the [facility] and has not been cleared or approved [...] : 1970 (Age: 48) Sex: F Institution: [facility] Location: [place] [address] Date of Collection: 02/16/2019 Date of Reported: 02/23/2019 16:28 Results to: Neyda Segovia MD us Neyda Segovia MD CYTOLOGY ORDERABLES Final R esult SEE NARRATIVE from Last 3 Months or Most Recently Relevant to Health Maintenance Insurance HEALTH SAFETY NET PARTIAL Member Subscriber Plan / Payer (Ef fective 2020-Present) Name:Torresmarina Jimenez Javid Relation to Subscriber:Self Name:Torresmarina TinajeroaJavid Payer ID:Not on file Group ID:Not on file Type:Medicaid Address: [address] PCP [employer] A+ Network SAFETY NET PARTIAL [employer]ENSE NON [place]SPG PCP [employer] A+ Network SAFETY NET PARTIAL [place] NON NSPG PCP [employer] A+ Network SAFETY NET PARTIAL Member Subscriber Plan / Payer (Ef fective 2020-Present) Name:Javid Chang Relation to Subscriber:Self Name:Javid Chang Payer ID:Not on file Group ID:Not on file Type:Medicaid Address: [address] NON [place]SP[place] PCP [employer] A+ Network SAFETY NET PARTIAL Member Subscriber Plan / Payer (Ef fective 2020-Present) Name:Javid Chang Relation to Subscriber:Self Name:Javid Chang Payer ID:Not on file Group ID:Not on file Type:Medicaid Address: [address] NON [place] PCP [employer] A+ Network SAFETY NET PARTIAL Member Subscriber Plan / Payer (Ef fective 2020-Present) Name:Javid Chang Relation to Subscriber:Self Name:Javid Chang Payer ID:Not on file Group ID:Not on file Type:Medicaid Address: [address] NON [place] PCP [employer] NET PARTIAL Member Subscriber Plan / Payer (Ef fective 2020-Present) Name:Javid Chang Relation to Subscriber:Self Name:Javid Chang Payer ID:Not on file Group ID:Not on file Type:Medicaid Address: [address] NON [place] PCP [employer] HEALTH SAFETY NET PARTIAL ENSE NON NSPG PCP S[employer] HEALTH SAFETY NET PARTIAL WELLSENSE NON NSPG PCP [employer] Care Teams Press Tool Maker Relationship Specialty Start Date End Date Jovanni Fine PA [facility] [place] [address] PCP - General 01/26/19 Chicho Venegas MD [address] [place] [phone] Insurance Assigned Provider Internal Medicine 05/22/20 Additional Source Comments The information contained in this document represents components of the legal health record. It is not the complete legal health record.[facility]
== END 2025-07-27 11:59 | disposition home or self-care (01) ==
LOC: HO.HWS 09:28
PROVIDERS: PCP Physician Assistant; Visit Provider Advanced Practice Midwife
DX: Z01.419 Encounter for gynecological examination (general) (routine) without abnormal findings (principal); E11.42 Type 2 diabetes mellitus with diabetic polyneuropathy; N95.1 Menopausal and female climacteric states; Z85.44 Personal history of malignant neoplasm of other female genital organs; Z87.898 Personal history of other specified conditions; Z90.3 Acquired absence of stomach [part of]; Z98.890 Other specified postprocedural states
CPT/HCPCS: 99386; 99459